=== PATIENT | male | born 1950 | race Caucasian/White ===

== ENCOUNTER → 2018-05-24 09:25 | Outpatient (CLI) | payer MEDICARE, OTHER, SELFPAY ==
--- NOTE | 2018-05-24 | DI.MG.S_ITS ---
MALE BILATERAL DIGITAL DIAGNOSTIC MAMMOGRAM 3D/2D: 05/24/2018 CLINICAL: Left breast pain. Comparison is made to exam dated: 04/27/2017 mammogram - [facility]. There is gynecomastia in the left breast. This is increased in extent when compared with the study dated 04/27/17. No significant masses, calcifications, or other findings are seen in either breast. IMPRESSION: Gynecomastia of the left breast, increased in extent when compared with the prior study. A review of the patient's medications is recommended as some medications can cause gynecomastia. Clinical follow up for resolution is also recommended. There is no mammographic evidence of malignancy. This exam was interpreted at Station ID: [id number]. NOTE: For mammograms, a report in lay terms will be sent to the patient. Approximately 15% of breast malignancies will not be visualized mammographically. In the management of a palpable breast mass, a negative mammogram must not discourage biopsy of a clinically suspicious lesion. Electronically Signed By: Hilda Mittal M.D. lk/:05/24/2018 10:20:52 letter sent: Clinical Evaluation ACR BI-RADS Category 2: Benign Finding(s) 3342F
== END ==
PROVIDERS: PCP Student in an Organized Health Care Education/Training Program; Visit Provider Student in an Organized Health Care Education/Training Program
DX: N64.4 Mastodynia (principal); N62 Hypertrophy of breast
CPT/HCPCS: 77066; G0279

== ENCOUNTER → 2018-06-03 09:09 | Outpatient (CLI) | payer MEDICARE, OTHER, SELFPAY | PROVIDERS: PCP Student in an Organized Health Care Education/Training Program; Visit Provider Student in an Organized Health Care Education/Training Program | DX: N62 Hypertrophy of breast (principal) | CPT/HCPCS: 36415; 84403 ==

== ENCOUNTER → 2018-06-14 15:17 | Outpatient (CLI) | payer MEDICARE, OTHER, SELFPAY ==
[2018-06-14 16:52] LABS: HCG Quantitative /Beta subunit 2.59 mIU/mL (-2.40)
== END ==
PROVIDERS: PCP Student in an Organized Health Care Education/Training Program; Visit Provider Student in an Organized Health Care Education/Training Program
DX: N62 Hypertrophy of breast (principal)
CPT/HCPCS: 36415; 83001; 83002; 84702

== ENCOUNTER → 2018-07-10 09:06 | Outpatient (CLI) | payer MEDICARE, OTHER, SELFPAY ==
[2018-07-10 09:58] LABS: Add Manual Diff / Slide Review NO; Basophils Absolute Auto 0 /uL (0-100); Basophils Percent Auto 0.3 % (0-2); Eosinophils Absolute Auto 300 /uL (0-450); Eosinophils Percent Auto 5.5 % (2-4); Hematocrit 42.1 % (41-53); Hemoglobin 14.6 g/dL (13.5-17.5); Lymphocytes Absolute Auto 900 /uL (1100-4500); Lymphocytes Percent Auto 17.8 % (25-40); Mean Corpuscular HGB Conc 34.6 % (30-36); Mean Corpuscular Hemoglobin 30.9 PG (26-34); Mean Corpuscular Volume 89.4 fL (80-100); Monocytes Absolute Auto 500 /uL (0-900); Monocytes Percent Auto 10.7 % (3-14); Neutrophils Absolute Auto 3200 /uL (1500-7000); Neutrophils Percent Auto 65.7 % (50-75); Platelet Count 132 X10^3/uL (150-400); Red Blood Cell Count 4.71 X10^6/uL (4.5-5.9); Red Cell Distribution Width 13.6 % (11.6-14.8); White Blood Cell Count 4.8 X10^3/uL (4.5-11.0)
[2018-07-10 10:11] LABS: Alanine Aminotransferase 17 IU/L (21-72); Albumin 4.2 g/dL (3.5-5.0); Albumin Globulin Ratio 1.3 (1.0-2.8); Alkaline Phosphatase 82 U/L (38-126); Aspartate Aminotransferase 26 IU/L (17-59); Bilirubin Total 0.9 mg/dL (0.2-1.3); Blood Urea Nitrogen 17 mg/dL (9-20); Calcium 9.4 mg/dL (8.4-10.2); Carbon Dioxide 26 mmol/L (22-32); Chloride 104 mmol/L (98-107); Cholesterol 230 mg/dL (140-199); Estimated Glomerular Filt Rate > 60.0 mL/min (>60); Globulin 3.2 g/dL (1.7-4.1); Glucose 104 mg/dL (80-110); HDL Cholesterol 63 mg/dL (40-60); HEMOLYSIS < 15 (0-50); LDL Cholesterol Calculated 154 mg/dL (<100); Sodium 139 mmol/L (137-145); Total Protein 7.4 g/dL (6.3-8.2); Triglycerides 67 mg/dL (35-150)
== END ==
PROVIDERS: PCP Student in an Organized Health Care Education/Training Program; Visit Provider Student in an Organized Health Care Education/Training Program
DX: F32.9 Major depressive disorder, single episode, unspecified (principal); E78.5 Hyperlipidemia, unspecified
CPT/HCPCS: 36415; 80053; 80061; 85025

== ENCOUNTER → 2018-09-08 12:39 | Outpatient (CLI) | payer MEDICARE, OTHER, SELFPAY | PROVIDERS: PCP Student in an Organized Health Care Education/Training Program; Visit Provider Nurse Practitioner | DX: M89.9 Disorder of bone, unspecified (principal); M40.204 Unspecified kyphosis, thoracic region; M85.80 Other specified disorders of bone density and structure, unspecified site | CPT/HCPCS: 77080 ==

== ENCOUNTER → 2018-11-24 08:11 | Outpatient (CLI) | payer MEDICARE, OTHER, SELFPAY ==
[2018-11-24 09:45] LABS: Alanine Aminotransferase 16 IU/L (21-72); Albumin 4.3 g/dL (3.5-5.0); Albumin Globulin Ratio 1.4 (1.0-2.8); Alkaline Phosphatase 87 U/L (38-126); Aspartate Aminotransferase 29 IU/L (17-59); BUN Creatinine Ratio 16.7 (6-22); Bilirubin Total 0.9 mg/dL (0.2-1.3); Blood Urea Nitrogen 15 mg/dL (9-20); Calcium 9.7 mg/dL (8.4-10.2); Carbon Dioxide 28 mmol/L (22-32); Chloride 105 mmol/L (98-107); Cholesterol 218 mg/dL (140-199); Estimated Glomerular Filt Rate > 60.0 mL/min (>60); Globulin 3.1 g/dL (1.7-4.1); Glucose 96 mg/dL (80-110); HDL Cholesterol 51 mg/dL (40-60); HEMOLYSIS 20 (0-50); LDL Cholesterol Calculated 143 mg/dL (<100); Potassium 4.9 mmol/L (3.4-5.1); Sodium 139 mmol/L (137-145); Total Protein 7.4 g/dL (6.3-8.2); Triglycerides 118 mg/dL (35-150)
== END ==
PROVIDERS: PCP Student in an Organized Health Care Education/Training Program; Visit Provider Student in an Organized Health Care Education/Training Program
DX: E78.5 Hyperlipidemia, unspecified (principal)
CPT/HCPCS: 36415; 80053; 80061

== ENCOUNTER → 2020-04-02 14:42 | Outpatient (ROUT) | payer MEDICARE, OTHER, SELFPAY ==
[2020-04-02 14:55] LABS: Add Manual Diff / Slide Review NO; Basophils Absolute Auto 0 /uL (0-100); Basophils Percent Auto 0.3 % (0-2); Eosinophils Absolute Auto 100 /uL (0-450); Eosinophils Percent Auto 2.1 % (2-4); Hemoglobin 14.9 g/dL (13.5-17.5); Lymphocytes Absolute Auto 800 /uL (1100-4500); Lymphocytes Percent Auto 14.1 % (25-40); Mean Corpuscular HGB Conc 33.8 % (30-36); Mean Corpuscular Hemoglobin 30.9 PG (26-34); Mean Corpuscular Volume 91.4 fL (80-100); Monocytes Absolute Auto 500 /uL (0-900); Monocytes Percent Auto 8.4 % (3-14); Neutrophils Absolute Auto 4100 /uL (1500-7000); Neutrophils Percent Auto 75.1 % (50-75); Platelet Count 135 X10^3/uL (150-400); Red Blood Cell Count 4.81 X10^6/uL (4.5-5.9); Red Cell Distribution Width 13.1 % (11.6-14.8); White Blood Cell Count 5.4 X10^3/uL (4.5-11.0)
[2020-04-02 14:57] LABS: Alanine Aminotransferase 19 IU/L (<50); Albumin 4.4 g/dL (3.5-5.0); Albumin Globulin Ratio 1.4 (1.0-2.8); Alkaline Phosphatase 96 U/L (38-126); Aspartate Aminotransferase 28 IU/L (17-59); BUN Creatinine Ratio 17.8 (6-22); Bilirubin Total 0.9 mg/dL (0.2-1.3); Blood Urea Nitrogen 19 mg/dL (9-20); Calcium 10.3 mg/dL (8.4-10.2); Carbon Dioxide 29 mmol/L (22-32); Chloride 102 mmol/L (98-107); Cholesterol 168 mg/dL (140-199); Estimated Glomerular Filt Rate > 60.0 mL/min (>60); Globulin 3.1 g/dL (1.7-4.1); Glucose 102 mg/dL (80-110); HDL Cholesterol 66 mg/dL (40-60); HEMOLYSIS < 15 (0-50); LDL Cholesterol Calculated 84 mg/dL (<100); Potassium 4.1 mmol/L (3.4-5.1); Sodium 137 mmol/L (137-145); Total Protein 7.5 g/dL (6.3-8.2); Triglycerides 89 mg/dL (35-150)
== END ==
PROVIDERS: PCP Student in an Organized Health Care Education/Training Program; Visit Provider Student in an Organized Health Care Education/Training Program
DX: Z00.00 Encounter for general adult medical examination without abnormal findings (principal); E78.5 Hyperlipidemia, unspecified
CPT/HCPCS: 80053; 80061; 85025

== ENCOUNTER → 2021-05-28 19:06 | Outpatient (CLI) | payer MEDICARE, OTHER, SELFPAY ==
[2021-05-28 20:03] LABS: COVID19 -Nasal RAPID POSITIVE (Negative)
== END ==
PROVIDERS: PCP Student in an Organized Health Care Education/Training Program; Visit Provider Physician Assistant
DX: Z20.822 Contact with and (suspected) exposure to COVID-19 (principal)
CPT/HCPCS: 87635

== ENCOUNTER → 2021-12-17 08:31 | Outpatient (CLI) | payer MEDICARE, OTHER, SELFPAY ==
[2021-12-17 10:15] LABS: Add Manual Diff / Slide Review NO; Basophils Absolute Auto 0 /uL (0-100); Basophils Percent Auto 0.2 % (0-2); Eosinophils Absolute Auto 300 /uL (0-450); Eosinophils Percent Auto 5.4 % (2-4); Hematocrit 41.9 % (41-53); Hemoglobin 14.2 g/dL (13.5-17.5); Lymphocytes Absolute Auto 1000 /uL (1100-4500); Lymphocytes Percent Auto 20.2 % (25-40); Mean Corpuscular Hemoglobin 30.1 PG (26-34); Mean Corpuscular Volume 88.5 fL (80-100); Monocytes Absolute Auto 600 /uL (0-900); Neutrophils Absolute Auto 3200 /uL (1500-7000); Neutrophils Percent Auto 63.2 % (50-75); Platelet Count 121 X10^3/uL (150-400); Red Blood Cell Count 4.73 X10^6/uL (4.5-5.9); Red Cell Distribution Width 13.8 % (11.6-14.8)
[2021-12-17 10:44] LABS: Alanine Aminotransferase 18 IU/L (<50); Albumin 4.1 g/dL (3.5-5.0); Albumin Globulin Ratio 1.2 (1.0-2.8); Alkaline Phosphatase 87 U/L (38-126); Aspartate Aminotransferase 24 IU/L (17-59); Bilirubin Total 0.9 mg/dL (0.2-1.3); Blood Urea Nitrogen 12 mg/dL (9-20); Calcium 9.2 mg/dL (8.4-10.2); Carbon Dioxide 28 mmol/L (22-32); Chloride 103 mmol/L (98-107); Cholesterol 233 mg/dL (140-199); Estimated Glomerular Filt Rate > 60 mL/min (>60); Globulin 3.3 g/dL (1.7-4.1); Glucose 89 mg/dL (80-110); HDL Cholesterol 46 mg/dL (40-60); HEMOLYSIS < 15 (0-50); LDL Cholesterol Calculated 156 mg/dL (<100); Potassium 4.8 mmol/L (3.4-5.1); Sodium 139 mmol/L (137-145); Total Protein 7.4 g/dL (6.3-8.2); Triglycerides 155 mg/dL (35-150)
[2021-12-17 11:13] LABS: Prostate Specific Antigen 1.86 ng/mL (0.10-4.00)
[2021-12-17 11:32] LABS: Hep C Virus Ab w/Reflex Quant NEGATIVE s/c (NEGATIVE)
== END ==
PROVIDERS: PCP Nurse Practitioner; Referring Provider Nurse Practitioner; Visit Provider Nurse Practitioner
DX: D69.3 Immune thrombocytopenic purpura (principal); E78.5 Hyperlipidemia, unspecified; G43.009 Migraine without aura, not intractable, without status migrainosus; Z79.899 Other long term (current) drug therapy; Z12.5 Encounter for screening for malignant neoplasm of prostate
CPT/HCPCS: 36415; 80053; 80061; 84153; 85025; 86803; G0103

== ENCOUNTER → 2022-04-03 08:08 | Outpatient (CLI) | payer MEDICARE, OTHER, SELFPAY ==
[2022-04-03 10:28] LABS: Alanine Aminotransferase 19 IU/L (<50); Albumin 4.2 g/dL (3.5-5.0); Albumin Globulin Ratio 1.4 (1.0-2.8); Alkaline Phosphatase 70 U/L (38-126); Aspartate Aminotransferase 26 IU/L (17-59); BUN Creatinine Ratio 15.6 (6-22); Bilirubin Total 0.9 mg/dL (0.2-1.3); Blood Urea Nitrogen 15 mg/dL (9-20); Carbon Dioxide 27 mmol/L (22-32); Chloride 100 mmol/L (98-107); Cholesterol 184 mg/dL (140-199); Estimated Glomerular Filt Rate > 60 mL/min (>60); Globulin 2.9 g/dL (1.7-4.1); Glucose 83 mg/dL (80-110); HDL Cholesterol 61 mg/dL (40-60); HEMOLYSIS < 15 (0-50); LDL Cholesterol Calculated 105 mg/dL (<100); Potassium 4.1 mmol/L (3.4-5.1); Sodium 137 mmol/L (137-145); Total Protein 7.1 g/dL (6.3-8.2); Triglycerides 92 mg/dL (35-150)
[2022-04-03 10:42] LABS: Free T3, Triiodothyronine Free 3.32 pg/mL (2.77-5.27); Free T4, Direct Thyroxine 1.13 ng/dL (0.78-2.19)
[2022-04-03 10:55] LABS: Thyroid Stimulating Hormone 3.55 uIU/mL (0.47-4.68)
== END ==
PROVIDERS: PCP Nurse Practitioner; Referring Provider Nurse Practitioner; Visit Provider Nurse Practitioner
DX: E78.5 Hyperlipidemia, unspecified (principal); Z79.899 Other long term (current) drug therapy
CPT/HCPCS: 36415; 80053; 80061; 84439; 84443; 84481

== ENCOUNTER 2022-05-05 12:15 | Day surgery (SDC) | payer MEDICARE, OTHER, SELFPAY ==
[2022-04-28 14:34] VITALS: BMI 25.8
[2022-05-05 12:29] VITALS: BMI 25.8
[2022-05-05 12:39] VITALS: BP 132/82; PULSE 99; RESP 16; TEMP 36.3; O2SAT 100
[2022-05-05 13:06] LABS: Add Manual Diff / Slide Review NO; Basophils Absolute Auto 0 /uL (0-100); Basophils Percent Auto 0.3 % (0-2); Eosinophils Absolute Auto 100 /uL (0-450); Eosinophils Percent Auto 1.8 % (2-4); Hematocrit 40.2 % (41-53); Hemoglobin 13.6 g/dL (13.5-17.5); Lymphocytes Absolute Auto 700 /uL (1100-4500); Lymphocytes Percent Auto 13.4 % (25-40); Mean Corpuscular HGB Conc 33.8 % (30-36); Mean Corpuscular Hemoglobin 30.7 PG (26-34); Mean Corpuscular Volume 90.9 fL (80-100); Monocytes Absolute Auto 700 /uL (0-900); Monocytes Percent Auto 12.7 % (3-14); Neutrophils Absolute Auto 3700 /uL (1500-7000); Neutrophils Percent Auto 71.8 % (50-75); Platelet Count 103 X10^3/uL (150-400); Red Blood Cell Count 4.43 X10^6/uL (4.5-5.9); Red Cell Distribution Width 14.4 % (11.6-14.8); White Blood Cell Count 5.2 X10^3/uL (4.5-11.0)
--- NOTE | 2022-05-05 13:23 | PM.PREOP ---
Pre-operative Note COVID-19 COVID-19 status: Not tested Interval Note History & Physical reviewed/Exam performed by Physician: Yes Changes to H&P: No ASA Class (for procedural sedation): II
[2022-05-05] MEDS: CLINDAMYCIN 900 MG/50 ML PIGGYBACK 50 MG IV (13:51)
--- NOTE | 2022-05-05 14:01 | SUR.OPER ---
Supine on padded OR bed, head on pillow, arms secured on padded arm boards at <90 degrees abduction, legs uncrossed, safety belt at thigh, tape over blanket over lower legs.
[2022-05-05 14:59] VITALS: BP 93/58; PULSE 65; RESP 12; TEMP 35.7; O2SAT 95
--- NOTE | 2022-05-05 15:01 | P.OP_ITS ---
Operative Date/Time/Diagnoses Date of procedure: 05/05/22 Time of procedure: 15:01 Pre-op diagnosis: Right inguinal hernia Procedure & Clinicians Procedure: Open right inguinal hernia repair with mesh Same procedure as scheduled: Yes Surgeon: Jack Culp Anesthesia Type: General Operative Notes Procedure in detail: Preoperative antibiotic was administered. The patient was brought to the operating room and placed on the table in supine position general anesthesia was induced. The right groin was prepped and draped in the normal fashion and a time-out was performed. Roughly 10 mL of local anesthetic were injected into the skin and subcutaneous adipose tissue over the right groin. A 6 cm incision was made over the right inguinal canal. Dissection was carried down through the subcutaneous adipose tissue. We exposed the external oblique aponeurosis in the direction of the fibers. Additional local was injected deep to the aponeurosis. A 15 blade scalpel was used to jorge the external oblique aponeurosis. Metzenbaum scissors were used to carefully open the aponeurosis in the direction of the fibers taking care not to injure the underlying ilioinguinal nerve which was well seen and protected. We completely exposed the inguinal canal. The cord was dissected free from the inguinal ligament and floor of the inguinal canal and the external oblique aponeurosis was dissected off of the internal oblique taking care not to injure the hypogastric nerve. We encircled the cord with a Christina drain for retraction. There was a rather large direct defect. We dissected the hernia free from the cord and with the aid of some Trendelenburg positioning we allowed to fall back into the abdominal cavity. We closed the floor with 4 interrupted 3-0 Vicryl sutures to keep the hernia contents down. We then placed a polypropylene mesh against the floor of the inguinal canal. The mesh was secured with multiple interrupted 3-0 Prolene sutures to the pubic tubercle and shelving edge of the inguinal ligament as well as to the conjoint tendon medially. We overlapped the tails to recreate an internal ring and secured the medial tail to the inguinal ligament with additional sutures. We injected some more local into the fatty tissue in the inguinal canal and cord. Finally, we removed the Swengel drain and closed the external oblique fascia with a running 3-0 Vicryl suture. Skin was closed with interrupted 3-0 Vicryl dermal sutures and a running 4 Monocryl subcuticular stitch. EBL 5 mL The patient was awakened and brought to recovery room. Post-operative Condition: stable Disposition: PACU
[2022-05-05 15:03] VITALS: BP 105/70; PULSE 69; RESP 12; O2SAT 98
[2022-05-05 15:08] VITALS: BP 107/70; PULSE 64; RESP 14; O2SAT 96
[2022-05-05 15:18] VITALS: BP 107/70; PULSE 63; RESP 14; O2SAT 98
== END 2022-05-05 16:02 | disposition home or self-care (01) ==
PROVIDERS: PCP Nurse Practitioner; Referring Provider Surgery; Visit Provider Surgery
PROC: (CPT 49505; principal; 2022-05-05 13:15)
DX: K40.90 Unilateral inguinal hernia, without obstruction or gangrene, not specified as recurrent (principal)
CPT/HCPCS: 49505; 85025; J1100; J2250; J2405; J2704; J3010

== ENCOUNTER → 2022-09-18 12:19 | Outpatient (CLI) | payer MEDICARE, OTHER, SELFPAY | PROVIDERS: Family Provider Nurse Practitioner; PCP Nurse Practitioner; Referring Provider Family Medicine; Visit Provider Family Medicine | DX: R20.2 Paresthesia of skin (principal) | CPT/HCPCS: 95886; 95910 ==

== ENCOUNTER → 2022-10-16 08:17 | Outpatient (CLI) | payer MEDICARE, OTHER, SELFPAY ==
[2022-10-16 09:58] LABS: Add Manual Diff / Slide Review NO; Basophils Absolute Auto 0 /uL (0-100); Basophils Percent Auto 0.3 % (0-2); Eosinophils Absolute Auto 100 /uL (0-450); Hematocrit 40.4 % (41-53); Hemoglobin 13.6 g/dL (13.5-17.5); Lymphocytes Absolute Auto 900 /uL (1100-4500); Mean Corpuscular HGB Conc 33.7 % (30-36); Mean Corpuscular Hemoglobin 31.4 PG (26-34); Mean Corpuscular Volume 93.1 fL (80-100); Monocytes Absolute Auto 500 /uL (0-900); Neutrophils Absolute Auto 2900 /uL (1500-7000); Neutrophils Percent Auto 63.7 % (50-75); Platelet Count 156 X10^3/uL (150-400); Red Blood Cell Count 4.33 X10^6/uL (4.5-5.9); Red Cell Distribution Width 13.8 % (11.6-14.8); White Blood Cell Count 4.5 X10^3/uL (4.5-11.0)
[2022-10-16 10:46] LABS: Alanine Aminotransferase 18 IU/L (<50); Albumin 3.9 g/dL (3.5-5.0); Albumin Globulin Ratio 1.3 (1.0-2.8); Alkaline Phosphatase 60 U/L (38-126); Aspartate Aminotransferase 28 IU/L (17-59); Bilirubin Total 0.7 mg/dL (0.2-1.3); Blood Urea Nitrogen 26 mg/dL (9-20); Calcium 8.8 mg/dL (8.4-10.2); Carbon Dioxide 28 mmol/L (22-32); Chloride 101 mmol/L (98-107); Cholesterol 302 mg/dL (140-199); Estimated Glomerular Filt Rate > 60 mL/min (>60); Globulin 3.1 g/dL (1.7-4.1); Glucose 90 mg/dL (80-110); HDL Cholesterol 63 mg/dL (40-60); HEMOLYSIS < 15 (0-50); LDL Cholesterol Calculated 220 mg/dL (<100); Potassium 4.2 mmol/L (3.4-5.1); Sodium 137 mmol/L (137-145); Triglycerides 93 mg/dL (35-150)
== END ==
PROVIDERS: Family Provider Nurse Practitioner; PCP Nurse Practitioner; Referring Provider Nurse Practitioner; Visit Provider Nurse Practitioner
DX: D69.3 Immune thrombocytopenic purpura (principal); E78.5 Hyperlipidemia, unspecified; G43.009 Migraine without aura, not intractable, without status migrainosus; Z79.899 Other long term (current) drug therapy
CPT/HCPCS: 36415; 80053; 80061; 85025

== ENCOUNTER 2022-12-01 09:00 | Outpatient (RCR) | payer MEDICARE, OTHER, SELFPAY ==
--- NOTE | 2022-10-03 13:33 | PT.OPPOC ---
Physical, Occupational & Speech Therapy At [facility] Current Diagnoses Other abnormalities of gait and mobility (10/03/22) History of falling (10/03/22) Visit Care Team Role Provider Type DMITRY Matos Attending Provider Advanced Nursing Home Social Worker Family Provider Primary Care Provider Referring Provider Specialty: [facility] Practice Address: [address] [place] [address], [facility] Email: [email or web address] Plan Of Care PT-OP-T Assessment and Plan Start: 10/02/22 16:01 Freq: Status: Active Protocol: Document 10/03/22 13:33 AM (Rec: 10/03/22 16:00 AM [id number]) Physical Therapy Assessment Rehab Potential Rehabilitation Potential Good Evaluation Complexity Number of Personal Factors/Comorbidities 1-2 Number of Body Systems Impaired 1-2 Clinical Presentation at Evaluation Stable Impairments Impairments Balance,Coordination, Functional Activities,Posture, ROM,Soft Tissue Mobility, Strength Goals Five Impairment Hip strength Impairment Pt with 4-/5 to 4/5 hip strength. Shelter Goal (LTG) Pt able to demonstrate 4/5-4+/ 5 hip strength grossly. LTG Duration 4 weeks Four Impairment HEP Impairment Pt not currently participating in HEP. Shelter Goal (LTG) Pt independent with HEP. LTG Duration 4 weeks Three Impairment Trunk mobility Impairment Pt demonstrates limited trunk mobility in all directions by 50% Shelter Goal (LTG) Pt able to demonstrate 25% improvement in trunk mobility in all directions. LTG Duration 4 weeks Two Impairment Balance Impairment Pt able to maintain balance on R LE for 12 seconds and L for 4 seconds. Short Term Goal (STG) Pt able to maintain balance for 15 seconds on ea LE. STG Duration 2 weeks Shelter Goal (LTG) Pt able to maintain balance for 20 seconds ea LE. LTG Duration 4 weeks One Impairment Bilateral foot symptoms Impairment Pt rates foot numbness at 7/10 . Short Term Goal (STG) Pt will report foot numbness rating at 4/10. STG Duration 2 weeks Shelter Goal (LTG) Pt will report foot numbness rating at 2/10. LTG Duration 4 weeks Progress Towards Goals Progress Towards Goals Progressing Toward Goals Assessment Summary Assessment Santos Schwartz presents to PT to address bilateral foot numbness, which began in the last year. Pt reported decrease in symptoms during tx session with general activity , though no reported change with specific positions. Pt demonstrated good balance per Bradley Balance Assessment. Pt does demonstrate increased difficulty with maintaining balance on uneven surfaces and with SLS. Pt demonstrated R hip anterior impingement with SKTC and DKTC. Pt presents with sway posture and demonstrates trunk stiffness in all directions. Pt also demonstrates bilateral hamstring and hip flexor stiffness. Pt given LE and trunk stretches in HEP, though encouraged to avoid painful ranges. Pt with trunk and hip strength deficits and would benefit from trunk stabilization as tolerated in future visits. Pt would benefit from continued PT to improve trunk mobility, strength and balance to decrease fall risk with continued monitoring of foot symptoms. Physical Therapy Plan Frequency and Duration Frequency of Treatment 2x/Week Duration of treatment (weeks) 4 Plan of Care Start Date 10/03/22 Plan of Care End Date 10/31/22 Therapeutic Interventions Therapeutic Interventions Balance Training,Coordination Training,Gait Training,Home Exercise Program,Joint Mobilizations,Neuromuscular Re -education,Patient/Caregiver Education,Self-Care/Home Management,Soft Tissue Mobilization,Taping, Therapeutic Activities, Therapeutic Exercises Modalities Cold Pack/Ice Massage,Electric Stimulation,Hot Packs, Ultrasound Next Visit Focus/Plan Next Note Type Treatment Note Next Visit Plan Balance exercises, progress spinal mobility and LE flexibility, manual techniques to decompress lumbosacral spine Plan of Care Dates Plan of Care Start Date 10/03/22 Plan of Care End Date 10/31/22 Electronically Signed by: Mita Dailey, PT 10/03/22 [id number] If you are in agreement with this Plan of Care, please return a signed and dated copy. I have reviewed this Plan of Care and certify that the skilled therapy services above are required to meet the patient?s needs. Physician Signature Date Printed Name and Credentials Clinical Instructor Signature Printed Name and Credentials
--- NOTE | 2022-10-03 13:33 | PT.OIE ---
Current Diagnoses Other abnormalities of gait and mobility (10/03/22) History of falling (10/03/22) Past Medical History (Last Updated 09/11/22 @ 11:50 by DMITRY Matos) Asthma Atopic dermatitis Chronic ITP (idiopathic thrombocytopenia) History of ITP Hyperlipidemia Inguinal hernia Migraine headache without aura Numbness of toes Past Surgical History (Last Reviewed 09/11/22 @ 11:48 by DMITRY Matos) Seco teeth removed Visit Care Team Role Provider Type DMITRY Matos Attending Provider Advanced Desulfurizer Hand Family Provider Primary Care Provider Referring Provider Specialty: Family Practice Address: [address] [place] [address] Email: [email or web address] Physical Therapy Initial Evaluation PT-OP-A Visit Information Start: 10/02/22 16:01 Freq: Status: Active Protocol: Document 10/03/22 13:33 AM (Rec: 10/03/22 16:00 AM [id number]) Out-Patient Physical Therapy Visit Information Visit Information Visit Type Initial Evaluation Visit Start Time 13:33 Visit Stop Time 14:25 Total Visit Minutes 52 Visit Number 1 Number of TRANSMITTER OPERATOR Visits 0 Evaluation Information Evaluation Date 10/03/22 PT-OP-B Current Condition Start: 10/02/22 16:01 Freq: Status: Active Protocol: Document 10/03/22 13:33 AM (Rec: 10/03/22 16:00 AM [id number]) Current Condition History of Current Condition Onset Date End of 2021/early 2022 Current Complaints c/o numbness bilateral toes. History of Current Condition c/o numbness bilateral toes. Denies pain in toes. First noticed this feeling on the left side, but now notices it in R as well. Pt has Raynauds. c/o generally cold feet unless he goes for a walk, then they are warm. Pt had a fall a few months ago. Pt stubbed his toe and fell. Pt reports that he has not noticed instability with numbness in feet. Pt interested in PT for core strength, balance. 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, ongoing denervation in bilatearl MG/ glut max/lower lumbosacral paraspinal muscles; Right L5 spinal nerve lesion affecting R TA/FHL/lower lumbosavral paraspinal muscles; Left chronic L5 spinal nerve lesion Treatment Goals Patient/Caregiver Goals Improve balance, decrease numbness symptoms at feet PT-OP-C Subjective Start: 10/02/22 16:01 Freq: Status: Active Protocol: Document 10/03/22 13:33 AM (Rec: 10/03/22 16:00 AM [id number]) OP-PT Subjective Patient Comments Patient Reported Progress Same Patient Questionnaires ABC- Activity Specific Balance Confidence Scale ABC Score 1520 ABC Functional Impairment 1 to <20% Impaired (Score 81- 99) OP-PT Pain Assessment Pain Assessment Grid Paper Pain Assessment Grid Completed No: Pt reports that he has not pain currently. Pt reports LBP rarely Location Bilateral Foot Pain Location Details No pain, though pt asked to rate numbness Intensity 7 Scale Used Numeric (0 - 10) Description- Other Numbness only Frequency Constant Variations/Patterns Pt feels symptoms are slightly better after walking Pain Aggravating Factors None Other Pain Alleviating Factors Walking helps PT-OP-D Balance Start: 10/02/22 16:01 Freq: Status: Active Protocol: Document 10/03/22 13:33 AM (Rec: 10/03/22 16:00 AM [id number]) OP-PT Balance Assessment Sitting Balance Static Sitting Balance Ability Normal Dynamic Sitting Balance Ability Normal Standing Balance Static Standing Balance Ability Good Dynamic Standing Balance Ability Good Balance Tests Single Limb Standing Single Limb- Right 12 sec Single Limb- Left 4 sec Tandem Tandem Standing 30 sec Bradley Balance Assessment Evaluation Sitting to Standing Ability Independent w/out Hands Unsupported Stance Safely- 2 minutes Sitting Unsupported, Feet on Floor Safely- 2 minutes Standing to Sitting Ability Safely, Minimal Hand Use Transfer Ability Safely, Minimal Hand Use Unsupported Stance- Eyes Closed Safely, 10 seconds Unsupported Stance- Eyes Open Independent, 1 minute Reaching Forward Standing Confidently, 10 inches Pick- Up Object From Floor Independent/Safe Look Behind Shoulder - Standing Shifts Weight Well Turning 360 Degrees Turns Bilateral, < 4 secs Unsupported Stance, Alternating Feet on (I)- 8 Steps in 20 secs Stair Unsupported Tandem Stance Achieves Tandem Unilateral Leg Stance Lifts Leg/Holds 10 secs Total Score Bradley Total Score (out of 56 points) 56 Bradley Impairment Rating 0% Impaired (Score 56) Mkcay Fall Scale Copyright Permission PT-OP-E Functional Tests Start: 10/02/22 16:01 Freq: Status: Active Protocol: Document 10/03/22 13:33 AM (Rec: 10/03/22 16:00 AM [id number]) Functional Tests Five Times Sit to Stand Test Score :9.23 Comments cued to not use back of legs against chair PT-OP-G Mobility & Gait Start: 10/02/22 16:01 Freq: Status: Active Protocol: Document 10/03/22 13:33 AM (Rec: 10/03/22 16:00 AM [id number]) OP Gait Assessment Gait Gait Assistance Required: Independent Assistive Devices Assistive Device None Gait Deviations General Gait Pattern Flexed Trunk Factors Limiting Gait Function Factors Limiting Gait Function Decreased Sensation PT-OP-H Neuro Start: 10/02/22 16:01 Freq: Status: Active Protocol: Document 10/03/22 13:33 AM (Rec: 10/03/22 16:00 AM [id number]) Sensation Evaluation Gross Sensation Gross Sensation Left LE Impaired,Right LE Impaired Sensation Description Numbness PT-OP-J Posture/Palpation/Skin Start: 10/02/22 16:01 Freq: Status: Active Protocol: Document 10/03/22 13:33 AM (Rec: 10/03/22 16:00 AM [id number]) Posture Evaluation Position Standing Evaluation View Lateral Head/C-Spine Posture Forward Head T-Spine Posture Increased Kyphosis L-Spine Posture Flattened Shoulder Posture (L) Rounded,(R) Rounded PT-OP-K Range of Motion Start: 10/02/22 16:01 Freq: Status: Active Protocol: Document 10/03/22 13:33 AM (Rec: 10/03/22 16:00 AM [id number]) Lumbar Spine Range of Motion Lumbar Spine Active Percentage Testing Position Standing Flexion 50 Extension 25 Rotation Left 50 Rotation Right 50 Lateral Flexion Left 50 Lateral Flexion Right 50 ROM Limitations Soft Tissue Tightness Comments Flexion Finger-toes: 8 inches from ground R LF:18.5 in L LF: 19.5 in Ext: neutral Knee Goniometric Range of Motion Knee ROM Limitations Knee ROM Limitations Soft Tissue Tightness Comments Hamstring 90/90 R: 32 deg L: 40 deg PT-OP-M Strength Start: 10/02/22 16:01 Freq: Status: Active Protocol: Document 10/03/22 13:33 AM (Rec: 08/25/23 16:00 AM [id number]) Hip Strength Hip Manual Muscle Testing Right Flexion (L2) 4 Good Extension (S1) 4 Good Abduction 4- Good- Adduction 4+ Good+ Left Flexion (L2) 4 Good Extension (S1) 4 Good Abduction 4- Good- Adduction 4+ Good+ Knee Strength Knee Manual Muscle Testing Right Flexion (S2) 4+ Good+ Extension (L3) 4+ Good+ Left Flexion (S2) 4+ Good+ Extension (L3) 4+ Good+ Ankle/Foot Strength Ankle and Foot Manual Muscle Testing Right Dorsiflexion (L4) 5 Normal Plantarflexion (S1) 5 Normal Left Dorsiflexion (L4) 5 Normal Plantarflexion (S1) 5 Normal PT-OP-Q Treatments Start: 10/02/22 16:01 Freq: Status: Active Protocol: Document 10/03/22 13:33 AM (Rec: 10/03/22 16:00 AM [id number]) Therapeutic Exercises Supine Exercises 1 Supine Exercise Name Lower trunk rotation Side bilateral Reps/Minutes x5 ea side Comments Hooklying Standing Exercises 2 Standing Exercise Name Hamstring stretch Side bilateral Equipment Used At stairs, foot propped Reps/Minutes 30 sec ea LE 1 Standing Exercise Name Gastroc stretch runner's stretch Side bilateral Reps/Minutes x30 sec ea PT-OP-T Assessment and Plan Start: 10/02/22 16:01 Freq: Status: Active Protocol: Document 10/03/22 13:33 AM (Rec: 10/03/22 16:00 AM [id number]) Physical Therapy Assessment Rehab Potential Rehabilitation Potential Good Evaluation Complexity Number of Personal Factors/Comorbidities 1-2 Number of Body Systems Impaired 1-2 Clinical Presentation at Evaluation Stable Impairments Impairments Balance,Coordination, Functional Activities,Posture, ROM,Soft Tissue Mobility, Strength Goals Five Impairment Hip strength Impairment Pt with 4-/5 to 4/5 hip strength. Nursing Home Goal (LTG) Pt able to demonstrate 4/5-4+/ 5 hip strength grossly. LTG Duration 4 weeks Four Impairment HEP Impairment Pt not currently participating in HEP. Wafer Line Worker Goal (LTG) Pt independent with HEP. LTG Duration 4 weeks Three Impairment Trunk mobility Impairment Pt demonstrates limited trunk mobility in all directions by 50% Nursing Home Goal (LTG) Pt able to demonstrate 25% improvement in trunk mobility in all directions. LTG Duration 4 weeks Two Impairment Balance Impairment Pt able to maintain balance on R LE for 12 seconds and L for 4 seconds. Short Term Goal (STG) Pt able to maintain balance for 15 seconds on ea LE. STG Duration 2 weeks Wafer Line Worker Goal (LTG) Pt able to maintain balance for 20 seconds ea LE. LTG Duration 4 weeks One Impairment Bilateral foot symptoms Impairment Pt rates foot numbness at 7/10 . Short Term Goal (STG) Pt will report foot numbness rating at 4/10. STG Duration 2 weeks Wafer Line Worker Goal (LTG) Pt will report foot numbness rating at 2/10. LTG Duration 4 weeks Progress Towards Goals Progress Towards Goals Progressing Toward Goals Assessment Summary Assessment Santos Schwartz presents to PT to address bilateral foot numbness, which began in the last year. Pt reported decrease in symptoms during tx session with general activity , though no reported change with specific positions. Pt demonstrated good balance per Bradley Balance Assessment. Pt does demonstrate increased difficulty with maintaining balance on uneven surfaces and with SLS. Pt demonstrated R hip anterior impingement with SKTC and DKTC. Pt presents with sway posture and demonstrates trunk stiffness in all directions. Pt also demonstrates bilateral hamstring and hip flexor stiffness. Pt given LE and trunk stretches in HEP, though encouraged to avoid painful ranges. Pt with trunk and hip strength deficits and would benefit from trunk stabilization as tolerated in future visits. Pt would benefit from continued PT to improve trunk mobility, strength and balance to decrease fall risk with continued monitoring of foot symptoms. Physical Therapy Plan Frequency and Duration Frequency of Treatment 2x/Week Duration of treatment (weeks) 4 Plan of Care Start Date 10/03/22 Plan of Care End Date 10/31/22 Therapeutic Interventions Therapeutic Interventions Balance Training,Coordination Training,Gait Training,Home Exercise Program,Joint Mobilizations,Neuromuscular Re -education,Patient/Caregiver Education,Self-Care/Home Management,Soft Tissue Mobilization,Taping, Therapeutic Activities, Therapeutic Exercises Modalities Cold Pack/Ice Massage,Electric Stimulation,Hot Packs, Ultrasound Next Visit Focus/Plan Next Note Type Treatment Note Next Visit Plan Balance exercises, progress spinal mobility and LE flexibility, manual techniques to decompress lumbosacral spine
--- NOTE | 2022-10-07 10:34 | PT.OTN ---
Current Diagnoses Other abnormalities of gait and mobility (10/07/22) History of falling (10/07/22) Physical Therapy Treatment Note PT-OP-A Visit Information Start: 10/02/22 16:01 Freq: Status: Active Protocol: Document 10/07/22 10:34 AM (Rec: 10/07/22 11:21 AM [id number]) Out-Patient Physical Therapy Visit Information Visit Information Visit Type Treatment Note Visit Start Time 10:34 Visit Stop Time 11:19 Total Visit Minutes 45 Visit Number 2 Number of DIRECTOR FAMILY Visits 0 PT-OP-B Current Condition Start: 10/02/22 16:01 Freq: Status: Active Protocol: Document 10/07/22 10:34 AM (Rec: 10/07/22 11:21 AM [id number]) Current Condition History of Current Condition Onset Date End of 2021/early 2022 Current Complaints c/o numbness bilateral toes. History of Current Condition c/o numbness bilateral toes. Denies pain in toes. First noticed this feeling on the left side, but now notices it in R as well. Pt has Raynauds. c/o generally cold feet unless he goes for a walk, then they are warm. Pt had a fall a few months ago. Pt stubbed his toe and fell. Pt reports that he has not noticed instability with numbness in feet. Pt interested in PT for core strength, balance. 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 Patient Reported Progress Improving PT-OP-D Balance Start: 10/02/22 16:01 Freq: Status: Active Protocol: Document 10/03/22 13:33 AM (Rec: 10/03/22 16:00 AM [id number]) OP-PT Balance Assessment Sitting Balance Static Sitting Balance Ability Normal Dynamic Sitting Balance Ability Normal Standing Balance Static Standing Balance Ability Good Dynamic Standing Balance Ability Good Balance Tests Single Limb Standing Single Limb- Right 12 sec Single Limb- Left 4 sec Tandem Tandem Standing 30 sec Bradley Balance Assessment Evaluation Sitting to Standing Ability Independent w/out Hands Unsupported Stance Safely- 2 minutes Sitting Unsupported, Feet on Floor Safely- 2 minutes Standing to Sitting Ability Safely, Minimal Hand Use Transfer Ability Safely, Minimal Hand Use Unsupported Stance- Eyes Closed Safely, 10 seconds Unsupported Stance- Eyes Open Independent, 1 minute Reaching Forward Standing Confidently, 10 inches Pick- Up Object From Floor Independent/Safe Look Behind Shoulder - Standing Shifts Weight Well Turning 360 Degrees Turns Bilateral, < 4 secs Unsupported Stance, Alternating Feet on (I)- 8 Steps in 20 secs Stair Unsupported Tandem Stance Achieves Tandem Unilateral Leg Stance Lifts Leg/Holds 10 secs Total Score Bradley Total Score (out of 56 points) 56 Bradley Impairment Rating 0% Impaired (Score 56) Mckay Fall Scale Copyright Permission PT-OP-E Functional Tests Start: 10/02/22 16:01 Freq: Status: Active Protocol: Document 10/03/22 13:33 AM (Rec: 10/03/22 16:00 AM [id number]) Functional Tests Five Times Sit to Stand Test Score :9.23 Comments cued to not use back of legs against chair PT-OP-G Mobility & Gait Start: 10/02/22 16:01 Freq: Status: Active Protocol: Document 10/03/22 13:33 AM (Rec: 10/03/22 16:00 AM [id number]) OP Gait Assessment Gait Gait Assistance Required: Independent Assistive Devices Assistive Device None Gait Deviations General Gait Pattern Flexed Trunk Factors Limiting Gait Function Factors Limiting Gait Function Decreased Sensation PT-OP-H Neuro Start: 10/02/22 16:01 Freq: Status: Active Protocol: Document 10/03/22 13:33 AM (Rec: 10/03/22 16:00 AM [id number]) Sensation Evaluation Gross Sensation Gross Sensation Left LE Impaired,Right LE Impaired Sensation Description Numbness PT-OP-J Posture/Palpation/Skin Start: 10/02/22 16:01 Freq: Status: Active Protocol: Document 10/03/22 13:33 AM (Rec: 10/03/22 16:00 AM [id number]) Posture Evaluation Position Standing Evaluation View Lateral Head/C-Spine Posture Forward Head T-Spine Posture Increased Kyphosis L-Spine Posture Flattened Shoulder Posture (L) Rounded,(R) Rounded PT-OP-K Range of Motion Start: 10/02/22 16:01 Freq: Status: Active Protocol: Document 10/03/22 13:33 AM (Rec: 10/03/22 16:00 AM [id number]) Lumbar Spine Range of Motion Lumbar Spine Active Percentage Testing Position Standing Flexion 50 Extension 25 Rotation Left 50 Rotation Right 50 Lateral Flexion Left 50 Lateral Flexion Right 50 ROM Limitations Soft Tissue Tightness Comments Flexion Finger-toes: 8 inches from ground R LF:18.5 in L LF: 19.5 in Ext: neutral Knee Goniometric Range of Motion Knee ROM Limitations Knee ROM Limitations Soft Tissue Tightness Comments Hamstring 90/90 R: 32 deg L: 40 deg PT-OP-M Strength Start: 10/02/22 16:01 Freq: Status: Active Protocol: Document 10/03/22 13:33 AM (Rec: 10/03/22 16:00 AM [id number]) Hip Strength Hip Manual Muscle Testing Right Flexion (L2) 4 Good Extension (S1) 4 Good Abduction 4- Good- Adduction 4+ Good+ Left Flexion (L2) 4 Good Extension (S1) 4 Good Abduction 4- Good- Adduction 4+ Good+ Knee Strength Knee Manual Muscle Testing Right Flexion (S2) 4+ Good+ Extension (L3) 4+ Good+ Left Flexion (S2) 4+ Good+ Extension (L3) 4+ Good+ Ankle/Foot Strength Ankle and Foot Manual Muscle Testing Right Dorsiflexion (L4) 5 Normal Plantarflexion (S1) 5 Normal Left Dorsiflexion (L4) 5 Normal Plantarflexion (S1) 5 Normal PT-OP-Q Treatments Start: 10/02/22 16:01 Freq: Status: Active Protocol: Document 10/07/22 10:34 AM (Rec: 10/07/22 11:21 AM [id number]) Cardio Equipment Recumbent Bicycle Duration (Minutes) 5 Resistance 9 Seat Position 7 Therapeutic Exercises Supine Exercises 1 Supine Exercise Name Lower trunk rotation Side bilateral Reps/Minutes x5 ea side Comments Hooklying Standing Exercises 2 Standing Exercise Name Hamstring stretch Side bilateral Equipment Used At stairs, foot propped Reps/Minutes 30 sec ea LE 1 Standing Exercise Name Gastroc stretch runner's stretch Side bilateral Reps/Minutes x30 sec ea Manual Therapy Treatment Soft Tissue Mobilization Low back STM Body Location Lumbar paraspinals, QL Mobilization Type Myofascial Release Intensity/Depth Moderate Body Position Prone Joint Mobilizations Lumbar P-A Joint L4-5, L5-S1 Direction P-A mob Grade II Body Position Prone Reps/Duration 3x1 min Manual Traction Lumbar Details Lumbar manual traction Body Position Hooklying Reps/Duration 3x1 min Comments LE on green swissball, traction from manually pulling on feet Neuro Re-Education Treatment Balance Activities Stepping pads Details Tandem stance Surface uneven Equipment green stepping pods Reps/Duration x1 min ea side Comments With head turns BOSU balance Details Standing balance on BOSU Equipment BOSU Reps/Duration x2 min Comments With head turns as able PT-OP-T Assessment and Plan Start: 10/02/22 16:01 Freq: Status: Active Protocol: Document 10/07/22 10:34 AM (Rec: 10/07/22 11:21 AM [id number]) Physical Therapy Assessment Impairments Impairments Balance,Coordination, Functional Activities,Posture, ROM,Soft Tissue Mobility, Strength Goals Five Impairment Hip strength Impairment Pt with 4-/5 to 4/5 hip strength. Director Of Public Relations Goal (LTG) Pt able to demonstrate 4/5-4+/ 5 hip strength grossly. LTG Duration 4 weeks Four Impairment HEP Impairment Pt not currently participating in HEP. Jail Goal (LTG) Pt independent with HEP. LTG Duration 4 weeks Three Impairment Trunk mobility Impairment Pt demonstrates limited trunk mobility in all directions by 50% Director Of Public Relations Goal (LTG) Pt able to demonstrate 25% improvement in trunk mobility in all directions. LTG Duration 4 weeks Two Impairment Balance Impairment Pt able to maintain balance on R LE for 12 seconds and L for 4 seconds. Short Term Goal (STG) Pt able to maintain balance for 15 seconds on ea LE. STG Duration 2 weeks Director Of Public Relations Goal (LTG) Pt able to maintain balance for 20 seconds ea LE. LTG Duration 4 weeks One Impairment Bilateral foot symptoms Impairment Pt rates foot numbness at 7/10 . Short Term Goal (STG) Pt will report foot numbness rating at 4/10. STG Duration 2 weeks Jail Goal (LTG) Pt will report foot numbness rating at 2/10. LTG Duration 4 weeks Progress Towards Goals Progress Towards Goals Progressing Toward Goals Assessment Summary Assessment Pt with reported decrease in foot symptoms following tx session, reporting that feet felt warmer. Pt challenged with balance on BOSU today, reporting that he had not had issues with this task prior to recent hernia repair. Pt with minimal tenderness with palpation/STM of lumbar paraspinals today. Pt with reported decrease in symptoms with lumbar P-A mobilizations. Pt will return to PT later this week to continue to progress spinal mobility and balance as tolerated. Physical Therapy Plan Frequency and Duration Frequency of Treatment 2x/Week Duration of treatment (weeks) 4 Plan of Care Start Date 10/03/22 Plan of Care End Date 10/31/22 Therapeutic Interventions Therapeutic Interventions Balance Training,Coordination Training,Gait Training,Home Exercise Program,Joint Mobilizations,Neuromuscular Re -education,Patient/Caregiver Education,Self-Care/Home Management,Soft Tissue Mobilization,Taping, Therapeutic Activities, Therapeutic Exercises Modalities Cold Pack/Ice Massage,Electric Stimulation,Hot Packs, Ultrasound Next Visit Focus/Plan Next Note Type Treatment Note Next Visit Plan Progress balance exercises, add dynamic balance, progress trunk exercises as tolerated
--- NOTE | 2022-10-09 10:35 | PT.OTN ---
Current Diagnoses Other abnormalities of gait and mobility (10/09/22) History of falling (10/09/22) Physical Therapy Treatment Note PT-OP-A Visit Information Start: 10/02/22 16:01 Freq: Status: Active Protocol: Document 10/09/22 10:35 AM (Rec: 10/09/22 11:37 AM [id number]) Out-Patient Physical Therapy Visit Information Visit Information Visit Type Treatment Note Visit Start Time 10:36 Visit Stop Time 11:21 Total Visit Minutes 45 Visit Number 3 PT-OP-B Current Condition Start: 10/02/22 16:01 Freq: Status: Active Protocol: Document 10/09/22 10:35 AM (Rec: 10/09/22 11:37 AM [id number]) Current Condition History of Current Condition Onset Date End of 2021/early 2022 Current Complaints c/o numbness bilateral toes. History of Current Condition c/o numbness bilateral toes. Denies pain in toes. First noticed this feeling on the left side, but now notices it in R as well. Pt has Raynauds. c/o generally cold feet unless he goes for a walk, then they are warm. Pt had a fall a few months ago. Pt stubbed his toe and fell. Pt reports that he has not noticed instability with numbness in feet. Pt interested in PT for core strength, balance. 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 Pt reports that he is unsure if perceived temperature of feet and numbness at related. Patient Reported Progress Same PT-OP-D Balance Start: 10/02/22 16:01 Freq: Status: Active Protocol: Document 10/03/22 13:33 AM (Rec: 10/03/22 16:00 AM [id number]) OP-PT Balance Assessment Sitting Balance Static Sitting Balance Ability Normal Dynamic Sitting Balance Ability Normal Standing Balance Static Standing Balance Ability Good Dynamic Standing Balance Ability Good Balance Tests Single Limb Standing Single Limb- Right 12 sec Single Limb- Left 4 sec Tandem Tandem Standing 30 sec Bradley Balance Assessment Evaluation Sitting to Standing Ability Independent w/out Hands Unsupported Stance Safely- 2 minutes Sitting Unsupported, Feet on Floor Safely- 2 minutes Standing to Sitting Ability Safely, Minimal Hand Use Transfer Ability Safely, Minimal Hand Use Unsupported Stance- Eyes Closed Safely, 10 seconds Unsupported Stance- Eyes Open Independent, 1 minute Reaching Forward Standing Confidently, 10 inches Pick- Up Object From Floor Independent/Safe Look Behind Shoulder - Standing Shifts Weight Well Turning 360 Degrees Turns Bilateral, < 4 secs Unsupported Stance, Alternating Feet on (I)- 8 Steps in 20 secs Stair Unsupported Tandem Stance Achieves Tandem Unilateral Leg Stance Lifts Leg/Holds 10 secs Total Score Bradley Total Score (out of 56 points) 56 Bradley Impairment Rating 0% Impaired (Score 56) Mckay Fall Scale Copyright Permission PT-OP-E Functional Tests Start: 10/02/22 16:01 Freq: Status: Active Protocol: Document 10/03/22 13:33 AM (Rec: 10/03/22 16:00 AM [id number]) Functional Tests Five Times Sit to Stand Test Score :9.23 Comments cued to not use back of legs against chair PT-OP-G Mobility & Gait Start: 10/02/22 16:01 Freq: Status: Active Protocol: Document 10/03/22 13:33 AM (Rec: 10/03/22 16:00 AM [id number]) OP Gait Assessment Gait Gait Assistance Required: Independent Assistive Devices Assistive Device None Gait Deviations General Gait Pattern Flexed Trunk Factors Limiting Gait Function Factors Limiting Gait Function Decreased Sensation PT-OP-H Neuro Start: 10/02/22 16:01 Freq: Status: Active Protocol: Document 10/03/22 13:33 AM (Rec: 10/03/22 16:00 AM [id number]) Sensation Evaluation Gross Sensation Gross Sensation Left LE Impaired,Right LE Impaired Sensation Description Numbness PT-OP-J Posture/Palpation/Skin Start: 10/02/22 16:01 Freq: Status: Active Protocol: Document 10/03/22 13:33 AM (Rec: 10/03/22 16:00 AM [id number]) Posture Evaluation Position Standing Evaluation View Lateral Head/C-Spine Posture Forward Head T-Spine Posture Increased Kyphosis L-Spine Posture Flattened Shoulder Posture (L) Rounded,(R) Rounded PT-OP-K Range of Motion Start: 10/02/22 16:01 Freq: Status: Active Protocol: Document 10/03/22 13:33 AM (Rec: 10/03/22 16:00 AM [id number]) Lumbar Spine Range of Motion Lumbar Spine Active Percentage Testing Position Standing Flexion 50 Extension 25 Rotation Left 50 Rotation Right 50 Lateral Flexion Left 50 Lateral Flexion Right 50 ROM Limitations Soft Tissue Tightness Comments Flexion Finger-toes: 8 inches from ground R LF:18.5 in L LF: 19.5 in Ext: neutral Knee Goniometric Range of Motion Knee ROM Limitations Knee ROM Limitations Soft Tissue Tightness Comments Hamstring 90/90 R: 32 deg L: 40 deg PT-OP-M Strength Start: 10/02/22 16:01 Freq: Status: Active Protocol: Document 10/03/22 13:33 AM (Rec: 10/03/22 16:00 AM [id number]) Hip Strength Hip Manual Muscle Testing Right Flexion (L2) 4 Good Extension (S1) 4 Good Abduction 4- Good- Adduction 4+ Good+ Left Flexion (L2) 4 Good Extension (S1) 4 Good Abduction 4- Good- Adduction 4+ Good+ Knee Strength Knee Manual Muscle Testing Right Flexion (S2) 4+ Good+ Extension (L3) 4+ Good+ Left Flexion (S2) 4+ Good+ Extension (L3) 4+ Good+ Ankle/Foot Strength Ankle and Foot Manual Muscle Testing Right Dorsiflexion (L4) 5 Normal Plantarflexion (S1) 5 Normal Left Dorsiflexion (L4) 5 Normal Plantarflexion (S1) 5 Normal PT-OP-Q Treatments Start: 10/02/22 16:01 Freq: Status: Active Protocol: Document 10/09/22 10:35 AM (Rec: 10/09/22 11:37 AM [id number]) Cardio Equipment Recumbent Bicycle Duration (Minutes) 5 Resistance 10 Seat Position 7 Therapeutic Exercises Sidelying Exercises clamshells Sidelying Exercise Name Clamshell Side bilateral Reps/Minutes 15 Comments Manual cueing at pelvis to decrease rolling Standing Exercises Resisted side steps Standing Exercise Name Resisted side step Side bilateral Resistance Sanders TB Reps/Minutes 2x20 ft Other Exercises Kneeling hip flexor stretch Other Exercise Name Kneeling hip flexor stretch Side bilateral Reps/Minutes x1 min Manual Therapy Treatment Soft Tissue Mobilization Low back STM Body Location Lumbar paraspinals, QL Mobilization Type Myofascial Release Intensity/Depth Moderate Body Position Prone Neuro Re-Education Treatment Balance Activities SLS Details SLS Surface on even and uneven surface Reps/Duration 2x30 sec ea BOSU balance Details Standing balance on BOSU Equipment BOSU Reps/Duration 5 min Comments Also, step ups on BOSU PT-OP-T Assessment and Plan Start: 10/02/22 16:01 Freq: Status: Active Protocol: Document 10/09/22 10:35 AM (Rec: 10/09/22 11:37 AM [id number]) Physical Therapy Assessment Impairments Impairments Balance,Coordination, Functional Activities,Posture, ROM,Soft Tissue Mobility, Strength Goals Five Impairment Hip strength Impairment Pt with 4-/5 to 4/5 hip strength. Nursing Home Goal (LTG) Pt able to demonstrate 4/5-4+/ 5 hip strength grossly. LTG Duration 4 weeks Four Impairment HEP Impairment Pt not currently participating in HEP. Senior Managing Director Goal (LTG) Pt independent with HEP. LTG Duration 4 weeks Three Impairment Trunk mobility Impairment Pt demonstrates limited trunk mobility in all directions by 50% Nursing Home Goal (LTG) Pt able to demonstrate 25% improvement in trunk mobility in all directions. LTG Duration 4 weeks Two Impairment Balance Impairment Pt able to maintain balance on R LE for 12 seconds and L for 4 seconds. Short Term Goal (STG) Pt able to maintain balance for 15 seconds on ea LE. STG Duration 10/17/22 Nursing Home Goal (LTG) Pt able to maintain balance for 20 seconds ea LE. LTG Duration 4 weeks One Impairment Bilateral foot symptoms Impairment Pt rates foot numbness at 7/10 . Short Term Goal (STG) Pt will report foot numbness rating at 4/10. STG Duration 10/17/22 Nursing Home Goal (LTG) Pt will report foot numbness rating at 2/10. LTG Duration 4 weeks Progress Towards Goals Progress Towards Goals Progressing Toward Goals Assessment Summary Assessment Pt tolerated tx session well overall today. Pt with reported warmness at feet following kneeling hip flexor stretch. Pt with reported strong stretch at hip flexors with kneeling stretch. Pt continues to be challenged with single leg stance and balance on BOSU. Pt demonstrates hip drop with SLS . Pt demonstrates myofascial restrictions at bilateral QL. Physical Therapy Plan Frequency and Duration Frequency of Treatment 2x/Week Duration of treatment (weeks) 4 Plan of Care Start Date 10/03/22 Plan of Care End Date 10/31/22 Therapeutic Interventions Therapeutic Interventions Balance Training,Coordination Training,Gait Training,Home Exercise Program,Joint Mobilizations,Neuromuscular Re -education,Patient/Caregiver Education,Self-Care/Home Management,Soft Tissue Mobilization,Taping, Therapeutic Activities, Therapeutic Exercises Modalities Cold Pack/Ice Massage,Electric Stimulation,Hot Packs, Ultrasound Next Visit Focus/Plan Next Note Type Treatment Note Next Visit Plan Continue to progress balance, progress trunk exercises as tolerated
--- NOTE | 2022-10-16 16:33 | PT.OTN ---
Current Diagnoses Other abnormalities of gait and mobility (10/16/22) History of falling (10/16/22) Physical Therapy Treatment Note PT-OP-A Visit Information Start: 10/02/22 16:01 Freq: Status: Active Protocol: Document 10/16/22 09:19 SW (Rec: 10/16/22 10:02 [id number]) Out-Patient Physical Therapy Visit Information Visit Information Visit Type Treatment Note Visit Start Time 09:16 Visit Stop Time 10:00 Total Visit Minutes 44 Visit Number 4 Number of POLICE MANAGER Visits 1 PT-OP-B Current Condition Start: 10/02/22 16:01 Freq: Status: Active Protocol: Document 10/09/22 10:35 AM (Rec: 10/09/22 11:37 AM [id number]) Current Condition History of Current Condition Onset Date End of 2021/early 2022 Current Complaints c/o numbness bilateral toes. History of Current Condition c/o numbness bilateral toes. Denies pain in toes. First noticed this feeling on the left side, but now notices it in R as well. Pt has Raynauds. c/o generally cold feet unless he goes for a walk, then they are warm. Pt had a fall a few months ago. Pt stubbed his toe and fell. Pt reports that he has not noticed instability with numbness in feet. Pt interested in PT for core strength, balance. 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 No new call outs. PT-OP-D Balance Start: 10/02/22 16:01 Freq: Status: Active Protocol: Document 10/03/22 13:33 AM (Rec: 10/03/22 16:00 AM [id number]) OP-PT Balance Assessment Sitting Balance Static Sitting Balance Ability Normal Dynamic Sitting Balance Ability Normal Standing Balance Static Standing Balance Ability Good Dynamic Standing Balance Ability Good Balance Tests Single Limb Standing Single Limb- Right 12 sec Single Limb- Left 4 sec Tandem Tandem Standing 30 sec Bradley Balance Assessment Evaluation Sitting to Standing Ability Independent w/out Hands Unsupported Stance Safely- 2 minutes Sitting Unsupported, Feet on Floor Safely- 2 minutes Standing to Sitting Ability Safely, Minimal Hand Use Transfer Ability Safely, Minimal Hand Use Unsupported Stance- Eyes Closed Safely, 10 seconds Unsupported Stance- Eyes Open Independent, 1 minute Reaching Forward Standing Confidently, 10 inches Pick- Up Object From Floor Independent/Safe Look Behind Shoulder - Standing Shifts Weight Well Turning 360 Degrees Turns Bilateral, < 4 secs Unsupported Stance, Alternating Feet on (I)- 8 Steps in 20 secs Stair Unsupported Tandem Stance Achieves Tandem Unilateral Leg Stance Lifts Leg/Holds 10 secs Total Score Bradley Total Score (out of 56 points) 56 Bradley Impairment Rating 0% Impaired (Score 56) Mckay Fall Scale Copyright Permission PT-OP-E Functional Tests Start: 10/02/22 16:01 Freq: Status: Active Protocol: Document 10/03/22 13:33 AM (Rec: 10/03/22 16:00 AM [id number]) Functional Tests Five Times Sit to Stand Test Score :9.23 Comments cued to not use back of legs against chair PT-OP-G Mobility & Gait Start: 10/02/22 16:01 Freq: Status: Active Protocol: Document 10/03/22 13:33 AM (Rec: 10/03/22 16:00 AM [id number]) OP Gait Assessment Gait Gait Assistance Required: Independent Assistive Devices Assistive Device None Gait Deviations General Gait Pattern Flexed Trunk Factors Limiting Gait Function Factors Limiting Gait Function Decreased Sensation PT-OP-H Neuro Start: 10/02/22 16:01 Freq: Status: Active Protocol: Document 10/03/22 13:33 AM (Rec: 10/03/22 16:00 AM [id number]) Sensation Evaluation Gross Sensation Gross Sensation Left LE Impaired,Right LE Impaired Sensation Description Numbness PT-OP-J Posture/Palpation/Skin Start: 10/02/22 16:01 Freq: Status: Active Protocol: Document 10/03/22 13:33 AM (Rec: 10/03/22 16:00 AM [id number]) Posture Evaluation Position Standing Evaluation View Lateral Head/C-Spine Posture Forward Head T-Spine Posture Increased Kyphosis L-Spine Posture Flattened Shoulder Posture (L) Rounded,(R) Rounded PT-OP-K Range of Motion Start: 10/02/22 16:01 Freq: Status: Active Protocol: Document 10/03/22 13:33 AM (Rec: 10/03/22 16:00 AM [id number]) Lumbar Spine Range of Motion Lumbar Spine Active Percentage Testing Position Standing Flexion 50 Extension 25 Rotation Left 50 Rotation Right 50 Lateral Flexion Left 50 Lateral Flexion Right 50 ROM Limitations Soft Tissue Tightness Comments Flexion Finger-toes: 8 inches from ground R LF:18.5 in L LF: 19.5 in Ext: neutral Knee Goniometric Range of Motion Knee ROM Limitations Knee ROM Limitations Soft Tissue Tightness Comments Hamstring 90/90 R: 32 deg L: 40 deg PT-OP-M Strength Start: 10/02/22 16:01 Freq: Status: Active Protocol: Document 10/03/22 13:33 AM (Rec: 10/03/22 16:00 AM [id number]) Hip Strength Hip Manual Muscle Testing Right Flexion (L2) 4 Good Extension (S1) 4 Good Abduction 4- Good- Adduction 4+ Good+ Left Flexion (L2) 4 Good Extension (S1) 4 Good Abduction 4- Good- Adduction 4+ Good+ Knee Strength Knee Manual Muscle Testing Right Flexion (S2) 4+ Good+ Extension (L3) 4+ Good+ Left Flexion (S2) 4+ Good+ Extension (L3) 4+ Good+ Ankle/Foot Strength Ankle and Foot Manual Muscle Testing Right Dorsiflexion (L4) 5 Normal Plantarflexion (S1) 5 Normal Left Dorsiflexion (L4) 5 Normal Plantarflexion (S1) 5 Normal PT-OP-Q Treatments Start: 10/02/22 16:01 Freq: Status: Active Protocol: Document 10/16/22 09:19 SW (Rec: 10/16/22 10:02 SW [id number]) Cardio Equipment Recumbent Elliptical (Biodex) Duration (Minutes) 5 Resistance 5 Gym Equipment Shuttle Balance Red Details WBOS Blue Details WBOS,NBOS, Staggered Therapeutic Exercises Sidelying Exercises Hip Abd Side bilateral Reps/Minutes x10 Comments cues for form clamshells Sidelying Exercise Name Clamshell Side bilateral Reps/Minutes 2 x 10 Comments Manual cueing at pelvis to decrease rolling Standing Exercises Resisted side steps Standing Exercise Name Resisted side step Side bilateral Resistance [place] TB Reps/Minutes 2x20 ft Manual Therapy Treatment Soft Tissue Mobilization Low back STM Body Location Lumbar paraspinals, QL Mobilization Type Myofascial Release Intensity/Depth Moderate Body Position Prone Neuro Re-Education Treatment Other Activities Resisted ambulation Details Green, Fwd/back/lateral Reps/Duration 5 ea Comments verbal cues for stabilization PT-OP-T Assessment and Plan Start: 10/02/22 16:01 Freq: Status: Active Protocol: Document 10/16/22 09:19 (Rec: 10/16/22 10:02 [id number]) Physical Therapy Assessment Rehab Potential Rehabilitation Potential Good Evaluation Complexity Number of Personal Factors/Comorbidities 1-2 Number of Body Systems Impaired 1-2 Clinical Presentation at Evaluation Stable Impairments Impairments Balance,Coordination, Functional Activities,Posture, ROM,Soft Tissue Mobility, Strength Goals Five Impairment Hip strength Impairment Pt with 4-/5 to 4/5 hip strength. Child Development Consultant Goal (LTG) Pt able to demonstrate 4/5-4+/ 5 hip strength grossly. LTG Duration 4 weeks Four Impairment HEP Impairment Pt not currently participating in HEP. Child Development Consultant Goal (LTG) Pt independent with HEP. LTG Duration 4 weeks Three Impairment Trunk mobility Impairment Pt demonstrates limited trunk mobility in all directions by 50% Fdc Goal (LTG) Pt able to demonstrate 25% improvement in trunk mobility in all directions. LTG Duration 4 weeks Two Impairment Balance Impairment Pt able to maintain balance on R LE for 12 seconds and L for 4 seconds. Short Term Goal (STG) Pt able to maintain balance for 15 seconds on ea LE. STG Duration 10/17/22 Child Development Consultant Goal (LTG) Pt able to maintain balance for 20 seconds ea LE. LTG Duration 4 weeks One Impairment Bilateral foot symptoms Impairment Pt rates foot numbness at 7/10 . Short Term Goal (STG) Pt will report foot numbness rating at 4/10. STG Duration 10/17/22 Fdc Goal (LTG) Pt will report foot numbness rating at 2/10. LTG Duration 4 weeks Progress Towards Goals Progress Towards Goals Progressing Toward Goals Assessment Summary Assessment Pt challenged with addition of shuttle recovery for stabilization, balance, and strengthening. Reproduction of pain with sidestepping today, relieved post ex, no c/o throughout session of change to numbess in feet. Patient highly motivated throughout session, admits to doing exercises but not the specific ones for PT. Physical Therapy Plan Frequency and Duration Frequency of Treatment 2x/Week Duration of treatment (weeks) 4 Plan of Care Start Date 10/03/22 Plan of Care End Date 10/31/22 Therapeutic Interventions Therapeutic Interventions Balance Training,Coordination Training,Gait Training,Home Exercise Program,Joint Mobilizations,Neuromuscular Re -education,Patient/Caregiver Education,Self-Care/Home Management,Soft Tissue Mobilization,Taping, Therapeutic Activities, Therapeutic Exercises Modalities Cold Pack/Ice Massage,Electric Stimulation,Hot Packs, Ultrasound Next Visit Focus/Plan Next Note Type Treatment Note Next Visit Plan Continue to progress balance, progress trunk exercises as tolerated
--- NOTE | 2022-10-21 16:03 | PT.OTN ---
Current Diagnoses Other abnormalities of gait and mobility (10/21/22) History of falling (10/21/22) Physical Therapy Treatment Note PT-OP-A Visit Information Start: 10/02/22 16:01 Freq: Status: Active Protocol: Document 10/21/22 16:03 AM (Rec: 10/21/22 17:08 AM [id number]) Out-Patient Physical Therapy Visit Information Visit Information Visit Type Progress Note Visit Start Time 16:05 Visit Stop Time 16:50 Total Visit Minutes 45 Visit Number 5 Number of MAIL MANAGER Visits 1 PT-OP-B Current Condition Start: 10/02/22 16:01 Freq: Status: Active Protocol: Document 10/21/22 16:03 AM (Rec: 10/21/22 17:08 AM [id number]) Current Condition History of Current Condition Onset Date End of 2021/early 2022 Current Complaints c/o numbness bilateral toes. History of Current Condition c/o numbness bilateral toes. Denies pain in toes. First noticed this feeling on the left side, but now notices it in R as well. Pt has Raynauds. c/o generally cold feet unless he goes for a walk, then they are warm. Pt had a fall a few months ago. Pt stubbed his toe and fell. Pt reports that he has not noticed instability with numbness in feet. Pt interested in PT for core strength, balance. 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 Pt reports that he rarely notices his R foot symptoms. Pt reports that he had recent blood work. Pt reports that he had low hematocrit and RBC. He has not talked to his PCP yet regarding this. PT-OP-D Balance Start: 10/02/22 16:01 Freq: Status: Active Protocol: Document 10/03/22 13:33 AM (Rec: 10/03/22 16:00 AM [id number]) OP-PT Balance Assessment Sitting Balance Static Sitting Balance Ability Normal Dynamic Sitting Balance Ability Normal Standing Balance Static Standing Balance Ability Good Dynamic Standing Balance Ability Good Balance Tests Single Limb Standing Single Limb- Right 12 sec Single Limb- Left 4 sec Tandem Tandem Standing 30 sec Bradley Balance Assessment Evaluation Sitting to Standing Ability Independent w/out Hands Unsupported Stance Safely- 2 minutes Sitting Unsupported, Feet on Floor Safely- 2 minutes Standing to Sitting Ability Safely, Minimal Hand Use Transfer Ability Safely, Minimal Hand Use Unsupported Stance- Eyes Closed Safely, 10 seconds Unsupported Stance- Eyes Open Independent, 1 minute Reaching Forward Standing Confidently, 10 inches Pick- Up Object From Floor Independent/Safe Look Behind Shoulder - Standing Shifts Weight Well Turning 360 Degrees Turns Bilateral, < 4 secs Unsupported Stance, Alternating Feet on (I)- 8 Steps in 20 secs Stair Unsupported Tandem Stance Achieves Tandem Unilateral Leg Stance Lifts Leg/Holds 10 secs Total Score Bradley Total Score (out of 56 points) 56 Bradley Impairment Rating 0% Impaired (Score 56) Mckay Fall Scale Copyright Permission PT-OP-E Functional Tests Start: 10/02/22 16:01 Freq: Status: Active Protocol: Document 10/03/22 13:33 AM (Rec: 10/03/22 16:00 AM [id number]) Functional Tests Five Times Sit to Stand Test Score :9.23 Comments cued to not use back of legs against chair PT-OP-G Mobility & Gait Start: 10/02/22 16:01 Freq: Status: Active Protocol: Document 10/03/22 13:33 AM (Rec: 10/03/22 16:00 AM [id number]) OP Gait Assessment Gait Gait Assistance Required: Independent Assistive Devices Assistive Device None Gait Deviations General Gait Pattern Flexed Trunk Factors Limiting Gait Function Factors Limiting Gait Function Decreased Sensation PT-OP-H Neuro Start: 10/02/22 16:01 Freq: Status: Active Protocol: Document 10/03/22 13:33 AM (Rec: 10/03/22 16:00 AM [id number]) Sensation Evaluation Gross Sensation Gross Sensation Left LE Impaired,Right LE Impaired Sensation Description Numbness PT-OP-J Posture/Palpation/Skin Start: 10/02/22 16:01 Freq: Status: Active Protocol: Document 10/03/22 13:33 AM (Rec: 10/03/22 16:00 AM [id number]) Posture Evaluation Position Standing Evaluation View Lateral Head/C-Spine Posture Forward Head T-Spine Posture Increased Kyphosis L-Spine Posture Flattened Shoulder Posture (L) Rounded,(R) Rounded PT-OP-K Range of Motion Start: 10/02/22 16:01 Freq: Status: Active Protocol: Document 10/03/22 13:33 AM (Rec: 10/03/22 16:00 AM [id number]) Lumbar Spine Range of Motion Lumbar Spine Active Percentage Testing Position Standing Flexion 50 Extension 25 Rotation Left 50 Rotation Right 50 Lateral Flexion Left 50 Lateral Flexion Right 50 ROM Limitations Soft Tissue Tightness Comments Flexion Finger-toes: 8 inches from ground R LF:18.5 in L LF: 19.5 in Ext: neutral Knee Goniometric Range of Motion Knee ROM Limitations Knee ROM Limitations Soft Tissue Tightness Comments Hamstring 90/90 R: 32 deg L: 40 deg PT-OP-M Strength Start: 10/02/22 16:01 Freq: Status: Active Protocol: Document 10/03/22 13:33 AM (Rec: 10/03/22 16:00 AM [id number]) Hip Strength Hip Manual Muscle Testing Right Flexion (L2) 4 Good Extension (S1) 4 Good Abduction 4- Good- Adduction 4+ Good+ Left Flexion (L2) 4 Good Extension (S1) 4 Good Abduction 4- Good- Adduction 4+ Good+ Knee Strength Knee Manual Muscle Testing Right Flexion (S2) 4+ Good+ Extension (L3) 4+ Good+ Left Flexion (S2) 4+ Good+ Extension (L3) 4+ Good+ Ankle/Foot Strength Ankle and Foot Manual Muscle Testing Right Dorsiflexion (L4) 5 Normal Plantarflexion (S1) 5 Normal Left Dorsiflexion (L4) 5 Normal Plantarflexion (S1) 5 Normal PT-OP-Q Treatments Start: 10/02/22 16:01 Freq: Status: Active Protocol: Document 10/21/22 16:03 AM (Rec: 10/21/22 17:08 AM [id number]) Cardio Equipment Recumbent Bicycle Duration (Minutes) 5 Resistance 10 Seat Position 7 Gym Equipment Shuttle Balance Red Details WBOS Blue Details WBOS,NBOS, head turns, EC Therapeutic Exercises Standing Exercises Hip abduction Standing Exercise Name Hip abduction Side bilateral Resistance [place] TB Reps/Minutes 2x10 Resisted side steps Standing Exercise Name Resisted side step Side bilateral Resistance [place] TB Reps/Minutes 2x20 ft Other Exercises Kneeling hip flexor stretch Other Exercise Name Kneeling hip flexor stretch Side bilateral Reps/Minutes x1 min Manual Therapy Treatment Soft Tissue Mobilization Low back STM Body Location Lumbar paraspinals, QL Mobilization Type Myofascial Release Intensity/Depth Moderate Body Position Prone Joint Mobilizations Lumbar P-A Joint L4-S1 Direction P-A Grade III Body Position Prone Neuro Re-Education Treatment Balance Activities SLS Details SLS Surface on even and uneven surface Reps/Duration 2x30 sec ea PT-OP-T Assessment and Plan Start: 10/02/22 16:01 Freq: Status: Active Protocol: Document 10/21/22 16:03 AM (Rec: 10/21/22 17:08 AM [id number]) Physical Therapy Assessment Goals Five Impairment Hip strength Impairment Pt with 4-/5 to 4/5 hip strength. Penitentiary Goal (LTG) Pt able to demonstrate 4/5-4+/ 5 hip strength grossly. LTG Duration 4 weeks Four Impairment HEP Impairment Pt not currently participating in HEP. Manager R D Goal (LTG) Pt independent with HEP. LTG Duration 4 weeks Three Impairment Trunk mobility Impairment Pt demonstrates limited trunk mobility in all directions by 50% Penitentiary Goal (LTG) Pt able to demonstrate 25% improvement in trunk mobility in all directions. LTG Duration 4 weeks Two Impairment Balance Impairment Pt able to maintain balance on R LE for 12 seconds and L for 4 seconds. Short Term Goal (STG) Pt able to maintain balance for 15 seconds on ea LE. GOAL MET on 10/21/22: Pt able to balance for 25 seconds STG Duration 10/17/22 Manager R D Goal (LTG) Pt able to maintain balance for 20 seconds ea LE. GOAL MET on 10/21/22: Pt able to balance for 25 seconds LTG Duration 4 weeks One Impairment Bilateral foot symptoms Impairment Pt rates foot numbness at 7/10 . Short Term Goal (STG) Pt will report foot numbness rating at 4/10. GOAL MET: Pt reports R foot at 0-4/10, L foot at 4-5/10. STG Duration 10/17/22 Penitentiary Goal (LTG) Pt will report foot numbness rating at 2/10. LTG Duration 4 weeks Progress Towards Goals Progress Towards Goals Progressing Toward Goals Progress Comments Pt met 2/2 STG Assessment Summary Assessment Pt demonstrates progress towards goals, meeting 2/2 STG today. Pt demonstrates improved time with SLS, though continues to demonstrate hip drop bilaterally. Pt with reported glute fatigue with side steps and hip abduction standing, though did not report pain today. Pt reporting significant decrease in numbness per ratings dropping from 7/10 to 4-5/10. Pt will return to PT later this week to progress strengthening and balance as tolerated. Physical Therapy Plan Frequency and Duration Frequency of Treatment 2x/Week Duration of treatment (weeks) 4 Plan of Care Start Date 10/03/22 Plan of Care End Date 10/31/22 Therapeutic Interventions Therapeutic Interventions Balance Training,Coordination Training,Gait Training,Home Exercise Program,Joint Mobilizations,Neuromuscular Re -education,Patient/Caregiver Education,Self-Care/Home Management,Soft Tissue Mobilization,Taping, Therapeutic Activities, Therapeutic Exercises Modalities Cold Pack/Ice Massage,Electric Stimulation,Hot Packs, Ultrasound Next Visit Focus/Plan Next Note Type Treatment Note Next Visit Plan Continue to progress balance, progress trunk exercises as tolerated
--- NOTE | 2022-10-23 12:53 | PT.OTN ---
Current Diagnoses Other abnormalities of gait and mobility (10/23/22) History of falling (10/23/22) Physical Therapy Treatment Note PT-OP-A Visit Information Start: 10/02/22 16:01 Freq: Status: Active Protocol: Document 10/23/22 11:49 SW (Rec: 10/23/22 12:52 [id number]) Out-Patient Physical Therapy Visit Information Visit Information Visit Type Treatment Note Visit Start Time 11:45 Visit Stop Time 12:30 Total Visit Minutes 45 Visit Number 6 Number of HEAD BONE GRINDER Visits 1 PT-OP-B Current Condition Start: 10/02/22 16:01 Freq: Status: Active Protocol: Document 10/21/22 16:03 AM (Rec: 10/21/22 17:08 AM [id number]) Current Condition History of Current Condition Onset Date End of 2021/early 2022 Current Complaints c/o numbness bilateral toes. History of Current Condition c/o numbness bilateral toes. Denies pain in toes. First noticed this feeling on the left side, but now notices it in R as well. Pt has Raynauds. c/o generally cold feet unless he goes for a walk, then they are warm. Pt had a fall a few months ago. Pt stubbed his toe and fell. Pt reports that he has not noticed instability with numbness in feet. Pt interested in PT for core strength, balance. 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 PT-OP-D Balance Start: 10/02/22 16:01 Freq: Status: Active Protocol: Document 10/03/22 13:33 AM (Rec: 10/03/22 16:00 AM [id number]) OP-PT Balance Assessment Sitting Balance Static Sitting Balance Ability Normal Dynamic Sitting Balance Ability Normal Standing Balance Static Standing Balance Ability Good Dynamic Standing Balance Ability Good Balance Tests Single Limb Standing Single Limb- Right 12 sec Single Limb- Left 4 sec Tandem Tandem Standing 30 sec Bradley Balance Assessment Evaluation Sitting to Standing Ability Independent w/out Hands Unsupported Stance Safely- 2 minutes Sitting Unsupported, Feet on Floor Safely- 2 minutes Standing to Sitting Ability Safely, Minimal Hand Use Transfer Ability Safely, Minimal Hand Use Unsupported Stance- Eyes Closed Safely, 10 seconds Unsupported Stance- Eyes Open Independent, 1 minute Reaching Forward Standing Confidently, 10 inches Pick- Up Object From Floor Independent/Safe Look Behind Shoulder - Standing Shifts Weight Well Turning 360 Degrees Turns Bilateral, < 4 secs Unsupported Stance, Alternating Feet on (I)- 8 Steps in 20 secs Stair Unsupported Tandem Stance Achieves Tandem Unilateral Leg Stance Lifts Leg/Holds 10 secs Total Score Bradley Total Score (out of 56 points) 56 Bradley Impairment Rating 0% Impaired (Score 56) Mckay Fall Scale Copyright Permission PT-OP-E Functional Tests Start: 10/02/22 16:01 Freq: Status: Active Protocol: Document 10/03/22 13:33 AM (Rec: 10/03/22 16:00 AM [id number]) Functional Tests Five Times Sit to Stand Test Score :9.23 Comments cued to not use back of legs against chair PT-OP-G Mobility & Gait Start: 10/02/22 16:01 Freq: Status: Active Protocol: Document 10/03/22 13:33 AM (Rec: 10/03/22 16:00 AM [id number]) OP Gait Assessment Gait Gait Assistance Required: Independent Assistive Devices Assistive Device None Gait Deviations General Gait Pattern Flexed Trunk Factors Limiting Gait Function Factors Limiting Gait Function Decreased Sensation PT-OP-H Neuro Start: 10/02/22 16:01 Freq: Status: Active Protocol: Document 10/03/22 13:33 AM (Rec: 10/03/22 16:00 AM [id number]) Sensation Evaluation Gross Sensation Gross Sensation Left LE Impaired,Right LE Impaired Sensation Description Numbness PT-OP-J Posture/Palpation/Skin Start: 10/02/22 16:01 Freq: Status: Active Protocol: Document 10/03/22 13:33 AM (Rec: 10/03/22 16:00 AM [id number]) Posture Evaluation Position Standing Evaluation View Lateral Head/C-Spine Posture Forward Head T-Spine Posture Increased Kyphosis L-Spine Posture Flattened Shoulder Posture (L) Rounded,(R) Rounded PT-OP-K Range of Motion Start: 10/02/22 16:01 Freq: Status: Active Protocol: Document 10/03/22 13:33 AM (Rec: 10/03/22 16:00 AM [id number]) Lumbar Spine Range of Motion Lumbar Spine Active Percentage Testing Position Standing Flexion 50 Extension 25 Rotation Left 50 Rotation Right 50 Lateral Flexion Left 50 Lateral Flexion Right 50 ROM Limitations Soft Tissue Tightness Comments Flexion Finger-toes: 8 inches from ground R LF:18.5 in L LF: 19.5 in Ext: neutral Knee Goniometric Range of Motion Knee ROM Limitations Knee ROM Limitations Soft Tissue Tightness Comments Hamstring 90/90 R: 32 deg L: 40 deg PT-OP-M Strength Start: 10/02/22 16:01 Freq: Status: Active Protocol: Document 10/03/22 13:33 AM (Rec: 10/03/22 16:00 AM [id number]) Hip Strength Hip Manual Muscle Testing Right Flexion (L2) 4 Good Extension (S1) 4 Good Abduction 4- Good- Adduction 4+ Good+ Left Flexion (L2) 4 Good Extension (S1) 4 Good Abduction 4- Good- Adduction 4+ Good+ Knee Strength Knee Manual Muscle Testing Right Flexion (S2) 4+ Good+ Extension (L3) 4+ Good+ Left Flexion (S2) 4+ Good+ Extension (L3) 4+ Good+ Ankle/Foot Strength Ankle and Foot Manual Muscle Testing Right Dorsiflexion (L4) 5 Normal Plantarflexion (S1) 5 Normal Left Dorsiflexion (L4) 5 Normal Plantarflexion (S1) 5 Normal PT-OP-Q Treatments Start: 10/02/22 16:01 Freq: Status: Active Protocol: Document 10/23/22 11:49 SW (Rec: 10/23/22 12:52 SW [id number]) Cardio Equipment Recumbent Elliptical (Biodex) Duration (Minutes) 5 Resistance 7 Gym Equipment Shuttle Recovery Unilateral Details Unilateral squats Resistance 50# Shuttle Recovery Platform Stable Reps/Time x10 Bilateral Details Bilateral squats Resistance 75# (3 new) Shuttle Recovery Platform Stable Reps/Time x10 Shuttle Balance Red Details WBOS>NBOS Blue Details Lateral Therapeutic Exercises Standing Exercises Monster Walks Side bilateral Resistance [place] TB Reps/Minutes 2x20 ft Hip abduction Standing Exercise Name Hip abduction Side bilateral Resistance [place] TB Reps/Minutes 2x10 Resisted side steps Standing Exercise Name Resisted side step Side bilateral Resistance [place] TB Reps/Minutes 2x20 ft Manual Therapy Treatment Soft Tissue Mobilization Low back STM Body Location Lumbar paraspinals, QL Mobilization Type Myofascial Release Intensity/Depth Moderate Body Position Prone Neuro Re-Education Treatment Balance Activities SLS Details SLS Surface on even and uneven surface Reps/Duration 2x30 sec ea PT-OP-T Assessment and Plan Start: 10/02/22 16:01 Freq: Status: Active Protocol: Document 10/23/22 11:49 (Rec: 10/23/22 12:52 [id number]) Physical Therapy Assessment Goals Five Impairment Hip strength Impairment Pt with 4-/5 to 4/5 hip strength. [facility] Goal (LTG) Pt able to demonstrate 4/5-4+/ 5 hip strength grossly. LTG Duration 4 weeks Four Impairment HEP Impairment Pt not currently participating in HEP. [facility]iary Goal (LTG) Pt independent with HEP. LTG Duration 4 weeks Three Impairment Trunk mobility Impairment Pt demonstrates limited trunk mobility in all directions by 50% Monitor And Storage Bin Tender Goal (LTG) Pt able to demonstrate 25% improvement in trunk mobility in all directions. LTG Duration 4 weeks Two Impairment Balance Impairment Pt able to maintain balance on R LE for 12 seconds and L for 4 seconds. Short Term Goal (STG) Pt able to maintain balance for 15 seconds on ea LE. GOAL MET on 10/21/22: Pt able to balance for 25 seconds STG Duration 10/17/22 Monitor And Storage Bin Tender Goal (LTG) Pt able to maintain balance for 20 seconds ea LE. GOAL MET on 10/21/22: Pt able to balance for 25 seconds LTG Duration 4 weeks One Impairment Bilateral foot symptoms Impairment Pt rates foot numbness at 7/10 . Short Term Goal (STG) Pt will report foot numbness rating at 4/10. GOAL MET: Pt reports R foot at 0-4/10, L foot at 4-5/10. STG Duration 10/17/22 [facility] Goal (LTG) Pt will report foot numbness rating at 2/10. LTG Duration 4 weeks Assessment Summary Assessment Progressed resistance with strength today, tolerated well min pain reported, no increased symptoms post, but fatigued at end of session with balance. Ended session with STM to LB, pt reports he feels it has been beneficial to his LE numbness. Physical Therapy Plan Frequency and Duration Frequency of Treatment 2x/Week Duration of treatment (weeks) 4 Plan of Care Start Date 10/03/22 Plan of Care End Date 10/31/22 Therapeutic Interventions Therapeutic Interventions Balance Training,Coordination Training,Gait Training,Home Exercise Program,Joint Mobilizations,Neuromuscular Re -education,Patient/Caregiver Education,Self-Care/Home Management,Soft Tissue Mobilization,Taping, Therapeutic Activities, Therapeutic Exercises Modalities Cold Pack/Ice Massage,Electric Stimulation,Hot Packs, Ultrasound Next Visit Focus/Plan Next Note Type Treatment Note Next Visit Plan Continue to progress balance, progress trunk exercises as tolerated
--- NOTE | 2022-10-28 16:05 | PT.OTN ---
Current Diagnoses Other abnormalities of gait and mobility (10/28/22) History of falling (10/28/22) Physical Therapy Treatment Note PT-OP-A Visit Information Start: 10/02/22 16:01 Freq: Status: Active Protocol: Document 10/28/22 16:05 AM (Rec: 10/28/22 17:01 AM [id number]) Out-Patient Physical Therapy Visit Information Visit Information Visit Type Treatment Note Visit Start Time 16:05 Visit Stop Time 16:50 Total Visit Minutes 45 Visit Number 7 Number of WATER RESOURCES ENGINEER Visits 1 PT-OP-B Current Condition Start: 10/02/22 16:01 Freq: Status: Active Protocol: Document 10/21/22 16:03 AM (Rec: 10/21/22 17:08 AM [id number]) Current Condition History of Current Condition Onset Date End of 2021/early 2022 Current Complaints c/o numbness bilateral toes. History of Current Condition c/o numbness bilateral toes. Denies pain in toes. First noticed this feeling on the left side, but now notices it in R as well. Pt has Raynauds. c/o generally cold feet unless he goes for a walk, then they are warm. Pt had a fall a few months ago. Pt stubbed his toe and fell. Pt reports that he has not noticed instability with numbness in feet. Pt interested in PT for core strength, balance. 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 Pt reports that his legs felt fatigued post tx. PT-OP-D Balance Start: 10/02/22 16:01 Freq: Status: Active Protocol: Document 10/03/22 13:33 AM (Rec: 10/03/22 16:00 AM [id number]) OP-PT Balance Assessment Sitting Balance Static Sitting Balance Ability Normal Dynamic Sitting Balance Ability Normal Standing Balance Static Standing Balance Ability Good Dynamic Standing Balance Ability Good Balance Tests Single Limb Standing Single Limb- Right 12 sec Single Limb- Left 4 sec Tandem Tandem Standing 30 sec Bradley Balance Assessment Evaluation Sitting to Standing Ability Independent w/out Hands Unsupported Stance Safely- 2 minutes Sitting Unsupported, Feet on Floor Safely- 2 minutes Standing to Sitting Ability Safely, Minimal Hand Use Transfer Ability Safely, Minimal Hand Use Unsupported Stance- Eyes Closed Safely, 10 seconds Unsupported Stance- Eyes Open Independent, 1 minute Reaching Forward Standing Confidently, 10 inches Pick- Up Object From Floor Independent/Safe Look Behind Shoulder - Standing Shifts Weight Well Turning 360 Degrees Turns Bilateral, < 4 secs Unsupported Stance, Alternating Feet on (I)- 8 Steps in 20 secs Stair Unsupported Tandem Stance Achieves Tandem Unilateral Leg Stance Lifts Leg/Holds 10 secs Total Score Bradley Total Score (out of 56 points) 56 Bradley Impairment Rating 0% Impaired (Score 56) Mckay Fall Scale Copyright Permission PT-OP-E Functional Tests Start: 10/02/22 16:01 Freq: Status: Active Protocol: Document 10/03/22 13:33 AM (Rec: 10/03/22 16:00 AM [id number]) Functional Tests Five Times Sit to Stand Test Score :9.23 Comments cued to not use back of legs against chair PT-OP-G Mobility & Gait Start: 10/02/22 16:01 Freq: Status: Active Protocol: Document 10/03/22 13:33 AM (Rec: 10/03/22 16:00 AM [id number]) OP Gait Assessment Gait Gait Assistance Required: Independent Assistive Devices Assistive Device None Gait Deviations General Gait Pattern Flexed Trunk Factors Limiting Gait Function Factors Limiting Gait Function Decreased Sensation PT-OP-H Neuro Start: 10/02/22 16:01 Freq: Status: Active Protocol: Document 10/03/22 13:33 AM (Rec: 10/03/22 16:00 AM [id number]) Sensation Evaluation Gross Sensation Gross Sensation Left LE Impaired,Right LE Impaired Sensation Description Numbness PT-OP-J Posture/Palpation/Skin Start: 10/02/22 16:01 Freq: Status: Active Protocol: Document 10/03/22 13:33 AM (Rec: 10/03/22 16:00 AM [id number]) Posture Evaluation Position Standing Evaluation View Lateral Head/C-Spine Posture Forward Head T-Spine Posture Increased Kyphosis L-Spine Posture Flattened Shoulder Posture (L) Rounded,(R) Rounded PT-OP-K Range of Motion Start: 10/02/22 16:01 Freq: Status: Active Protocol: Document 10/03/22 13:33 AM (Rec: 10/03/22 16:00 AM [id number]) Lumbar Spine Range of Motion Lumbar Spine Active Percentage Testing Position Standing Flexion 50 Extension 25 Rotation Left 50 Rotation Right 50 Lateral Flexion Left 50 Lateral Flexion Right 50 ROM Limitations Soft Tissue Tightness Comments Flexion Finger-toes: 8 inches from ground R LF:18.5 in L LF: 19.5 in Ext: neutral Knee Goniometric Range of Motion Knee ROM Limitations Knee ROM Limitations Soft Tissue Tightness Comments Hamstring 90/90 R: 32 deg L: 40 deg PT-OP-M Strength Start: 10/02/22 16:01 Freq: Status: Active Protocol: Document 10/03/22 13:33 AM (Rec: 10/03/22 16:00 AM [id number]) Hip Strength Hip Manual Muscle Testing Right Flexion (L2) 4 Good Extension (S1) 4 Good Abduction 4- Good- Adduction 4+ Good+ Left Flexion (L2) 4 Good Extension (S1) 4 Good Abduction 4- Good- Adduction 4+ Good+ Knee Strength Knee Manual Muscle Testing Right Flexion (S2) 4+ Good+ Extension (L3) 4+ Good+ Left Flexion (S2) 4+ Good+ Extension (L3) 4+ Good+ Ankle/Foot Strength Ankle and Foot Manual Muscle Testing Right Dorsiflexion (L4) 5 Normal Plantarflexion (S1) 5 Normal Left Dorsiflexion (L4) 5 Normal Plantarflexion (S1) 5 Normal PT-OP-Q Treatments Start: 10/02/22 16:01 Freq: Status: Active Protocol: Document 10/28/22 16:05 AM (Rec: 10/28/22 17:01 AM [id number]) Cardio Equipment Recumbent Bicycle Duration (Minutes) 5 Resistance 10 Seat Position 7 Gym Equipment Shuttle Recovery Unilateral Details Unilateral squats Resistance 50# Shuttle Recovery Platform Stable Reps/Time x1 min Bilateral Details Bilateral squats Resistance 75# (3 new) Shuttle Recovery Platform Stable Reps/Time x 1 min Therapeutic Exercises Standing Exercises Hip abduction Standing Exercise Name Hip abduction Side bilateral Resistance OTB Reps/Minutes 2x10 Resisted side steps Resistance OTB 2 Standing Exercise Name Hamstring stretch Side bilateral Resistance OTB Reps/Minutes 2x30 sec Manual Therapy Treatment Soft Tissue Mobilization Low back STM Body Location Lumbar paraspinals, QL Mobilization Type Myofascial Release Intensity/Depth Moderate Body Position Prone Joint Mobilizations Lumbar P-A Joint L4-S1 Direction P-A Grade III Body Position Prone PT-OP-T Assessment and Plan Start: 10/02/22 16:01 Freq: Status: Active Protocol: Document 10/28/22 16:05 AM (Rec: 10/28/22 17:01 AM [id number]) Physical Therapy Assessment Goals Five Impairment Hip strength Impairment Pt with 4-/5 to 4/5 hip strength. Hay Buckler Goal (LTG) Pt able to demonstrate 4/5-4+/ 5 hip strength grossly. LTG Duration 10/31/22 Four Impairment HEP Impairment Pt not currently participating in HEP. Hay Buckler Goal (LTG) Pt independent with HEP. LTG Duration 4 weeks Three Impairment Trunk mobility Impairment Pt demonstrates limited trunk mobility in all directions by 50% Hay Buckler Goal (LTG) Pt able to demonstrate 25% improvement in trunk mobility in all directions. LTG Duration 10/31/22 Two Impairment Balance Impairment Pt able to maintain balance on R LE for 12 seconds and L for 4 seconds. Short Term Goal (STG) Pt able to maintain balance for 15 seconds on ea LE. GOAL MET on 10/21/22: Pt able to balance for 25 seconds STG Duration 10/17/22 Correction Goal (LTG) Pt able to maintain balance for 20 seconds ea LE. GOAL MET on 10/21/22: Pt able to balance for 25 seconds LTG Duration 4 weeks One Impairment Bilateral foot symptoms Impairment Pt rates foot numbness at 7/10 . Short Term Goal (STG) Pt will report foot numbness rating at 4/10. GOAL MET: Pt reports R foot at 0-4/10, L foot at 4-5/10. STG Duration 10/17/22 Hay Buckler Goal (LTG) Pt will report foot numbness rating at 2/10. LTG Duration 10/31/22 Assessment Summary Assessment Pt with reported fatigue with hip strengthening today and required cueing for trunk stabilization throughout. Pt with tenderness at R glutes with STM. Pt requires cueing for eccentric control with all LE therex. Pt will return to PT later this week to continue to progress lumbopelvic strength and mobility to decrease LE symtpoms. Physical Therapy Plan Frequency and Duration Frequency of Treatment 2x/Week Duration of treatment (weeks) 4 Plan of Care Start Date 10/03/22 Plan of Care End Date 10/31/22 Therapeutic Interventions Therapeutic Interventions Balance Training,Coordination Training,Gait Training,Home Exercise Program,Joint Mobilizations,Neuromuscular Re -education,Patient/Caregiver Education,Self-Care/Home Management,Soft Tissue Mobilization,Taping, Therapeutic Activities, Therapeutic Exercises Modalities Cold Pack/Ice Massage,Electric Stimulation,Hot Packs, Ultrasound Next Visit Focus/Plan Next Note Type Treatment Note Next Visit Plan Continue to progress balance, progress trunk exercises as tolerated
--- NOTE | 2022-10-30 10:33 | PT.OPPOC ---
Physical, Occupational & Speech Therapy At [facility] Current Diagnoses Other abnormalities of gait and mobility (10/30/22) History of falling (10/30/22) Visit Care Team Role Provider Type DMITRY Matos Attending Provider Advanced Meal Temperer Family Provider Primary Care Provider Referring Provider Specialty: [facility] Address: [address] [place] [address], [facility] Email: [email or web address] Plan Of Care PT-OP-T Assessment and Plan Start: 10/02/22 16:01 Freq: Status: Active Protocol: Document 10/30/22 10:33 AM (Rec: 10/30/22 11:23 AM [id number]) Physical Therapy Assessment Goals Five Impairment Hip strength Impairment Pt with 4-/5 to 4/5 hip strength. Screw Machine Set Up Operator Tool Goal (LTG) Pt able to demonstrate 4/5-4+/ 5 hip strength grossly. LTG Duration 10/31/22 Four Impairment HEP Impairment Pt not currently participating in HEP. [facility] Goal (LTG) Pt independent with HEP. LTG Duration 4 weeks update to 11/28/22 Three Impairment Trunk mobility Impairment Pt demonstrates limited trunk mobility in all directions by 50% [facility] Goal (LTG) Pt able to demonstrate 25% improvement in trunk mobility in all directions. Goal partially met 10/30/22 LTG Duration 10/31/22 update to 11/28/22 Two Impairment Balance Impairment Pt able to maintain balance on R LE for 12 seconds and L for 4 seconds. Short Term Goal (STG) Pt able to maintain balance for 15 seconds on ea LE. GOAL MET on 10/21/22: Pt able to balance for 25 seconds STG Duration 10/17/22 [facility] Goal (LTG) Pt able to maintain balance for 20 seconds ea LE. GOAL MET on 10/21/22: Pt able to balance for 25 seconds LTG Duration 10/31/22 One Impairment Bilateral foot symptoms Impairment Pt rates foot numbness at 7/10 . Short Term Goal (STG) Pt will report foot numbness rating at 4/10. GOAL MET: Pt reports R foot at 0-4/10, L foot at 4-5/10. STG Duration 10/17/22 [facility] Goal (LTG) Pt will report foot numbness rating at 2/10. PROGRESSING: R 0-3/10, L 4-5/ 10 LTG Duration 10/31/22 update to 11/28/22 Progress Towards Goals Progress Towards Goals Progressing Toward Goals Assessment Summary Assessment Pt demonstrates difficulty with trunk stabilization with LE exercises, requiring cueing . Pt with reported significant stiffness with kneeling hip flexor stretch. Pt will return to PT next week to continue to progress glute/trunk strength as tolerated. Physical Therapy Plan Frequency and Duration Frequency of Treatment 2x/Week Duration of treatment (weeks) 8 Plan of Care Start Date 10/03/22 Plan of Care End Date 11/28/22 Therapeutic Interventions Therapeutic Interventions Balance Training,Coordination Training,Gait Training,Home Exercise Program,Joint Mobilizations,Neuromuscular Re -education,Patient/Caregiver Education,Self-Care/Home Management,Soft Tissue Mobilization,Taping, Therapeutic Activities, Therapeutic Exercises Modalities Cold Pack/Ice Massage,Electric Stimulation,Hot Packs, Ultrasound Next Visit Focus/Plan Next Note Type Treatment Note Next Visit Plan Continue to progress balance, progress trunk exercises as tolerated, add to table core exercise. Plan of Care Dates Plan of Care Start Date 10/03/22 Plan of Care End Date 11/28/22 Electronically Signed by: Mita Dailey, PT 10/30/22 [id number] If you are in agreement with this Plan of Care, please return a signed and dated copy. I have reviewed this Plan of Care and certify that the skilled therapy services above are required to meet the patient?s needs. Physician Signature Date Printed Name and Credentials Clinical Instructor Signature Printed Name and Credentials
--- NOTE | 2022-10-30 10:33 | PT.OTN ---
Current Diagnoses Other abnormalities of gait and mobility (10/30/22) History of falling (10/30/22) Physical Therapy Treatment Note PT-OP-A Visit Information Start: 10/02/22 16:01 Freq: Status: Active Protocol: Document 10/30/22 10:33 AM (Rec: 10/30/22 11:23 AM [id number]) Out-Patient Physical Therapy Visit Information Visit Information Visit Type Treatment Note Visit Start Time 10:33 Visit Stop Time 11:16 Total Visit Minutes 43 Visit Number 8 Number of STUNT DRIVER Visits 1 PT-OP-B Current Condition Start: 10/02/22 16:01 Freq: Status: Active Protocol: Document 10/21/22 16:03 AM (Rec: 10/21/22 17:08 AM [id number]) Current Condition History of Current Condition Onset Date End of 2021/early 2022 Current Complaints c/o numbness bilateral toes. History of Current Condition c/o numbness bilateral toes. Denies pain in toes. First noticed this feeling on the left side, but now notices it in R as well. Pt has Raynauds. c/o generally cold feet unless he goes for a walk, then they are warm. Pt had a fall a few months ago. Pt stubbed his toe and fell. Pt reports that he has not noticed instability with numbness in feet. Pt interested in PT for core strength, balance. 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 Patient Reported Progress Improving PT-OP-D Balance Start: 10/02/22 16:01 Freq: Status: Active Protocol: Document 10/03/22 13:33 AM (Rec: 10/03/22 16:00 AM [id number]) OP-PT Balance Assessment Sitting Balance Static Sitting Balance Ability Normal Dynamic Sitting Balance Ability Normal Standing Balance Static Standing Balance Ability Good Dynamic Standing Balance Ability Good Balance Tests Single Limb Standing Single Limb- Right 12 sec Single Limb- Left 4 sec Tandem Tandem Standing 30 sec Bradley Balance Assessment Evaluation Sitting to Standing Ability Independent w/out Hands Unsupported Stance Safely- 2 minutes Sitting Unsupported, Feet on Floor Safely- 2 minutes Standing to Sitting Ability Safely, Minimal Hand Use Transfer Ability Safely, Minimal Hand Use Unsupported Stance- Eyes Closed Safely, 10 seconds Unsupported Stance- Eyes Open Independent, 1 minute Reaching Forward Standing Confidently, 10 inches Pick- Up Object From Floor Independent/Safe Look Behind Shoulder - Standing Shifts Weight Well Turning 360 Degrees Turns Bilateral, < 4 secs Unsupported Stance, Alternating Feet on (I)- 8 Steps in 20 secs Stair Unsupported Tandem Stance Achieves Tandem Unilateral Leg Stance Lifts Leg/Holds 10 secs Total Score Bradley Total Score (out of 56 points) 56 Bradley Impairment Rating 0% Impaired (Score 56) Mckay Fall Scale Copyright Permission PT-OP-E Functional Tests Start: 10/02/22 16:01 Freq: Status: Active Protocol: Document 10/03/22 13:33 AM (Rec: 10/03/22 16:00 AM [id number]) Functional Tests Five Times Sit to Stand Test Score :9.23 Comments cued to not use back of legs against chair PT-OP-G Mobility & Gait Start: 10/02/22 16:01 Freq: Status: Active Protocol: Document 10/03/22 13:33 AM (Rec: 10/03/22 16:00 AM [id number]) OP Gait Assessment Gait Gait Assistance Required: Independent Assistive Devices Assistive Device None Gait Deviations General Gait Pattern Flexed Trunk Factors Limiting Gait Function Factors Limiting Gait Function Decreased Sensation PT-OP-H Neuro Start: 10/02/22 16:01 Freq: Status: Active Protocol: Document 10/03/22 13:33 AM (Rec: 10/03/22 16:00 AM [id number]) Sensation Evaluation Gross Sensation Gross Sensation Left LE Impaired,Right LE Impaired Sensation Description Numbness PT-OP-J Posture/Palpation/Skin Start: 10/02/22 16:01 Freq: Status: Active Protocol: Document 10/03/22 13:33 AM (Rec: 10/03/22 16:00 AM [id number]) Posture Evaluation Position Standing Evaluation View Lateral Head/C-Spine Posture Forward Head T-Spine Posture Increased Kyphosis L-Spine Posture Flattened Shoulder Posture (L) Rounded,(R) Rounded PT-OP-K Range of Motion Start: 10/02/22 16:01 Freq: Status: Active Protocol: Document 10/30/22 10:33 AM (Rec: 10/30/22 11:23 AM [id number]) Lumbar Spine Range of Motion Lumbar Spine Active Percentage Flexion 25 Extension 25 Rotation Left 50 Rotation Right 50 Lateral Flexion Left 50 Lateral Flexion Right 50 Comments Flexion 6.5 in R lat flexion: 19 L lat flexion: 19.5 Ext 20 deg Flex/Ext limited by 25% PT-OP-M Strength Start: 10/02/22 16:01 Freq: Status: Active Protocol: Document 10/03/22 13:33 AM (Rec: 10/03/22 16:00 AM [id number]) Hip Strength Hip Manual Muscle Testing Right Flexion (L2) 4 Good Extension (S1) 4 Good Abduction 4- Good- Adduction 4+ Good+ Left Flexion (L2) 4 Good Extension (S1) 4 Good Abduction 4- Good- Adduction 4+ Good+ Knee Strength Knee Manual Muscle Testing Right Flexion (S2) 4+ Good+ Extension (L3) 4+ Good+ Left Flexion (S2) 4+ Good+ Extension (L3) 4+ Good+ Ankle/Foot Strength Ankle and Foot Manual Muscle Testing Right Dorsiflexion (L4) 5 Normal Plantarflexion (S1) 5 Normal Left Dorsiflexion (L4) 5 Normal Plantarflexion (S1) 5 Normal PT-OP-Q Treatments Start: 10/02/22 16:01 Freq: Status: Active Protocol: Document 10/30/22 10:33 AM (Rec: 10/30/22 11:23 AM [id number]) Cardio Equipment Recumbent Bicycle Duration (Minutes) 5 Resistance 11 Seat Position 7 Therapeutic Exercises Standing Exercises Hip extension Standing Exercise Name Standing hip extension Side bilateral Resistance [place] TB Reps/Minutes 2x10 Hip abduction Standing Exercise Name Hip abduction Side bilateral Resistance OTB Reps/Minutes 2x10 Other Exercises Kneeling hip flexor stretch Other Exercise Name Kneeling hip flexor stretch Side bilateral Reps/Minutes 2x 1 min ea LE Manual Therapy Treatment Soft Tissue Mobilization Low back STM Body Location Lumbar paraspinals, QL Mobilization Type Myofascial Release Intensity/Depth Moderate Body Position Prone Joint Mobilizations Lumbar P-A Joint L4-S1 Direction P-A Grade III Body Position Prone PT-OP-T Assessment and Plan Start: 10/02/22 16:01 Freq: Status: Active Protocol: Document 10/30/22 10:33 AM (Rec: 10/30/22 11:23 AM [id number]) Physical Therapy Assessment Goals Five Impairment Hip strength Impairment Pt with 4-/5 to 4/5 hip strength. Radio Station Manager Goal (LTG) Pt able to demonstrate 4/5-4+/ 5 hip strength grossly. LTG Duration 10/31/22 Four Impairment HEP Impairment Pt not currently participating in HEP. Nursing Home Goal (LTG) Pt independent with HEP. LTG Duration 4 weeks update to 11/28/22 Three Impairment Trunk mobility Impairment Pt demonstrates limited trunk mobility in all directions by 50% Nursing Home Goal (LTG) Pt able to demonstrate 25% improvement in trunk mobility in all directions. Goal partially met 10/30/22 LTG Duration 10/31/22 update to 11/28/22 Two Impairment Balance Impairment Pt able to maintain balance on R LE for 12 seconds and L for 4 seconds. Short Term Goal (STG) Pt able to maintain balance for 15 seconds on ea LE. GOAL MET on 10/21/22: Pt able to balance for 25 seconds STG Duration 10/17/22 Radio Station Manager Goal (LTG) Pt able to maintain balance for 20 seconds ea LE. GOAL MET on 10/21/22: Pt able to balance for 25 seconds LTG Duration 10/31/22 One Impairment Bilateral foot symptoms Impairment Pt rates foot numbness at 7/10 . Short Term Goal (STG) Pt will report foot numbness rating at 4/10. GOAL MET: Pt reports R foot at 0-4/10, L foot at 4-5/10. STG Duration 10/17/22 Radio Station Manager Goal (LTG) Pt will report foot numbness rating at 2/10. PROGRESSING: R 0-3/10, L 4-5/ 10 LTG Duration 10/31/22 update to 11/28/22 Progress Towards Goals Progress Towards Goals Progressing Toward Goals Assessment Summary Assessment Pt demonstrates difficulty with trunk stabilization with LE exercises, requiring cueing . Pt with reported significant stiffness with kneeling hip flexor stretch. Pt will return to PT next week to continue to progress glute/trunk strength as tolerated. Physical Therapy Plan Frequency and Duration Frequency of Treatment 2x/Week Duration of treatment (weeks) 8 Plan of Care Start Date 10/03/22 Plan of Care End Date 11/28/22 Therapeutic Interventions Therapeutic Interventions Balance Training,Coordination Training,Gait Training,Home Exercise Program,Joint Mobilizations,Neuromuscular Re -education,Patient/Caregiver Education,Self-Care/Home Management,Soft Tissue Mobilization,Taping, Therapeutic Activities, Therapeutic Exercises Modalities Cold Pack/Ice Massage,Electric Stimulation,Hot Packs, Ultrasound Next Visit Focus/Plan Next Note Type Treatment Note Next Visit Plan Continue to progress balance, progress trunk exercises as tolerated, add to table core exercise.
--- NOTE | 2022-11-04 11:30 | PT.OTN ---
Current Diagnoses Other abnormalities of gait and mobility (11/04/22) History of falling (11/04/22) Physical Therapy Treatment Note PT-OP-A Visit Information Start: 10/02/22 16:01 Freq: Status: Active Protocol: Document 11/04/22 11:30 AM (Rec: 11/04/22 12:16 AM [id number]) Out-Patient Physical Therapy Visit Information Visit Information Visit Type Treatment Note Visit Start Time 11:33 Visit Stop Time 12:15 Total Visit Minutes 42 Visit Number 9 Number of TRAVEL RN OR Visits 1 PT-OP-B Current Condition Start: 10/02/22 16:01 Freq: Status: Active Protocol: Document 10/21/22 16:03 AM (Rec: 10/21/22 17:08 AM [id number]) Current Condition History of Current Condition Onset Date End of 2021/early 2022 Current Complaints c/o numbness bilateral toes. History of Current Condition c/o numbness bilateral toes. Denies pain in toes. First noticed this feeling on the left side, but now notices it in R as well. Pt has Raynauds. c/o generally cold feet unless he goes for a walk, then they are warm. Pt had a fall a few months ago. Pt stubbed his toe and fell. Pt reports that he has not noticed instability with numbness in feet. Pt interested in PT for core strength, balance. 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 Pt reports that he has been under more stress lately and feels that might make symtoms more noticeable. PT-OP-D Balance Start: 10/02/22 16:01 Freq: Status: Active Protocol: Document 10/03/22 13:33 AM (Rec: 10/03/22 16:00 AM [id number]) OP-PT Balance Assessment Sitting Balance Static Sitting Balance Ability Normal Dynamic Sitting Balance Ability Normal Standing Balance Static Standing Balance Ability Good Dynamic Standing Balance Ability Good Balance Tests Single Limb Standing Single Limb- Right 12 sec Single Limb- Left 4 sec Tandem Tandem Standing 30 sec Bradley Balance Assessment Evaluation Sitting to Standing Ability Independent w/out Hands Unsupported Stance Safely- 2 minutes Sitting Unsupported, Feet on Floor Safely- 2 minutes Standing to Sitting Ability Safely, Minimal Hand Use Transfer Ability Safely, Minimal Hand Use Unsupported Stance- Eyes Closed Safely, 10 seconds Unsupported Stance- Eyes Open Independent, 1 minute Reaching Forward Standing Confidently, 10 inches Pick- Up Object From Floor Independent/Safe Look Behind Shoulder - Standing Shifts Weight Well Turning 360 Degrees Turns Bilateral, < 4 secs Unsupported Stance, Alternating Feet on (I)- 8 Steps in 20 secs Stair Unsupported Tandem Stance Achieves Tandem Unilateral Leg Stance Lifts Leg/Holds 10 secs Total Score Bradley Total Score (out of 56 points) 56 Bradley Impairment Rating 0% Impaired (Score 56) Mckay Fall Scale Copyright Permission PT-OP-E Functional Tests Start: 10/02/22 16:01 Freq: Status: Active Protocol: Document 10/03/22 13:33 AM (Rec: 10/03/22 16:00 AM [id number]) Functional Tests Five Times Sit to Stand Test Score :9.23 Comments cued to not use back of legs against chair PT-OP-G Mobility & Gait Start: 10/02/22 16:01 Freq: Status: Active Protocol: Document 10/03/22 13:33 AM (Rec: 10/03/22 16:00 AM [id number]) OP Gait Assessment Gait Gait Assistance Required: Independent Assistive Devices Assistive Device None Gait Deviations General Gait Pattern Flexed Trunk Factors Limiting Gait Function Factors Limiting Gait Function Decreased Sensation PT-OP-H Neuro Start: 10/02/22 16:01 Freq: Status: Active Protocol: Document 10/03/22 13:33 AM (Rec: 10/03/22 16:00 AM [id number]) Sensation Evaluation Gross Sensation Gross Sensation Left LE Impaired,Right LE Impaired Sensation Description Numbness PT-OP-J Posture/Palpation/Skin Start: 10/02/22 16:01 Freq: Status: Active Protocol: Document 10/03/22 13:33 AM (Rec: 10/03/22 16:00 AM [id number]) Posture Evaluation Position Standing Evaluation View Lateral Head/C-Spine Posture Forward Head T-Spine Posture Increased Kyphosis L-Spine Posture Flattened Shoulder Posture (L) Rounded,(R) Rounded PT-OP-K Range of Motion Start: 10/02/22 16:01 Freq: Status: Active Protocol: Document 10/30/22 10:33 AM (Rec: 10/30/22 11:23 AM [id number]) Lumbar Spine Range of Motion Lumbar Spine Active Percentage Flexion 25 Extension 25 Rotation Left 50 Rotation Right 50 Lateral Flexion Left 50 Lateral Flexion Right 50 Comments Flexion 6.5 in R lat flexion: 19 L lat flexion: 19.5 Ext 20 deg Flex/Ext limited by 25% PT-OP-M Strength Start: 10/02/22 16:01 Freq: Status: Active Protocol: Document 10/03/22 13:33 AM (Rec: 10/03/22 16:00 AM [id number]) Hip Strength Hip Manual Muscle Testing Right Flexion (L2) 4 Good Extension (S1) 4 Good Abduction 4- Good- Adduction 4+ Good+ Left Flexion (L2) 4 Good Extension (S1) 4 Good Abduction 4- Good- Adduction 4+ Good+ Knee Strength Knee Manual Muscle Testing Right Flexion (S2) 4+ Good+ Extension (L3) 4+ Good+ Left Flexion (S2) 4+ Good+ Extension (L3) 4+ Good+ Ankle/Foot Strength Ankle and Foot Manual Muscle Testing Right Dorsiflexion (L4) 5 Normal Plantarflexion (S1) 5 Normal Left Dorsiflexion (L4) 5 Normal Plantarflexion (S1) 5 Normal PT-OP-Q Treatments Start: 10/02/22 16:01 Freq: Status: Active Protocol: Document 11/04/22 11:30 AM (Rec: 11/04/22 12:16 AM [id number]) Cardio Equipment Recumbent Bicycle Duration (Minutes) 5 Resistance 11 Seat Position 7 Therapeutic Exercises Supine Exercises [place] low abdominal Supine Exercise Name [place] lower abdominal Side bilateral Reps/Minutes x10 BKFO Supine Exercise Name BKFO Side bilateral Reps/Minutes x10 1 Supine Exercise Name LTR Side bilateral Reps/Minutes x1 min Sidelying Exercises clamshells Sidelying Exercise Name Clamshells Side bilateral Reps/Minutes x20 Standing Exercises Hip extension Standing Exercise Name Standing hip extension Side bilateral Resistance [place] TB Reps/Minutes 2x10 Hip abduction Standing Exercise Name Hip abduction Side bilateral Resistance [place] TB Reps/Minutes 2x10 Other Exercises Kneeling hip flexor stretch Other Exercise Name Kneeling hip flexor stretch Side bilateral Reps/Minutes 2x 1 min ea LE Manual Therapy Treatment Soft Tissue Mobilization Low back STM Body Location Lumbar paraspinals, QL Mobilization Type Myofascial Release Intensity/Depth Moderate Body Position Prone PT-OP-T Assessment and Plan Start: 10/02/22 16:01 Freq: Status: Active Protocol: Document 11/04/22 11:30 AM (Rec: 11/04/22 12:16 AM [id number]) Physical Therapy Assessment Goals Five Impairment Hip strength Impairment Pt with 4-/5 to 4/5 hip strength. Risk Lead Goal (LTG) Pt able to demonstrate 4/5-4+/ 5 hip strength grossly. LTG Duration 10/31/22 Four Impairment HEP Impairment Pt not currently participating in HEP. Risk Lead Goal (LTG) Pt independent with HEP. LTG Duration 4 weeks update to 11/28/22 Three Impairment Trunk mobility Impairment Pt demonstrates limited trunk mobility in all directions by 50% Risk Lead Goal (LTG) Pt able to demonstrate 25% improvement in trunk mobility in all directions. Goal partially met 10/30/22 LTG Duration 10/31/22 update to 11/28/22 Two Impairment Balance Impairment Pt able to maintain balance on R LE for 12 seconds and L for 4 seconds. Short Term Goal (STG) Pt able to maintain balance for 15 seconds on ea LE. GOAL MET on 10/21/22: Pt able to balance for 25 seconds STG Duration 10/17/22 Fdc Goal (LTG) Pt able to maintain balance for 20 seconds ea LE. GOAL MET on 10/21/22: Pt able to balance for 25 seconds LTG Duration 10/31/22 One Impairment Bilateral foot symptoms Impairment Pt rates foot numbness at 7/10 . Short Term Goal (STG) Pt will report foot numbness rating at 4/10. GOAL MET: Pt reports R foot at 0-4/10, L foot at 4-5/10. STG Duration 10/17/22 Risk Lead Goal (LTG) Pt will report foot numbness rating at 2/10. PROGRESSING: R 0-3/10, L 4-5/ 10 LTG Duration 10/31/22 update to 11/28/22 Assessment Summary Assessment Pt challenged with pelvic control during exercises, requiring cueing. Pt demonstrates continued stiffness at hip flexors with stretching. Pt demonstrates tenderness along glutes bilaterally. Pt will return to PT later this week to progress trunk strength and LE mobility as tolerated. Physical Therapy Plan Frequency and Duration Frequency of Treatment 2x/Week Duration of treatment (weeks) 8 Plan of Care Start Date 10/03/22 Plan of Care End Date 11/28/22 Therapeutic Interventions Therapeutic Interventions Balance Training,Coordination Training,Gait Training,Home Exercise Program,Joint Mobilizations,Neuromuscular Re -education,Patient/Caregiver Education,Self-Care/Home Management,Soft Tissue Mobilization,Taping, Therapeutic Activities, Therapeutic Exercises Modalities Cold Pack/Ice Massage,Electric Stimulation,Hot Packs, Ultrasound Next Visit Focus/Plan Next Note Type Treatment Note Next Visit Plan Continue to progress balance, progress trunk exercises as tolerated, add to table core exercise.
--- NOTE | 2022-11-06 17:21 | PT.OTN ---
Current Diagnoses Other abnormalities of gait and mobility (11/06/22) History of falling (11/06/22) Physical Therapy Treatment Note PT-OP-A Visit Information Start: 10/02/22 16:01 Freq: Status: Active Protocol: Document 11/06/22 15:33 SW (Rec: 11/06/22 17:20 [id number]) Out-Patient Physical Therapy Visit Information Visit Information Visit Type Treatment Note Visit Start Time 15:33 Visit Stop Time 16:16 Total Visit Minutes 43 Visit Number 10 Number of STOCK HANGER Visits 1 PT-OP-B Current Condition Start: 10/02/22 16:01 Freq: Status: Active Protocol: Document 10/21/22 16:03 AM (Rec: 10/21/22 17:08 AM [id number]) Current Condition History of Current Condition Onset Date End of 2021/early 2022 Current Complaints c/o numbness bilateral toes. History of Current Condition c/o numbness bilateral toes. Denies pain in toes. First noticed this feeling on the left side, but now notices it in R as well. Pt has Raynauds. c/o generally cold feet unless he goes for a walk, then they are warm. Pt had a fall a few months ago. Pt stubbed his toe and fell. Pt reports that he has not noticed instability with numbness in feet. Pt interested in PT for core strength, balance. 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 PT-OP-D Balance Start: 10/02/22 16:01 Freq: Status: Active Protocol: Document 10/03/22 13:33 AM (Rec: 10/03/22 16:00 AM [id number]) OP-PT Balance Assessment Sitting Balance Static Sitting Balance Ability Normal Dynamic Sitting Balance Ability Normal Standing Balance Static Standing Balance Ability Good Dynamic Standing Balance Ability Good Balance Tests Single Limb Standing Single Limb- Right 12 sec Single Limb- Left 4 sec Tandem Tandem Standing 30 sec Bradley Balance Assessment Evaluation Sitting to Standing Ability Independent w/out Hands Unsupported Stance Safely- 2 minutes Sitting Unsupported, Feet on Floor Safely- 2 minutes Standing to Sitting Ability Safely, Minimal Hand Use Transfer Ability Safely, Minimal Hand Use Unsupported Stance- Eyes Closed Safely, 10 seconds Unsupported Stance- Eyes Open Independent, 1 minute Reaching Forward Standing Confidently, 10 inches Pick- Up Object From Floor Independent/Safe Look Behind Shoulder - Standing Shifts Weight Well Turning 360 Degrees Turns Bilateral, < 4 secs Unsupported Stance, Alternating Feet on (I)- 8 Steps in 20 secs Stair Unsupported Tandem Stance Achieves Tandem Unilateral Leg Stance Lifts Leg/Holds 10 secs Total Score Bradley Total Score (out of 56 points) 56 Bradley Impairment Rating 0% Impaired (Score 56) Mckay Fall Scale Copyright Permission PT-OP-E Functional Tests Start: 10/02/22 16:01 Freq: Status: Active Protocol: Document 10/03/22 13:33 AM (Rec: 10/03/22 16:00 AM [id number]) Functional Tests Five Times Sit to Stand Test Score :9.23 Comments cued to not use back of legs against chair PT-OP-G Mobility & Gait Start: 10/02/22 16:01 Freq: Status: Active Protocol: Document 10/03/22 13:33 AM (Rec: 10/03/22 16:00 AM [id number]) OP Gait Assessment Gait Gait Assistance Required: Independent Assistive Devices Assistive Device None Gait Deviations General Gait Pattern Flexed Trunk Factors Limiting Gait Function Factors Limiting Gait Function Decreased Sensation PT-OP-H Neuro Start: 10/02/22 16:01 Freq: Status: Active Protocol: Document 10/03/22 13:33 AM (Rec: 10/03/22 16:00 AM [id number]) Sensation Evaluation Gross Sensation Gross Sensation Left LE Impaired,Right LE Impaired Sensation Description Numbness PT-OP-J Posture/Palpation/Skin Start: 10/02/22 16:01 Freq: Status: Active Protocol: Document 10/03/22 13:33 AM (Rec: 10/03/22 16:00 AM [id number]) Posture Evaluation Position Standing Evaluation View Lateral Head/C-Spine Posture Forward Head T-Spine Posture Increased Kyphosis L-Spine Posture Flattened Shoulder Posture (L) Rounded,(R) Rounded PT-OP-K Range of Motion Start: 10/02/22 16:01 Freq: Status: Active Protocol: Document 10/30/22 10:33 AM (Rec: 10/30/22 11:23 AM [id number]) Lumbar Spine Range of Motion Lumbar Spine Active Percentage Flexion 25 Extension 25 Rotation Left 50 Rotation Right 50 Lateral Flexion Left 50 Lateral Flexion Right 50 Comments Flexion 6.5 in R lat flexion: 19 L lat flexion: 19.5 Ext 20 deg Flex/Ext limited by 25% PT-OP-M Strength Start: 10/02/22 16:01 Freq: Status: Active Protocol: Document 10/03/22 13:33 AM (Rec: 10/03/22 16:00 AM [id number]) Hip Strength Hip Manual Muscle Testing Right Flexion (L2) 4 Good Extension (S1) 4 Good Abduction 4- Good- Adduction 4+ Good+ Left Flexion (L2) 4 Good Extension (S1) 4 Good Abduction 4- Good- Adduction 4+ Good+ Knee Strength Knee Manual Muscle Testing Right Flexion (S2) 4+ Good+ Extension (L3) 4+ Good+ Left Flexion (S2) 4+ Good+ Extension (L3) 4+ Good+ Ankle/Foot Strength Ankle and Foot Manual Muscle Testing Right Dorsiflexion (L4) 5 Normal Plantarflexion (S1) 5 Normal Left Dorsiflexion (L4) 5 Normal Plantarflexion (S1) 5 Normal PT-OP-Q Treatments Start: 10/02/22 16:01 Freq: Status: Active Protocol: Document 11/06/22 15:33 SW (Rec: 11/06/22 17:20 SW [id number]) Cardio Equipment Recumbent Bicycle Duration (Minutes) 5 Resistance 11 Seat Position 7 Gym Equipment Shuttle Recovery Unilateral Details Unilateral squats Resistance 50# Shuttle Recovery Platform Stable Reps/Time x1 min Bilateral Details Bilateral squats Resistance 75# (3 teal) Shuttle Recovery Platform Stable Reps/Time x 1 min Shuttle Balance Red Details WBOS>NBOS Therapeutic Exercises Supine Exercises Sahrmann low abdominal Supine Exercise Name Sahrmann lower abdominal Side bilateral Reps/Minutes x10 BKFO Supine Exercise Name BKFO Side bilateral Reps/Minutes x10 1 Supine Exercise Name LTR Side bilateral Reps/Minutes x1 min Standing Exercises Hip extension Standing Exercise Name Standing hip extension Side bilateral Resistance [place] TB, x5 w/2 lb weight Reps/Minutes 2x10 Comments extended time for education Hip abduction Standing Exercise Name Hip abduction Side bilateral Resistance [place] TB, x5 w/2lb weight Reps/Minutes 2x10 Comments extended time for education Resisted side steps Resistance OTB Neuro Re-Education Treatment Balance Activities BOSU balance Details Bosu Lunges Surface unstable Equipment rails Reps/Duration x 10 PT-OP-T Assessment and Plan Start: 10/02/22 16:01 Freq: Status: Active Protocol: Document 11/06/22 15:33 SW (Rec: 11/06/22 17:20 SW [id number]) Physical Therapy Assessment Goals Five Impairment Hip strength Impairment Pt with 4-/5 to 4/5 hip strength. Skilled Nursing Goal (LTG) Pt able to demonstrate 4/5-4+/ 5 hip strength grossly. LTG Duration 10/31/22 Four Impairment HEP Impairment Pt not currently participating in HEP. Cut Out Worker Goal (LTG) Pt independent with HEP. LTG Duration 4 weeks update to 11/28/22 Three Impairment Trunk mobility Impairment Pt demonstrates limited trunk mobility in all directions by 50% Skilled Nursing Goal (LTG) Pt able to demonstrate 25% improvement in trunk mobility in all directions. Goal partially met 10/30/22 LTG Duration 10/31/22 update to 11/28/22 Two Impairment Balance Impairment Pt able to maintain balance on R LE for 12 seconds and L for 4 seconds. Short Term Goal (STG) Pt able to maintain balance for 15 seconds on ea LE. GOAL MET on 10/21/22: Pt able to balance for 25 seconds STG Duration 10/17/22 Cut Out Worker Goal (LTG) Pt able to maintain balance for 20 seconds ea LE. GOAL MET on 10/21/22: Pt able to balance for 25 seconds LTG Duration 10/31/22 One Impairment Bilateral foot symptoms Impairment Pt rates foot numbness at 7/10 . Short Term Goal (STG) Pt will report foot numbness rating at 4/10. GOAL MET: Pt reports R foot at 0-4/10, L foot at 4-5/10. STG Duration 10/17/22 Skilled Nursing Goal (LTG) Pt will report foot numbness rating at 2/10. PROGRESSING: R 0-3/10, L 4-5/ 10 LTG Duration 10/31/22 update to 11/28/22 Assessment Summary Assessment Per discussion with pt and pt request, balance exercises executed prior to finishing strengthening ex this session d/t mm fatigue, improved tolerance to balance. Pt expressed interest in ankle weights for home use, reviewed standing strengthening exercises with ankle weight. Next session, PT to discuss authorizations for more visits per pt request. Physical Therapy Plan Frequency and Duration Frequency of Treatment 2x/Week Duration of treatment (weeks) 8 Plan of Care Start Date 10/03/22 Plan of Care End Date 11/28/22 Therapeutic Interventions Therapeutic Interventions Balance Training,Coordination Training,Gait Training,Home Exercise Program,Joint Mobilizations,Neuromuscular Re -education,Patient/Caregiver Education,Self-Care/Home Management,Soft Tissue Mobilization,Taping, Therapeutic Activities, Therapeutic Exercises Modalities Cold Pack/Ice Massage,Electric Stimulation,Hot Packs, Ultrasound Next Visit Focus/Plan Next Note Type Treatment Note Next Visit Plan Continue to progress balance, progress trunk exercises as tolerated, add to table core exercise.
--- NOTE | 2022-11-10 09:02 | PT.OTN ---
Current Diagnoses Other abnormalities of gait and mobility (11/10/22) History of falling (11/10/22) Physical Therapy Treatment Note PT-OP-A Visit Information Start: 10/02/22 16:01 Freq: Status: Active Protocol: Document 11/10/22 09:02 AM (Rec: 11/10/22 09:49 AM [id number]) Out-Patient Physical Therapy Visit Information Visit Information Visit Type Treatment Note Visit Start Time 09:02 Visit Stop Time 09:45 Total Visit Minutes 43 Visit Number 11 Number of TELESALES ADVISOR Visits 2 PT-OP-B Current Condition Start: 10/02/22 16:01 Freq: Status: Active Protocol: Document 10/21/22 16:03 AM (Rec: 10/21/22 17:08 AM [id number]) Current Condition History of Current Condition Onset Date End of 2021/early 2022 Current Complaints c/o numbness bilateral toes. History of Current Condition c/o numbness bilateral toes. Denies pain in toes. First noticed this feeling on the left side, but now notices it in R as well. Pt has Raynauds. c/o generally cold feet unless he goes for a walk, then they are warm. Pt had a fall a few months ago. Pt stubbed his toe and fell. Pt reports that he has not noticed instability with numbness in feet. Pt interested in PT for core strength, balance. Prior Treatments and Tests EMG Results: Bilateral S1 spinal nerve lesions affecting the anterior and posterior primary rami asmantha, ongoing denervation in bilatearl MG/ glut max/lower lumbosacral paraspinal muscles; Right L5 spinal nerve lesion affecting R TA/FHL/lower lumbosavral paraspinal muscles; Left chronic L5 spinal nerve lesion PT-OP-C Subjective Start: 10/02/22 16:01 Freq: Status: Active Protocol: Document 11/10/22 09:02 AM (Rec: 11/10/22 09:49 AM [id number]) OP-PT Subjective Patient Comments Patient Comments Pt reports that his R foot is not numb today and L is slightly numb. PT-OP-D Balance Start: 10/02/22 16:01 Freq: Status: Active Protocol: Document 10/03/22 13:33 AM (Rec: 10/03/22 16:00 AM [id number]) OP-PT Balance Assessment Sitting Balance Static Sitting Balance Ability Normal Dynamic Sitting Balance Ability Normal Standing Balance Static Standing Balance Ability Good Dynamic Standing Balance Ability Good Balance Tests Single Limb Standing Single Limb- Right 12 sec Single Limb- Left 4 sec Tandem Tandem Standing 30 sec Bradley Balance Assessment Evaluation Sitting to Standing Ability Independent w/out Hands Unsupported Stance Safely- 2 minutes Sitting Unsupported, Feet on Floor Safely- 2 minutes Standing to Sitting Ability Safely, Minimal Hand Use Transfer Ability Safely, Minimal Hand Use Unsupported Stance- Eyes Closed Safely, 10 seconds Unsupported Stance- Eyes Open Independent, 1 minute Reaching Forward Standing Confidently, 10 inches Pick- Up Object From Floor Independent/Safe Look Behind Shoulder - Standing Shifts Weight Well Turning 360 Degrees Turns Bilateral, < 4 secs Unsupported Stance, Alternating Feet on (I)- 8 Steps in 20 secs Stair Unsupported Tandem Stance Achieves Tandem Unilateral Leg Stance Lifts Leg/Holds 10 secs Total Score Bradley Total Score (out of 56 points) 56 Bradley Impairment Rating 0% Impaired (Score 56) Mckay Fall Scale Copyright Permission PT-OP-E Functional Tests Start: 10/02/22 16:01 Freq: Status: Active Protocol: Document 10/03/22 13:33 AM (Rec: 10/03/22 16:00 AM [id number]) Functional Tests Five Times Sit to Stand Test Score :9.23 Comments cued to not use back of legs against chair PT-OP-G Mobility & Gait Start: 10/02/22 16:01 Freq: Status: Active Protocol: Document 10/03/22 13:33 AM (Rec: 10/03/22 16:00 AM [id number]) OP Gait Assessment Gait Gait Assistance Required: Independent Assistive Devices Assistive Device None Gait Deviations General Gait Pattern Flexed Trunk Factors Limiting Gait Function Factors Limiting Gait Function Decreased Sensation PT-OP-H Neuro Start: 10/02/22 16:01 Freq: Status: Active Protocol: Document 10/03/22 13:33 AM (Rec: 10/03/22 16:00 AM [id number]) Sensation Evaluation Gross Sensation Gross Sensation Left LE Impaired,Right LE Impaired Sensation Description Numbness PT-OP-J Posture/Palpation/Skin Start: 10/02/22 16:01 Freq: Status: Active Protocol: Document 10/03/22 13:33 AM (Rec: 10/03/22 16:00 AM [id number]) Posture Evaluation Position Standing Evaluation View Lateral Head/C-Spine Posture Forward Head T-Spine Posture Increased Kyphosis L-Spine Posture Flattened Shoulder Posture (L) Rounded,(R) Rounded PT-OP-K Range of Motion Start: 10/02/22 16:01 Freq: Status: Active Protocol: Document 10/30/22 10:33 AM (Rec: 10/30/22 11:23 AM [id number]) Lumbar Spine Range of Motion Lumbar Spine Active Percentage Flexion 25 Extension 25 Rotation Left 50 Rotation Right 50 Lateral Flexion Left 50 Lateral Flexion Right 50 Comments Flexion 6.5 in R lat flexion: 19 L lat flexion: 19.5 Ext 20 deg Flex/Ext limited by 25% PT-OP-M Strength Start: 10/02/22 16:01 Freq: Status: Active Protocol: Document 10/03/22 13:33 AM (Rec: 10/03/22 16:00 AM [id number]) Hip Strength Hip Manual Muscle Testing Right Flexion (L2) 4 Good Extension (S1) 4 Good Abduction 4- Good- Adduction 4+ Good+ Left Flexion (L2) 4 Good Extension (S1) 4 Good Abduction 4- Good- Adduction 4+ Good+ Knee Strength Knee Manual Muscle Testing Right Flexion (S2) 4+ Good+ Extension (L3) 4+ Good+ Left Flexion (S2) 4+ Good+ Extension (L3) 4+ Good+ Ankle/Foot Strength Ankle and Foot Manual Muscle Testing Right Dorsiflexion (L4) 5 Normal Plantarflexion (S1) 5 Normal Left Dorsiflexion (L4) 5 Normal Plantarflexion (S1) 5 Normal PT-OP-Q Treatments Start: 10/02/22 16:01 Freq: Status: Active Protocol: Document 11/10/22 09:02 AM (Rec: 11/10/22 09:49 AM [id number]) Cardio Equipment Recumbent Bicycle Duration (Minutes) 5 Resistance 11 Seat Position 7 Gym Equipment Shuttle Recovery Unilateral Details Unilateral squats Resistance 50# Shuttle Recovery Platform Stable Reps/Time x1 min Bilateral Details Bilateral squats Resistance 75# (3 teal) Shuttle Recovery Platform Stable Reps/Time x 1 min Therapeutic Exercises Sidelying Exercises Hip Abd Sidelying Exercise Name AAROM Side bilateral Reps/Minutes x15 Comments AAROM to prevent hip flexor involvement clamshells Sidelying Exercise Name Clamshells Side bilateral Resistance 5# Reps/Minutes x20 Standing Exercises Hip extension Standing Exercise Name Standing hip extension Side bilateral Resistance OTB Reps/Minutes 2x10 Hip abduction Standing Exercise Name Hip abduction Side bilateral Resistance orange Reps/Minutes 2x10 Resisted side steps Resistance OTB Other Exercises Kneeling hip flexor stretch Other Exercise Name Kneeling hip flexor stretch Side bilateral Reps/Minutes 2x 1 min ea LE Neuro Re-Education Treatment Balance Activities SLS Details On blue foam Reps/Duration 2x30 sec BOSU balance Details Bosu balance, Bosu step ups, BOSU squats Surface unstable Equipment // bars PT-OP-T Assessment and Plan Start: 10/02/22 16:01 Freq: Status: Active Protocol: Document 11/10/22 09:02 AM (Rec: 11/10/22 09:49 AM [id number]) Physical Therapy Assessment Goals Five Impairment Hip strength Impairment Pt with 4-/5 to 4/5 hip strength. Stogy Maker Goal (LTG) Pt able to demonstrate 4/5-4+/ 5 hip strength grossly. LTG Duration 10/31/22 Four Impairment HEP Impairment Pt not currently participating in HEP. Stogy Maker Goal (LTG) Pt independent with HEP. LTG Duration 4 weeks update to 11/28/22 Three Impairment Trunk mobility Impairment Pt demonstrates limited trunk mobility in all directions by 50% Stogy Maker Goal (LTG) Pt able to demonstrate 25% improvement in trunk mobility in all directions. Goal partially met 10/30/22 LTG Duration 10/31/22 update to 11/28/22 Two Impairment Balance Impairment Pt able to maintain balance on R LE for 12 seconds and L for 4 seconds. Short Term Goal (STG) Pt able to maintain balance for 15 seconds on ea LE. GOAL MET on 10/21/22: Pt able to balance for 25 seconds STG Duration 10/17/22-achieved Stogy Maker Goal (LTG) Pt able to maintain balance for 20 seconds ea LE. GOAL MET on 10/21/22: Pt able to balance for 25 seconds LTG Duration 10/31/22 One Impairment Bilateral foot symptoms Impairment Pt rates foot numbness at 7/10 . Short Term Goal (STG) Pt will report foot numbness rating at 4/10. GOAL MET: Pt reports R foot at 0-4/10, L foot at 4-5/10. STG Duration 10/17/22 Longterm Goal (LTG) Pt will report foot numbness rating at 2/10. PROGRESSING: R 0-3/10, L 4-5/ 10 LTG Duration 10/31/22 update to 11/28/22 Assessment Summary Assessment Pt continues to fatigue with glute exercises. Pt required manual assist to prevent hip flexor compensation in sidelying SLR. Pt challenged with balance on BOSU activities. Pt demonstrates hip drop with SLS. Pt would benefit from continued PT to progress trunk and glute strength. Physical Therapy Plan Frequency and Duration Frequency of Treatment 2x/Week Duration of treatment (weeks) 8 Plan of Care Start Date 10/03/22 Plan of Care End Date 11/28/22 Therapeutic Interventions Therapeutic Interventions Balance Training,Coordination Training,Gait Training,Home Exercise Program,Joint Mobilizations,Neuromuscular Re -education,Patient/Caregiver Education,Self-Care/Home Management,Soft Tissue Mobilization,Taping, Therapeutic Activities, Therapeutic Exercises Modalities Cold Pack/Ice Massage,Electric Stimulation,Hot Packs, Ultrasound Next Visit Focus/Plan Next Note Type Treatment Note Next Visit Plan Continue to progress balance, progress trunk exercises as tolerated, add to table core exercise.
--- NOTE | 2022-11-13 10:18 | PT.OTN ---
Current Diagnoses Other abnormalities of gait and mobility (11/13/22) History of falling (11/13/22) Physical Therapy Treatment Note PT-OP-A Visit Information Start: 10/02/22 16:01 Freq: Status: Active Protocol: Document 11/13/22 09:13 SW (Rec: 11/13/22 10:18 [id number]) Out-Patient Physical Therapy Visit Information Visit Information Visit Type Treatment Note Visit Start Time 09:17 Visit Stop Time 10:00 Total Visit Minutes 43 Visit Number 12 Number of JAVA SCALA DEVELOPER Visits 1 PT-OP-B Current Condition Start: 10/02/22 16:01 Freq: Status: Active Protocol: Document 10/21/22 16:03 AM (Rec: 10/21/22 17:08 AM [id number]) Current Condition History of Current Condition Onset Date End of 2021/early 2022 Current Complaints c/o numbness bilateral toes. History of Current Condition c/o numbness bilateral toes. Denies pain in toes. First noticed this feeling on the left side, but now notices it in R as well. Pt has Raynauds. c/o generally cold feet unless he goes for a walk, then they are warm. Pt had a fall a few months ago. Pt stubbed his toe and fell. Pt reports that he has not noticed instability with numbness in feet. Pt interested in PT for core strength, balance. 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 Left numbess drifts, right one has feeling for the most part, feels improvement when feet are elevated. PT-OP-D Balance Start: 10/02/22 16:01 Freq: Status: Active Protocol: Document 10/03/22 13:33 AM (Rec: 10/03/22 16:00 AM [id number]) OP-PT Balance Assessment Sitting Balance Static Sitting Balance Ability Normal Dynamic Sitting Balance Ability Normal Standing Balance Static Standing Balance Ability Good Dynamic Standing Balance Ability Good Balance Tests Single Limb Standing Single Limb- Right 12 sec Single Limb- Left 4 sec Tandem Tandem Standing 30 sec Bradley Balance Assessment Evaluation Sitting to Standing Ability Independent w/out Hands Unsupported Stance Safely- 2 minutes Sitting Unsupported, Feet on Floor Safely- 2 minutes Standing to Sitting Ability Safely, Minimal Hand Use Transfer Ability Safely, Minimal Hand Use Unsupported Stance- Eyes Closed Safely, 10 seconds Unsupported Stance- Eyes Open Independent, 1 minute Reaching Forward Standing Confidently, 10 inches Pick- Up Object From Floor Independent/Safe Look Behind Shoulder - Standing Shifts Weight Well Turning 360 Degrees Turns Bilateral, < 4 secs Unsupported Stance, Alternating Feet on (I)- 8 Steps in 20 secs Stair Unsupported Tandem Stance Achieves Tandem Unilateral Leg Stance Lifts Leg/Holds 10 secs Total Score Bradley Total Score (out of 56 points) 56 Bradley Impairment Rating 0% Impaired (Score 56) Mckay Fall Scale Copyright Permission PT-OP-E Functional Tests Start: 10/02/22 16:01 Freq: Status: Active Protocol: Document 10/03/22 13:33 AM (Rec: 10/03/22 16:00 AM [id number]) Functional Tests Five Times Sit to Stand Test Score :9.23 Comments cued to not use back of legs against chair PT-OP-G Mobility & Gait Start: 10/02/22 16:01 Freq: Status: Active Protocol: Document 10/03/22 13:33 AM (Rec: 10/03/22 16:00 AM [id number]) OP Gait Assessment Gait Gait Assistance Required: Independent Assistive Devices Assistive Device None Gait Deviations General Gait Pattern Flexed Trunk Factors Limiting Gait Function Factors Limiting Gait Function Decreased Sensation PT-OP-H Neuro Start: 10/02/22 16:01 Freq: Status: Active Protocol: Document 10/03/22 13:33 AM (Rec: 10/03/22 16:00 AM [id number]) Sensation Evaluation Gross Sensation Gross Sensation Left LE Impaired,Right LE Impaired Sensation Description Numbness PT-OP-J Posture/Palpation/Skin Start: 10/02/22 16:01 Freq: Status: Active Protocol: Document 10/03/22 13:33 AM (Rec: 10/03/22 16:00 AM [id number]) Posture Evaluation Position Standing Evaluation View Lateral Head/C-Spine Posture Forward Head T-Spine Posture Increased Kyphosis L-Spine Posture Flattened Shoulder Posture (L) Rounded,(R) Rounded PT-OP-K Range of Motion Start: 10/02/22 16:01 Freq: Status: Active Protocol: Document 10/30/22 10:33 AM (Rec: 10/30/22 11:23 AM [id number]) Lumbar Spine Range of Motion Lumbar Spine Active Percentage Flexion 25 Extension 25 Rotation Left 50 Rotation Right 50 Lateral Flexion Left 50 Lateral Flexion Right 50 Comments Flexion 6.5 in R lat flexion: 19 L lat flexion: 19.5 Ext 20 deg Flex/Ext limited by 25% PT-OP-M Strength Start: 10/02/22 16:01 Freq: Status: Active Protocol: Document 10/03/22 13:33 AM (Rec: 10/03/22 16:00 AM [id number]) Hip Strength Hip Manual Muscle Testing Right Flexion (L2) 4 Good Extension (S1) 4 Good Abduction 4- Good- Adduction 4+ Good+ Left Flexion (L2) 4 Good Extension (S1) 4 Good Abduction 4- Good- Adduction 4+ Good+ Knee Strength Knee Manual Muscle Testing Right Flexion (S2) 4+ Good+ Extension (L3) 4+ Good+ Left Flexion (S2) 4+ Good+ Extension (L3) 4+ Good+ Ankle/Foot Strength Ankle and Foot Manual Muscle Testing Right Dorsiflexion (L4) 5 Normal Plantarflexion (S1) 5 Normal Left Dorsiflexion (L4) 5 Normal Plantarflexion (S1) 5 Normal PT-OP-Q Treatments Start: 10/02/22 16:01 Freq: Status: Active Protocol: Document 11/13/22 09:13 SW (Rec: 11/13/22 10:18 SW [id number]) Cardio Equipment Recumbent Bicycle Duration (Minutes) 5 Resistance 11 Seat Position 7 Gym Equipment Shuttle Recovery Unilateral Details Unilateral squats Resistance 50# Shuttle Recovery Platform Stable Reps/Time x1 min Bilateral Details Bilateral squats Resistance 75# (3 teal) Shuttle Recovery Platform Stable Reps/Time x 1 min Therapeutic Exercises Sidelying Exercises Hip Abd Sidelying Exercise Name AAROM Side bilateral Reps/Minutes x15 Comments AAROM to prevent hip flexor involvement clamshells Sidelying Exercise Name Clamshells Side bilateral Resistance 5# Reps/Minutes x20 Standing Exercises Side Step up Standing Exercise Name lateral step up Side bilateral Resistance 5# Equipment Used 6 stair Reps/Minutes x 10 ea Hip extension Standing Exercise Name Standing hip extension Side bilateral Resistance OTB Reps/Minutes 2x10 Hip abduction Standing Exercise Name Hip abduction Side bilateral Resistance 4# Reps/Minutes 2x10 Resisted side steps Resistance OTB Other Exercises Kneeling hip flexor stretch Other Exercise Name Kneeling hip flexor stretch Side bilateral Reps/Minutes 2x 1 min ea LE Neuro Re-Education Treatment Balance Activities SLS Details On blue foam Reps/Duration 2x30 sec BOSU balance Details Bosu balance, Bosu step ups, BOSU squats Surface unstable Equipment // bars PT-OP-T Assessment and Plan Start: 10/02/22 16:01 Freq: Status: Active Protocol: Document 11/13/22 09:13 SW (Rec: 11/13/22 10:18 SW [id number]) Physical Therapy Assessment Goals Five Impairment Hip strength Impairment Pt with 4-/5 to 4/5 hip strength. [facility] Goal (LTG) Pt able to demonstrate 4/5-4+/ 5 hip strength grossly. LTG Duration 10/31/22 Four Impairment HEP Impairment Pt not currently participating in HEP. [facility] Goal (LTG) Pt independent with HEP. LTG Duration 4 weeks update to 11/28/22 Three Impairment Trunk mobility Impairment Pt demonstrates limited trunk mobility in all directions by 50% Chcf Goal (LTG) Pt able to demonstrate 25% improvement in trunk mobility in all directions. Goal partially met 10/30/22 LTG Duration 10/31/22 update to 11/28/22 Two Impairment Balance Impairment Pt able to maintain balance on R LE for 12 seconds and L for 4 seconds. Short Term Goal (STG) Pt able to maintain balance for 15 seconds on ea LE. GOAL MET on 10/21/22: Pt able to balance for 25 seconds STG Duration 10/17/22-achieved [facility] Goal (LTG) Pt able to maintain balance for 20 seconds ea LE. GOAL MET on 10/21/22: Pt able to balance for 25 seconds LTG Duration 10/31/22 One Impairment Bilateral foot symptoms Impairment Pt rates foot numbness at 7/10 . Short Term Goal (STG) Pt will report foot numbness rating at 4/10. GOAL MET: Pt reports R foot at 0-4/10, L foot at 4-5/10. STG Duration 10/17/22 [facility] Goal (LTG) Pt will report foot numbness rating at 2/10. PROGRESSING: R 0-3/10, L 4-5/ 10 LTG Duration 10/31/22 update to 11/28/22 Assessment Summary Assessment Pt challenged with balance this session, demonstrated difficulty with hip drop during SLS balance. Progressed patient with addition of side step ups with weight, focusing on activating hip abd mm to maintain pelvic alignment. Physical Therapy Plan Frequency and Duration Frequency of Treatment 2x/Week Duration of treatment (weeks) 8 Plan of Care Start Date 10/03/22 Plan of Care End Date 11/28/22 Therapeutic Interventions Therapeutic Interventions Balance Training,Coordination Training,Gait Training,Home Exercise Program,Joint Mobilizations,Neuromuscular Re -education,Patient/Caregiver Education,Self-Care/Home Management,Soft Tissue Mobilization,Taping, Therapeutic Activities, Therapeutic Exercises Modalities Cold Pack/Ice Massage,Electric Stimulation,Hot Packs, Ultrasound Next Visit Focus/Plan Next Note Type Treatment Note Next Visit Plan Continue to progress balance, progress trunk exercises as tolerated, add to table core exercise.
--- NOTE | 2022-11-17 10:36 | PT.OTN ---
Current Diagnoses Other abnormalities of gait and mobility (11/17/22) History of falling (11/17/22) Physical Therapy Treatment Note PT-OP-A Visit Information Start: 10/02/22 16:01 Freq: Status: Active Protocol: Document 11/17/22 10:36 AM (Rec: 11/17/22 11:27 AM [id number]) Out-Patient Physical Therapy Visit Information Visit Information Visit Type Treatment Note Visit Start Time 10:36 Visit Stop Time 11:20 Total Visit Minutes 44 Visit Number 13 Number of BUILDING CONSTRUCTION SUPERINTENDENT Visits 1 PT-OP-B Current Condition Start: 10/02/22 16:01 Freq: Status: Active Protocol: Document 10/21/22 16:03 AM (Rec: 10/21/22 17:08 AM [id number]) Current Condition History of Current Condition Onset Date End of 2021/early 2022 Current Complaints c/o numbness bilateral toes. History of Current Condition c/o numbness bilateral toes. Denies pain in toes. First noticed this feeling on the left side, but now notices it in R as well. Pt has Raynauds. c/o generally cold feet unless he goes for a walk, then they are warm. Pt had a fall a few months ago. Pt stubbed his toe and fell. Pt reports that he has not noticed instability with numbness in feet. Pt interested in PT for core strength, balance. 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 Pt reports that his feet often feel that they are gripping. PT-OP-D Balance Start: 10/02/22 16:01 Freq: Status: Active Protocol: Document 10/03/22 13:33 AM (Rec: 10/03/22 16:00 AM [id number]) OP-PT Balance Assessment Sitting Balance Static Sitting Balance Ability Normal Dynamic Sitting Balance Ability Normal Standing Balance Static Standing Balance Ability Good Dynamic Standing Balance Ability Good Balance Tests Single Limb Standing Single Limb- Right 12 sec Single Limb- Left 4 sec Tandem Tandem Standing 30 sec Bradley Balance Assessment Evaluation Sitting to Standing Ability Independent w/out Hands Unsupported Stance Safely- 2 minutes Sitting Unsupported, Feet on Floor Safely- 2 minutes Standing to Sitting Ability Safely, Minimal Hand Use Transfer Ability Safely, Minimal Hand Use Unsupported Stance- Eyes Closed Safely, 10 seconds Unsupported Stance- Eyes Open Independent, 1 minute Reaching Forward Standing Confidently, 10 inches Pick- Up Object From Floor Independent/Safe Look Behind Shoulder - Standing Shifts Weight Well Turning 360 Degrees Turns Bilateral, < 4 secs Unsupported Stance, Alternating Feet on (I)- 8 Steps in 20 secs Stair Unsupported Tandem Stance Achieves Tandem Unilateral Leg Stance Lifts Leg/Holds 10 secs Total Score Bradley Total Score (out of 56 points) 56 Bradley Impairment Rating 0% Impaired (Score 56) Mckay Fall Scale Copyright Permission PT-OP-E Functional Tests Start: 10/02/22 16:01 Freq: Status: Active Protocol: Document 10/03/22 13:33 AM (Rec: 10/03/22 16:00 AM [id number]) Functional Tests Five Times Sit to Stand Test Score :9.23 Comments cued to not use back of legs against chair PT-OP-G Mobility & Gait Start: 10/02/22 16:01 Freq: Status: Active Protocol: Document 10/03/22 13:33 AM (Rec: 10/03/22 16:00 AM [id number]) OP Gait Assessment Gait Gait Assistance Required: Independent Assistive Devices Assistive Device None Gait Deviations General Gait Pattern Flexed Trunk Factors Limiting Gait Function Factors Limiting Gait Function Decreased Sensation PT-OP-H Neuro Start: 10/02/22 16:01 Freq: Status: Active Protocol: Document 10/03/22 13:33 AM (Rec: 10/03/22 16:00 AM [id number]) Sensation Evaluation Gross Sensation Gross Sensation Left LE Impaired,Right LE Impaired Sensation Description Numbness PT-OP-J Posture/Palpation/Skin Start: 10/02/22 16:01 Freq: Status: Active Protocol: Document 10/03/22 13:33 AM (Rec: 10/03/22 16:00 AM [id number]) Posture Evaluation Position Standing Evaluation View Lateral Head/C-Spine Posture Forward Head T-Spine Posture Increased Kyphosis L-Spine Posture Flattened Shoulder Posture (L) Rounded,(R) Rounded PT-OP-K Range of Motion Start: 10/02/22 16:01 Freq: Status: Active Protocol: Document 10/30/22 10:33 AM (Rec: 10/30/22 11:23 AM [id number]) Lumbar Spine Range of Motion Lumbar Spine Active Percentage Flexion 25 Extension 25 Rotation Left 50 Rotation Right 50 Lateral Flexion Left 50 Lateral Flexion Right 50 Comments Flexion 6.5 in R lat flexion: 19 L lat flexion: 19.5 Ext 20 deg Flex/Ext limited by 25% PT-OP-M Strength Start: 10/02/22 16:01 Freq: Status: Active Protocol: Document 10/03/22 13:33 AM (Rec: 10/03/22 16:00 AM [id number]) Hip Strength Hip Manual Muscle Testing Right Flexion (L2) 4 Good Extension (S1) 4 Good Abduction 4- Good- Adduction 4+ Good+ Left Flexion (L2) 4 Good Extension (S1) 4 Good Abduction 4- Good- Adduction 4+ Good+ Knee Strength Knee Manual Muscle Testing Right Flexion (S2) 4+ Good+ Extension (L3) 4+ Good+ Left Flexion (S2) 4+ Good+ Extension (L3) 4+ Good+ Ankle/Foot Strength Ankle and Foot Manual Muscle Testing Right Dorsiflexion (L4) 5 Normal Plantarflexion (S1) 5 Normal Left Dorsiflexion (L4) 5 Normal Plantarflexion (S1) 5 Normal PT-OP-Q Treatments Start: 10/02/22 16:01 Freq: Status: Active Protocol: Document 11/17/22 10:36 AM (Rec: 11/17/22 11:27 AM [id number]) Cardio Equipment Recumbent Elliptical (Biodex) Duration (Minutes) 5 Resistance 10 Seat Position 9 Gym Equipment Shuttle Recovery Unilateral Details Unilateral squats Resistance 50# Shuttle Recovery Platform Stable Reps/Time x1 min Bilateral Details Bilateral squats Resistance 75# (3 teal) Shuttle Recovery Platform Stable Reps/Time x 1 min Therapeutic Exercises Standing Exercises Side Step up Standing Exercise Name lat and fwd Side bilateral Equipment Used 8'' Reps/Minutes 2x10 ea 2 Standing Exercise Name hamstring stretch Side bilateral Reps/Minutes 2x30 sec 1 Standing Exercise Name Calf stretch Equipment Used VICKIE Reps/Minutes 2x30 sec Other Exercises Kneeling hip flexor stretch Other Exercise Name Kneeling hip flexor stretch Side bilateral Reps/Minutes 2x 1 min ea LE Neuro Re-Education Treatment Balance Activities Wobble board Details EC Equipment // bars Tandem Details With head turns Equipment // bars PT-OP-T Assessment and Plan Start: 10/02/22 16:01 Freq: Status: Active Protocol: Document 11/17/22 10:36 AM (Rec: 11/17/22 11:27 AM [id number]) Physical Therapy Assessment Goals Five Impairment Hip strength Impairment Pt with 4-/5 to 4/5 hip strength. Contact Lens Inspector Goal (LTG) Pt able to demonstrate 4/5-4+/ 5 hip strength grossly. LTG Duration 10/31/22 Four Impairment HEP Impairment Pt not currently participating in HEP. Intermediate Goal (LTG) Pt independent with HEP. LTG Duration 4 weeks update to 11/28/22 Three Impairment Trunk mobility Impairment Pt demonstrates limited trunk mobility in all directions by 50% Contact Lens Inspector Goal (LTG) Pt able to demonstrate 25% improvement in trunk mobility in all directions. Goal partially met 10/30/22 LTG Duration 10/31/22 update to 11/28/22 Two Impairment Balance Impairment Pt able to maintain balance on R LE for 12 seconds and L for 4 seconds. Short Term Goal (STG) Pt able to maintain balance for 15 seconds on ea LE. GOAL MET on 10/21/22: Pt able to balance for 25 seconds STG Duration 10/17/22-achieved Intermediate Goal (LTG) Pt able to maintain balance for 20 seconds ea LE. GOAL MET on 10/21/22: Pt able to balance for 25 seconds LTG Duration 10/31/22 One Impairment Bilateral foot symptoms Impairment Pt rates foot numbness at 7/10 . Short Term Goal (STG) Pt will report foot numbness rating at 4/10. GOAL MET: Pt reports R foot at 0-4/10, L foot at 4-5/10. STG Duration 10/17/22 Contact Lens Inspector Goal (LTG) Pt will report foot numbness rating at 2/10. PROGRESSING: R 0-3/10, L 4-5/ 10 LTG Duration 10/31/22 update to 10/20/23 Assessment Summary Assessment Pt challenged with balance when vision was altered. Pt with reported fatigue at LE with PRE today. Pt would benefit from continued PT to progress LE/lumbopelvic strength and LE mobiltiy to decrease fall risk and improve LE symptoms. Physical Therapy Plan Frequency and Duration Frequency of Treatment 2x/Week Duration of treatment (weeks) 8 Plan of Care Start Date 10/03/22 Plan of Care End Date 11/28/22 Therapeutic Interventions Therapeutic Interventions Balance Training,Coordination Training,Gait Training,Home Exercise Program,Joint Mobilizations,Neuromuscular Re -education,Patient/Caregiver Education,Self-Care/Home Management,Soft Tissue Mobilization,Taping, Therapeutic Activities, Therapeutic Exercises Modalities Cold Pack/Ice Massage,Electric Stimulation,Hot Packs, Ultrasound Next Visit Focus/Plan Next Note Type Treatment Note Next Visit Plan Continue to progress balance, progress trunk exercises as tolerated, add to table core exercise.
--- NOTE | 2022-11-19 10:21 | PT.OTN ---
Current Diagnoses Other abnormalities of gait and mobility (11/19/22) History of falling (11/19/22) Physical Therapy Treatment Note PT-OP-A Visit Information Start: 10/02/22 16:01 Freq: Status: Active Protocol: Document 11/19/22 09:18 SW (Rec: 11/19/22 10:21 [id number]) Out-Patient Physical Therapy Visit Information Visit Information Visit Type Treatment Note Visit Start Time 09:16 Visit Stop Time 10:00 Total Visit Minutes 44 Visit Number 14 Number of PANEL WIRER Visits 1 PT-OP-B Current Condition Start: 10/02/22 16:01 Freq: Status: Active Protocol: Document 10/21/22 16:03 AM (Rec: 10/21/22 17:08 AM [id number]) Current Condition History of Current Condition Onset Date End of 2021/early 2022 Current Complaints c/o numbness bilateral toes. History of Current Condition c/o numbness bilateral toes. Denies pain in toes. First noticed this feeling on the left side, but now notices it in R as well. Pt has Raynauds. c/o generally cold feet unless he goes for a walk, then they are warm. Pt had a fall a few months ago. Pt stubbed his toe and fell. Pt reports that he has not noticed instability with numbness in feet. Pt interested in PT for core strength, balance. 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 Numbness comes and goes, seems to be related to reynauds. PT-OP-D Balance Start: 10/02/22 16:01 Freq: Status: Active Protocol: Document 10/03/22 13:33 AM (Rec: 10/03/22 16:00 AM [id number]) OP-PT Balance Assessment Sitting Balance Static Sitting Balance Ability Normal Dynamic Sitting Balance Ability Normal Standing Balance Static Standing Balance Ability Good Dynamic Standing Balance Ability Good Balance Tests Single Limb Standing Single Limb- Right 12 sec Single Limb- Left 4 sec Tandem Tandem Standing 30 sec Bradley Balance Assessment Evaluation Sitting to Standing Ability Independent w/out Hands Unsupported Stance Safely- 2 minutes Sitting Unsupported, Feet on Floor Safely- 2 minutes Standing to Sitting Ability Safely, Minimal Hand Use Transfer Ability Safely, Minimal Hand Use Unsupported Stance- Eyes Closed Safely, 10 seconds Unsupported Stance- Eyes Open Independent, 1 minute Reaching Forward Standing Confidently, 10 inches Pick- Up Object From Floor Independent/Safe Look Behind Shoulder - Standing Shifts Weight Well Turning 360 Degrees Turns Bilateral, < 4 secs Unsupported Stance, Alternating Feet on (I)- 8 Steps in 20 secs Stair Unsupported Tandem Stance Achieves Tandem Unilateral Leg Stance Lifts Leg/Holds 10 secs Total Score Bradley Total Score (out of 56 points) 56 Bradley Impairment Rating 0% Impaired (Score 56) Mckay Fall Scale Copyright Permission PT-OP-E Functional Tests Start: 10/02/22 16:01 Freq: Status: Active Protocol: Document 10/03/22 13:33 AM (Rec: 10/03/22 16:00 AM [id number]) Functional Tests Five Times Sit to Stand Test Score :9.23 Comments cued to not use back of legs against chair PT-OP-G Mobility & Gait Start: 10/02/22 16:01 Freq: Status: Active Protocol: Document 10/03/22 13:33 AM (Rec: 10/03/22 16:00 AM [id number]) OP Gait Assessment Gait Gait Assistance Required: Independent Assistive Devices Assistive Device None Gait Deviations General Gait Pattern Flexed Trunk Factors Limiting Gait Function Factors Limiting Gait Function Decreased Sensation PT-OP-H Neuro Start: 10/02/22 16:01 Freq: Status: Active Protocol: Document 10/03/22 13:33 AM (Rec: 10/03/22 16:00 AM [id number]) Sensation Evaluation Gross Sensation Gross Sensation Left LE Impaired,Right LE Impaired Sensation Description Numbness PT-OP-J Posture/Palpation/Skin Start: 10/02/22 16:01 Freq: Status: Active Protocol: Document 10/03/22 13:33 AM (Rec: 10/03/22 16:00 AM [id number]) Posture Evaluation Position Standing Evaluation View Lateral Head/C-Spine Posture Forward Head T-Spine Posture Increased Kyphosis L-Spine Posture Flattened Shoulder Posture (L) Rounded,(R) Rounded PT-OP-K Range of Motion Start: 10/02/22 16:01 Freq: Status: Active Protocol: Document 10/30/22 10:33 AM (Rec: 10/30/22 11:23 AM [id number]) Lumbar Spine Range of Motion Lumbar Spine Active Percentage Flexion 25 Extension 25 Rotation Left 50 Rotation Right 50 Lateral Flexion Left 50 Lateral Flexion Right 50 Comments Flexion 6.5 in R lat flexion: 19 L lat flexion: 19.5 Ext 20 deg Flex/Ext limited by 25% PT-OP-M Strength Start: 10/02/22 16:01 Freq: Status: Active Protocol: Document 10/03/22 13:33 AM (Rec: 10/03/22 16:00 AM [id number]) Hip Strength Hip Manual Muscle Testing Right Flexion (L2) 4 Good Extension (S1) 4 Good Abduction 4- Good- Adduction 4+ Good+ Left Flexion (L2) 4 Good Extension (S1) 4 Good Abduction 4- Good- Adduction 4+ Good+ Knee Strength Knee Manual Muscle Testing Right Flexion (S2) 4+ Good+ Extension (L3) 4+ Good+ Left Flexion (S2) 4+ Good+ Extension (L3) 4+ Good+ Ankle/Foot Strength Ankle and Foot Manual Muscle Testing Right Dorsiflexion (L4) 5 Normal Plantarflexion (S1) 5 Normal Left Dorsiflexion (L4) 5 Normal Plantarflexion (S1) 5 Normal PT-OP-Q Treatments Start: 10/02/22 16:01 Freq: Status: Active Protocol: Document 11/19/22 09:18 SW (Rec: 11/19/22 10:21 SW [id number]) Cardio Equipment Recumbent Bicycle Duration (Minutes) 5 Resistance 11 Seat Position 7 Gym Equipment Shuttle Recovery Unilateral Details Unilateral squats Resistance 50# Shuttle Recovery Platform Stable Reps/Time x1 min Bilateral Details Bilateral squats Resistance 75# (1 blue, 2 teal) Shuttle Recovery Platform Stable Reps/Time x 1 min Therapeutic Exercises Supine Exercises Thoracic Mobility Supine Exercise Name Thoracic mobility on foam roll , issued HEP HO Reps/Minutes x 3 min Comments cues for cervical support and breathwork Standing Exercises Hip extension Standing Exercise Name Standing hip extension, reviewed- issued HEP HO Side bilateral Resistance OTB Reps/Minutes 2x10 Comments extended time for education Hip abduction Standing Exercise Name Hip abduction, Reviewed- issued HEP HO Side bilateral Resistance OTB Reps/Minutes 2x10 Comments extended time for education Resisted side steps Standing Exercise Name Reviewed, issued HEP Resistance OTB Equipment Used @ bar Reps/Minutes 2 x 10 ft Comments extended time for education 2 Standing Exercise Name hamstring stretch Side bilateral Reps/Minutes 2x30 sec 1 Standing Exercise Name Calf stretch Equipment Used VICKIE Reps/Minutes 2x30 sec Other Exercises Thoracic rotation Other Exercise Name Thoracic rotation stretch, issued HEP HO Side bilateral Equipment Used @ wall corner Reps/Minutes x 15 hold ea Comments cues to avoid compensation with hips and not to stretch into pn Kneeling hip flexor stretch Other Exercise Name Kneeling hip flexor stretch Side bilateral Reps/Minutes 2x 1 min ea LE PT-OP-T Assessment and Plan Start: 10/02/22 16:01 Freq: Status: Active Protocol: Document 11/19/22 09:18 (Rec: 11/19/22 10:21 [id number]) Physical Therapy Assessment Goals Five Impairment Hip strength Impairment Pt with 4-/5 to 4/5 hip strength. Hazardous Materials Driver Goal (LTG) Pt able to demonstrate 4/5-4+/ 5 hip strength grossly. LTG Duration 10/31/22 Four Impairment HEP Impairment Pt not currently participating in HEP. Group Home Goal (LTG) Pt independent with HEP. * 11/19/22- Issued HEP exercises HO given: -Thoracic mobility on foam roll -Doorway thoracic rotation stretch -Kneeling Hip Flex stretch -Standing Hip abd w/resistance -Standing Hip ext w/resistance -Standing Hip flex w/ resistance LTG Duration 4 weeks update to 11/28/22 Three Impairment Trunk mobility Impairment Pt demonstrates limited trunk mobility in all directions by 50% Hazardous Materials Driver Goal (LTG) Pt able to demonstrate 25% improvement in trunk mobility in all directions. Goal partially met 10/30/22 LTG Duration 10/31/22 update to 11/28/22 Two Impairment Balance Impairment Pt able to maintain balance on R LE for 12 seconds and L for 4 seconds. Short Term Goal (STG) Pt able to maintain balance for 15 seconds on ea LE. GOAL MET on 10/21/22: Pt able to balance for 25 seconds STG Duration 10/17/22-achieved Group Home Goal (LTG) Pt able to maintain balance for 20 seconds ea LE. GOAL MET on 10/21/22: Pt able to balance for 25 seconds LTG Duration 10/31/22 One Impairment Bilateral foot symptoms Impairment Pt rates foot numbness at 7/10 . Short Term Goal (STG) Pt will report foot numbness rating at 4/10. GOAL MET: Pt reports R foot at 0-4/10, L foot at 4-5/10. STG Duration 10/17/22 Hazardous Materials Driver Goal (LTG) Pt will report foot numbness rating at 2/10. PROGRESSING: R 0-3/10, L 4-5/ 10 LTG Duration 10/31/22 update to 11/28/22 Assessment Summary Assessment Progressed resistance with bilateral squats on shuttle recovery. Focused on Hip strength and thoracic mobility this session, reviewed exercises for HEP, issued HO, see comment in HEP goal for reference prn. Focused on correct execution, and encouraged pt feedback for response and understanding for carryover to home. Discussed safety with exercises, plan to follow up next session. Physical Therapy Plan Frequency and Duration Frequency of Treatment 2x/Week Duration of treatment (weeks) 8 Plan of Care Start Date 10/03/22 Plan of Care End Date 11/28/22 Therapeutic Interventions Therapeutic Interventions Balance Training,Coordination Training,Gait Training,Home Exercise Program,Joint Mobilizations,Neuromuscular Re -education,Patient/Caregiver Education,Self-Care/Home Management,Soft Tissue Mobilization,Taping, Therapeutic Activities, Therapeutic Exercises Modalities Cold Pack/Ice Massage,Electric Stimulation,Hot Packs, Ultrasound Next Visit Focus/Plan Next Note Type Treatment Note Next Visit Plan Continue to progress balance, progress trunk exercises as tolerated, add to table core exercise.
--- NOTE | 2022-11-26 13:07 | PT.OTN ---
Current Diagnoses Other abnormalities of gait and mobility (11/26/22) History of falling (11/26/22) Physical Therapy Treatment Note PT-OP-A Visit Information Start: 10/02/22 16:01 Freq: Status: Active Protocol: Document 11/26/22 09:08 SW (Rec: 11/26/22 10:33 [id number]) Out-Patient Physical Therapy Visit Information Visit Information Visit Type Treatment Note Visit Start Time 09:15 Visit Stop Time 10:00 Total Visit Minutes 45 Visit Number 15 Number of CERAMIC ENGINEER Visits 2 PT-OP-B Current Condition Start: 10/02/22 16:01 Freq: Status: Active Protocol: Document 10/21/22 16:03 AM (Rec: 10/21/22 17:08 AM [id number]) Current Condition History of Current Condition Onset Date End of 2021/early 2022 Current Complaints c/o numbness bilateral toes. History of Current Condition c/o numbness bilateral toes. Denies pain in toes. First noticed this feeling on the left side, but now notices it in R as well. Pt has Raynauds. c/o generally cold feet unless he goes for a walk, then they are warm. Pt had a fall a few months ago. Pt stubbed his toe and fell. Pt reports that he has not noticed instability with numbness in feet. Pt interested in PT for core strength, balance. 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 Reports a lot more driving to [place] and back for daughter's needs. PT-OP-D Balance Start: 10/02/22 16:01 Freq: Status: Active Protocol: Document 10/03/22 13:33 AM (Rec: 10/03/22 16:00 AM [id number]) OP-PT Balance Assessment Sitting Balance Static Sitting Balance Ability Normal Dynamic Sitting Balance Ability Normal Standing Balance Static Standing Balance Ability Good Dynamic Standing Balance Ability Good Balance Tests Single Limb Standing Single Limb- Right 12 sec Single Limb- Left 4 sec Tandem Tandem Standing 30 sec Bradley Balance Assessment Evaluation Sitting to Standing Ability Independent w/out Hands Unsupported Stance Safely- 2 minutes Sitting Unsupported, Feet on Floor Safely- 2 minutes Standing to Sitting Ability Safely, Minimal Hand Use Transfer Ability Safely, Minimal Hand Use Unsupported Stance- Eyes Closed Safely, 10 seconds Unsupported Stance- Eyes Open Independent, 1 minute Reaching Forward Standing Confidently, 10 inches Pick- Up Object From Floor Independent/Safe Look Behind Shoulder - Standing Shifts Weight Well Turning 360 Degrees Turns Bilateral, < 4 secs Unsupported Stance, Alternating Feet on (I)- 8 Steps in 20 secs Stair Unsupported Tandem Stance Achieves Tandem Unilateral Leg Stance Lifts Leg/Holds 10 secs Total Score Bradley Total Score (out of 56 points) 56 Bradley Impairment Rating 0% Impaired (Score 56) Mckay Fall Scale Copyright Permission PT-OP-E Functional Tests Start: 10/02/22 16:01 Freq: Status: Active Protocol: Document 10/03/22 13:33 AM (Rec: 10/03/22 16:00 AM [id number]) Functional Tests Five Times Sit to Stand Test Score :9.23 Comments cued to not use back of legs against chair PT-OP-G Mobility & Gait Start: 10/02/22 16:01 Freq: Status: Active Protocol: Document 10/03/22 13:33 AM (Rec: 10/03/22 16:00 AM [id number]) OP Gait Assessment Gait Gait Assistance Required: Independent Assistive Devices Assistive Device None Gait Deviations General Gait Pattern Flexed Trunk Factors Limiting Gait Function Factors Limiting Gait Function Decreased Sensation PT-OP-H Neuro Start: 10/02/22 16:01 Freq: Status: Active Protocol: Document 10/03/22 13:33 AM (Rec: 10/03/22 16:00 AM [id number]) Sensation Evaluation Gross Sensation Gross Sensation Left LE Impaired,Right LE Impaired Sensation Description Numbness PT-OP-J Posture/Palpation/Skin Start: 10/02/22 16:01 Freq: Status: Active Protocol: Document 10/03/22 13:33 AM (Rec: 10/03/22 16:00 AM [id number]) Posture Evaluation Position Standing Evaluation View Lateral Head/C-Spine Posture Forward Head T-Spine Posture Increased Kyphosis L-Spine Posture Flattened Shoulder Posture (L) Rounded,(R) Rounded PT-OP-K Range of Motion Start: 10/02/22 16:01 Freq: Status: Active Protocol: Document 10/30/22 10:33 AM (Rec: 10/30/22 11:23 AM [id number]) Lumbar Spine Range of Motion Lumbar Spine Active Percentage Flexion 25 Extension 25 Rotation Left 50 Rotation Right 50 Lateral Flexion Left 50 Lateral Flexion Right 50 Comments Flexion 6.5 in R lat flexion: 19 L lat flexion: 19.5 Ext 20 deg Flex/Ext limited by 25% PT-OP-M Strength Start: 10/02/22 16:01 Freq: Status: Active Protocol: Document 10/03/22 13:33 AM (Rec: 10/03/22 16:00 AM [id number]) Hip Strength Hip Manual Muscle Testing Right Flexion (L2) 4 Good Extension (S1) 4 Good Abduction 4- Good- Adduction 4+ Good+ Left Flexion (L2) 4 Good Extension (S1) 4 Good Abduction 4- Good- Adduction 4+ Good+ Knee Strength Knee Manual Muscle Testing Right Flexion (S2) 4+ Good+ Extension (L3) 4+ Good+ Left Flexion (S2) 4+ Good+ Extension (L3) 4+ Good+ Ankle/Foot Strength Ankle and Foot Manual Muscle Testing Right Dorsiflexion (L4) 5 Normal Plantarflexion (S1) 5 Normal Left Dorsiflexion (L4) 5 Normal Plantarflexion (S1) 5 Normal PT-OP-Q Treatments Start: 10/02/22 16:01 Freq: Status: Active Protocol: Document 11/26/22 09:08 SW (Rec: 11/26/22 10:33 SW [id number]) Cardio Equipment Recumbent Bicycle Duration (Minutes) 5 Resistance 11 Seat Position 7 Gym Equipment Shuttle Recovery Unilateral Details Unilateral squats Resistance 50# Shuttle Recovery Platform Stable Reps/Time x1 min Bilateral Details Bilateral squats Resistance 75# (3 teal) Shuttle Recovery Platform Stable Reps/Time x 1 min Therapeutic Exercises Supine Exercises Core Supine Exercise Name [employer] Fwd/ bilateral Equipment Used [place] ball Comments Cues decreased tension in cervical muscles/UT Bridge Equipment Used 3x10 Comments Cues for glute activation and core control Thoracic Mobility Supine Exercise Name Thoracic mobility on foam roll Reps/Minutes x 5 min Comments cues for cervical support and breathwork Standing Exercises Side Step up Standing Exercise Name Fwd only d/t pt tolerance Side bilateral Equipment Used 6 Reps/Minutes 2x10 ea Other Exercises Isometric Walkouts Other Exercise Name core stabilization Equipment Used [place] TB Reps/Minutes x 5 ea Kneeling hip flexor stretch Other Exercise Name Kneeling hip flexor stretch Side bilateral Reps/Minutes 2x 1 min ea LE Self-Care/Home Management Treatment Education Patient Education Home Exercise Program,Pain Management Other Education discussed modalities prn, pt feels discomfort has not been often enough to feel the need PT-OP-T Assessment and Plan Start: 10/02/22 16:01 Freq: Status: Active Protocol: Document 11/26/22 09:08 (Rec: 11/26/22 10:33 [id number]) Physical Therapy Assessment Goals Five Impairment Hip strength Impairment Pt with 4-/5 to 4/5 hip strength. Machine Pan Greaser Goal (LTG) Pt able to demonstrate 4/5-4+/ 5 hip strength grossly. LTG Duration 10/31/22 Four Impairment HEP Impairment Pt not currently participating in HEP. Longterm Goal (LTG) Pt independent with HEP. * 11/19/22- Issued HEP exercises HO given: -Thoracic mobility on foam roll (horizontal) -Seated thoracic rotation -Kneeling Hip Flex stretch -Standing Hip abd w/resistance -Standing Hip ext w/resistance -Standing Hip flex w/ resistance LTG Duration 4 weeks update to 11/28/22 Three Impairment Trunk mobility Impairment Pt demonstrates limited trunk mobility in all directions by 50% Machine Pan Greaser Goal (LTG) Pt able to demonstrate 25% improvement in trunk mobility in all directions. Goal partially met 10/30/22 LTG Duration 10/31/22 update to 11/28/22 Two Impairment Balance Impairment Pt able to maintain balance on R LE for 12 seconds and L for 4 seconds. Short Term Goal (STG) Pt able to maintain balance for 15 seconds on ea LE. GOAL MET on 10/21/22: Pt able to balance for 25 seconds STG Duration 10/17/22-achieved Longterm Goal (LTG) Pt able to maintain balance for 20 seconds ea LE. GOAL MET on 10/21/22: Pt able to balance for 25 seconds LTG Duration 10/31/22 One Impairment Bilateral foot symptoms Impairment Pt rates foot numbness at 7/10 . Short Term Goal (STG) Pt will report foot numbness rating at 4/10. GOAL MET: Pt reports R foot at 0-4/10, L foot at 4-5/10. STG Duration 10/17/22 Machine Pan Greaser Goal (LTG) Pt will report foot numbness rating at 2/10. PROGRESSING: R 0-3/10, L 4-5/ 10 LTG Duration 10/31/22 update to 11/28/22 Assessment Summary Assessment Treatment focus on core strengthening this session. Progressed table core exercises. Pt tolerated well with good feedback. Pt last scheduled session next week w/ PT, pt plans to discuss PT recommendations then. Physical Therapy Plan Frequency and Duration Frequency of Treatment 2x/Week Duration of treatment (weeks) 8 Plan of Care Start Date 10/03/22 Plan of Care End Date 11/28/22 Therapeutic Interventions Therapeutic Interventions Balance Training,Coordination Training,Gait Training,Home Exercise Program,Joint Mobilizations,Neuromuscular Re -education,Patient/Caregiver Education,Self-Care/Home Management,Soft Tissue Mobilization,Taping, Therapeutic Activities, Therapeutic Exercises Modalities Cold Pack/Ice Massage,Electric Stimulation,Hot Packs, Ultrasound Next Visit Focus/Plan Next Note Type Treatment Note Next Visit Plan Continue to progress balance, progress trunk exercises as tolerated, add to table core exercise.
--- NOTE | 2022-12-01 09:03 | PT.OTN ---
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 History of Current Condition c/o numbness bilateral toes. Denies pain in toes. First noticed this feeling on the left side, but now notices it in R as well. Pt has Raynauds. c/o generally cold feet unless he goes for a walk, then they are warm. Pt had a fall a few months ago. Pt stubbed his toe and fell. Pt reports that he has not noticed instability with numbness in feet. Pt interested in PT for core strength, balance. 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, ongoing denervation in bilatearl MG/ glut max/lower lumbosacral paraspinal muscles; Right L5 spinal nerve lesion affecting R TA/FHL/lower lumbosavral paraspinal muscles; Left chronic L5 spinal nerve lesion PT-OP-C Subjective Start: 10/02/22 16:01 Freq: Status: Active Protocol: Document 12/01/22 09:03 AM (Rec: 12/01/22 09:12 AM [id number]) OP-PT Subjective Patient Comments Patient Comments Pt reports that he is continuing to have samantha hip pain, but thinks that it is partially sore muscles from increased exercises at PT. Pt reports that his numbness has plateaued. Pt admits that he is not always compliant with HEP. PT-OP-D Balance Start: 10/02/22 16:01 Freq: Status: Active Protocol: Document 10/03/22 13:33 AM (Rec: 10/03/22 16:00 AM [id number]) OP-PT Balance Assessment Sitting Balance Static Sitting Balance Ability Normal Dynamic Sitting Balance Ability Normal Standing Balance Static Standing Balance Ability Good Dynamic Standing Balance Ability Good Balance Tests Single Limb Standing Single Limb- Right 12 sec Single Limb- Left 4 sec Tandem Tandem Standing 30 sec Bradley Balance Assessment Evaluation Sitting to Standing Ability Independent w/out Hands Unsupported Stance Safely- 2 minutes Sitting Unsupported, Feet on Floor Safely- 2 minutes Standing to Sitting Ability Safely, Minimal Hand Use Transfer Ability Safely, Minimal Hand Use Unsupported Stance- Eyes Closed Safely, 10 seconds Unsupported Stance- Eyes Open Independent, 1 minute Reaching Forward Standing Confidently, 10 inches Pick- Up Object From Floor Independent/Safe Look Behind Shoulder - Standing Shifts Weight Well Turning 360 Degrees Turns Bilateral, < 4 secs Unsupported Stance, Alternating Feet on (I)- 8 Steps in 20 secs Stair Unsupported Tandem Stance Achieves Tandem Unilateral Leg Stance Lifts Leg/Holds 10 secs Total Score Bradley Total Score (out of 56 points) 56 Bradley Impairment Rating 0% Impaired (Score 56) Mckay Fall Scale Copyright Permission PT-OP-E Functional Tests Start: 10/02/22 16:01 Freq: Status: Active Protocol: Document 12/01/22 09:03 AM (Rec: 12/01/22 09:12 AM [id number]) Functional Tests 30 Second Sit to Stand Test Score . PT-OP-G Mobility & Gait Start: 10/02/22 16:01 Freq: Status: Active Protocol: Document 10/03/22 13:33 AM (Rec: 10/03/22 16:00 AM [id number]) OP Gait Assessment Gait Gait Assistance Required: Independent Assistive Devices Assistive Device None Gait Deviations General Gait Pattern Flexed Trunk Factors Limiting Gait Function Factors Limiting Gait Function Decreased Sensation PT-OP-H Neuro Start: 10/02/22 16:01 Freq: Status: Active Protocol: Document 10/03/22 13:33 AM (Rec: 10/03/22 16:00 AM [id number]) Sensation Evaluation Gross Sensation Gross Sensation Left LE Impaired,Right LE Impaired Sensation Description Numbness PT-OP-J Posture/Palpation/Skin Start: 10/02/22 16:01 Freq: Status: Active Protocol: Document 10/03/22 13:33 AM (Rec: 10/03/22 16:00 AM [id number]) Posture Evaluation Position Standing Evaluation View Lateral Head/C-Spine Posture Forward Head T-Spine Posture Increased Kyphosis L-Spine Posture Flattened Shoulder Posture (L) Rounded,(R) Rounded PT-OP-K Range of Motion Start: 10/02/22 16:01 Freq: Status: Active Protocol: Document 12/01/22 09:03 AM (Rec: 12/01/22 09:39 AM [id number]) Lumbar Spine Range of Motion Lumbar Spine Active Percentage Testing Position Standing Comments Flexion 6 in R lat flex: 19 in L lat flex: 20 in Ext 30 deg PT-OP-M Strength Start: 10/02/22 16:01 Freq: Status: Active Protocol: Document 10/03/22 13:33 AM (Rec: 10/03/22 16:00 AM [id number]) Hip Strength Hip Manual Muscle Testing Right Flexion (L2) 4 Good Extension (S1) 4 Good Abduction 4- Good- Adduction 4+ Good+ Left Flexion (L2) 4 Good Extension (S1) 4 Good Abduction 4- Good- Adduction 4+ Good+ Knee Strength Knee Manual Muscle Testing Right Flexion (S2) 4+ Good+ Extension (L3) 4+ Good+ Left Flexion (S2) 4+ Good+ Extension (L3) 4+ Good+ Ankle/Foot Strength Ankle and Foot Manual Muscle Testing Right Dorsiflexion (L4) 5 Normal Plantarflexion (S1) 5 Normal Left Dorsiflexion (L4) 5 Normal Plantarflexion (S1) 5 Normal PT-OP-Q Treatments Start: 10/02/22 16:01 Freq: Status: Active Protocol: Document 12/01/22 09:03 AM (Rec: 12/01/22 09:12 AM [id number]) Cardio Equipment Recumbent Bicycle Duration (Minutes) 5 Resistance 11 Seat Position 7 Therapeutic Exercises Standing Exercises Hip extension Standing Exercise Name Hip extension Resistance Leon TB Comments cues for trunk stabilization and decreased speed Hip abduction Resistance Leon TB Reps/Minutes 2x10 Comments cues to decrease speed and for trunk stabilization. Resisted side steps Resistance Leon TB Equipment Used railing Reps/Minutes 2x20 ft 2 Standing Exercise Name hamstring stretch Side bilateral Reps/Minutes 2x30 sec 1 Standing Exercise Name calf strength Side bilateral Reps/Minutes 2x30 sec Other Exercises Kneeling hip flexor stretch Other Exercise Name Kneeling hip flexor stretch Side bilateral Reps/Minutes 2x 1 min ea LE Self-Care/Home Management Treatment Education Patient Education Home Exercise Program Other Education Reviewed HEP PT-OP-T Assessment and Plan Start: 10/02/22 16:01 Freq: Status: Active Protocol: Document 12/01/22 09:03 AM (Rec: 12/01/22 09:12 AM [id number]) Physical Therapy Assessment Goals Five Impairment Hip strength Impairment Pt with 4-/5 to 4/5 hip strength. Staffing Rn Goal (LTG) Pt able to demonstrate 4/5-4+/ 5 hip strength grossly. Partially met on 12/01/22. Pt continues to demonstrate weakness at gluteals, demonstrating hip drop with unilateral stance. LTG Duration 12/05/22 Four Impairment HEP Impairment Pt not currently participating in HEP. Staffing Rn Goal (LTG) Pt independent with HEP. Goal Met: Pt demonstrates good understanding of HEP and encouraged to continue to progress strength independently. LTG Duration 12/01/22-achieved Three Impairment Trunk mobility Impairment Pt demonstrates limited trunk mobility in all directions by 50% Intermediate Goal (LTG) Pt able to demonstrate 25% improvement in trunk mobility in all directions. Pt demonstrates plateau in trunk mobility on 12/01/22 LTG Duration 12/05/22 Two Impairment Balance Impairment Pt able to maintain balance on R LE for 12 seconds and L for 4 seconds. Short Term Goal (STG) Pt able to maintain balance for 15 seconds on ea LE. GOAL MET on 10/21/22: Pt able to balance for 25 seconds STG Duration 10/17/22-achieved Intermediate Goal (LTG) Pt able to maintain balance for 20 seconds ea LE. GOAL MET on 10/21/22: Pt able to balance for 25 seconds LTG Duration 10/31/22 One Impairment Bilateral foot symptoms Impairment Pt rates foot numbness at 7/10 . Short Term Goal (STG) Pt will report foot numbness rating at 4/10. GOAL MET: Pt reports R foot at 0-4/10, L foot at 4-5/10. STG Duration 10/17/22 Staffing Rn Goal (LTG) Pt will report foot numbness rating at 2/10. Goal unmet: Plateau in progress since previous assessment. LTG Duration 12/05/22 Assessment Summary Assessment POC extended for reassessment and HEP finalization. Pt demonstrates improved overall symptoms since start of PT, though has demonstrated a plateau in progress. Pt demonstrates good understanding of HEP and encouraged to continue. Pt agreeable to d/c at this time. Physical Therapy Plan Frequency and Duration Frequency of Treatment 2x/Week Duration of treatment (weeks) 9 Plan of Care Start Date 10/03/22 Plan of Care End Date 12/05/22 Therapeutic Interventions Therapeutic Interventions Balance Training,Coordination Training,Gait Training,Home Exercise Program,Joint Mobilizations,Neuromuscular Re -education,Patient/Caregiver Education,Self-Care/Home Management,Soft Tissue Mobilization,Taping, Therapeutic Activities, Therapeutic Exercises Modalities Cold Pack/Ice Massage,Electric Stimulation,Hot Packs, Ultrasound Discharge Physical Therapy Discharge Reasons Plateau in Progress Discharge Comments Pt given HEP to continue. Next Visit Focus/Plan Next Note Type Treatment Note Next Visit Plan Continue to progress balance, progress trunk exercises as tolerated, add to table core exercise.
--- NOTE | 2022-12-01 09:03 | PT.OPPOC ---
Physical, Occupational & Speech Therapy At [facility] Current Diagnoses Other abnormalities of gait and mobility (12/01/22) History of falling (12/01/22) Visit Care Team Role Provider Type DMITRY Matos Attending Provider Advanced Naturopathic Doctor Family Provider Primary Care Provider Referring Provider Specialty: [facility] Address: [address] [place] [address], [facility] Email: [email or web address] Plan Of Care PT-OP-T Assessment and Plan Start: 10/02/22 16:01 Freq: Status: Active Protocol: Document 12/01/22 09:03 AM (Rec: 12/01/22 09:12 AM [id number]) Physical Therapy Assessment Goals Five Impairment Hip strength Impairment Pt with 4-/5 to 4/5 hip strength. C Iron Worker Goal (LTG) Pt able to demonstrate 4/5-4+/ 5 hip strength grossly. Partially met on 12/01/22. Pt continues to demonstrate weakness at gluteals, demonstrating hip drop with unilateral stance. LTG Duration 12/05/22 Four Impairment HEP Impairment Pt not currently participating in HEP. Usp Goal (LTG) Pt independent with HEP. Goal Met: Pt demonstrates good understanding of HEP and encouraged to continue to progress strength independently. LTG Duration 12/01/22-achieved Three Impairment Trunk mobility Impairment Pt demonstrates limited trunk mobility in all directions by 50% C Iron Worker Goal (LTG) Pt able to demonstrate 25% improvement in trunk mobility in all directions. Pt demonstrates plateau in trunk mobility on 12/01/22 LTG Duration 12/05/22 Two Impairment Balance Impairment Pt able to maintain balance on R LE for 12 seconds and L for 4 seconds. Short Term Goal (STG) Pt able to maintain balance for 15 seconds on ea LE. GOAL MET on 10/21/22: Pt able to balance for 25 seconds STG Duration 10/17/22-achieved Usp Goal (LTG) Pt able to maintain balance for 20 seconds ea LE. GOAL MET on 10/21/22: Pt able to balance for 25 seconds LTG Duration 10/31/22 One Impairment Bilateral foot symptoms Impairment Pt rates foot numbness at 7/10 . Short Term Goal (STG) Pt will report foot numbness rating at 4/10. GOAL MET: Pt reports R foot at 0-4/10, L foot at 4-5/10. STG Duration 10/17/22 C Iron Worker Goal (LTG) Pt will report foot numbness rating at 2/10. Goal unmet: Plateau in progress since previous assessment. LTG Duration 12/05/22 Assessment Summary Assessment POC extended for reassessment and HEP finalization. Pt demonstrates improved overall symptoms since start of PT, though has demonstrated a plateau in progress. Pt demonstrates good understanding of HEP and encouraged to continue. Pt agreeable to d/c at this time. Physical Therapy Plan Frequency and Duration Frequency of Treatment 2x/Week Duration of treatment (weeks) 9 Plan of Care Start Date 10/03/22 Plan of Care End Date 12/05/22 Therapeutic Interventions Therapeutic Interventions Balance Training,Coordination Training,Gait Training,Home Exercise Program,Joint Mobilizations,Neuromuscular Re -education,Patient/Caregiver Education,Self-Care/Home Management,Soft Tissue Mobilization,Taping, Therapeutic Activities, Therapeutic Exercises Modalities Cold Pack/Ice Massage,Electric Stimulation,Hot Packs, Ultrasound Discharge Physical Therapy Discharge Reasons Plateau in Progress Discharge Comments Pt given HEP to continue. Next Visit Focus/Plan Next Note Type Treatment Note Next Visit Plan Continue to progress balance, progress trunk exercises as tolerated, add to table core exercise. Plan of Care Dates Plan of Care Start Date 10/03/22 Plan of Care End Date 12/05/22 Electronically Signed by: Mita Dailey, PT 12/01/22 2362 If you are in agreement with this Plan of Care, please return a signed and dated copy. I have reviewed this Plan of Care and certify that the skilled therapy services above are required to meet the patient?s needs. Physician Signature Date Printed Name and Credentials Clinical Instructor Signature Printed Name and Credentials
== END 2022-12-03 11:17 | disposition home or self-care (01) ==
LOC: PHYS 09:00
PROVIDERS: Family Provider Nurse Practitioner; PCP Nurse Practitioner; Referring Provider Nurse Practitioner; Visit Provider Nurse Practitioner
DX: Z91.81 History of falling (principal); R26.89 Other abnormalities of gait and mobility
CPT/HCPCS: 97110; 97112; 97140; 97161

== ENCOUNTER 2024-02-18 22:46 | Observation (INO) | payer MEDICARE, OTHER, SELFPAY ==
--- NOTE | 2024-02-18 22:55 | ED_ITS ---
HPI - General Adult General Chief complaint: Abdominal Pain Stated complaint: vomiting, gi pain Time Seen by Provider: 02/18/24 22:54 Source: patient Mode of arrival: Ambulatory Limitations: no limitations History of Present Illness HPI narrative: Patient was a 73-year-old male. Not on anticoagulation. Is here for evaluation of generalized abdominal pain and vomiting. Symptoms has been present for the past several days. He felt like things were getting better this morning but then his symptoms started up again. He was had 2 episodes of urinary incontinence. No recent travel. No recent antibiotics. Has had an inguinal hernia repair but no other abdominal surgeries. No chest pain. No shortness of breath. Did not have any nausea medication at home. Related Data Home Medications Medication Instructions Recorded Confirmed clobetasol-emollient 0.05 % ##0 04/10/17 11/11/22 topical cream melatonin 3 mg tablet ##0 04/10/17 11/11/22 multivitamin 1 tab PO DAILY 07/29/17 11/11/22 5-hydroxytryptophan (5-HTP) 100 mg 200 mg PO DAILY 10/23/21 11/11/22 capsule (5-HTP) magnesium oxide 500 mg PO DAILY #0 tabs 10/23/21 11/11/22 riboflavin (vitamin B2) 50 mg 200 mg PO ##0 10/23/21 11/11/22 tablet (Vitamin B-2) mecobalamin (vitamin B12) 1,000 1,000 mcg PO DAILY 11/11/22 11/11/22 mcg lozenges Lactobacil rhamnosus GG 10 billion 1 cap PO DAILY 02/04/24 02/04/24 cell-inulin 200 mg sprinkle capsule ([facility] lemonade.[facility]) Previous Rx's Medication Instructions Recorded sumatriptan 20 mg/actuation nasal 20 mg intranasal .COMPLEX PRN 10/23/21 spray migraine headache #6 ea Allergies Allergy/AdvReac Type Severity Reaction Status Date / Time Iodinated Contrast Media Allergy Severe anaphalxis Verified 02/04/24 11:29 [IODINATED CONTRAST- ORAL AND IV DYE] Penicillins [PENICILLINS] Allergy Unknown Verified 02/04/24 11:29 Nktwmei-FWV-ZdD Reductase AdvReac Intermediate Memory loss Verified 02/04/24 11:29 Inhibitor NSAIA AdvReac Intermediate worsens Uncoded 02/04/24 11:29 bleeding from ITP Review of Systems Review of Systems ROS Unobtainable: All systems reviewed & are unremarkable except as noted in HPI and below Cardiovascular Cardiovascular: Reports system reviewed and no additional complaints, except as documented Respiratory Respiratory: Reports system reviewed and no additional complaints, except as documented Gastrointestinal Gastrointestinal: Reports system reviewed and no additional complaints, except as documented Patient History Medical History 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 They have autism. 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 Smoking Status: Never smoker alcohol intake: never Smoking Status: Never smoker Exam Initial Vital Signs Initial Vital Signs: Vital Signs Pulse Rate 89 02/18/24 22:59 Pulse Oximetry 96 02/18/24 22:59 Const General: cooperative, comfortable and No ill appearing HENMT Head: normal to inspection and normocephalic Resp Effort & Inspection: normal respiratory effort Auscultation: clear to auscultation bilaterally Cardio Rate: regular rate Rhythm: regular rhythm GI Inspection: non-distended Palpation: soft, No firm, No guarding and No tender Skin General: no rashes or lesions noted Neuro General: patient alert, patient awake, patient oriented x3 and moves all extremities Extrem General: capillary refill normal Course Orders Ordered: ED Orders 02/18/24 22:57 Complete Blood Count AUTO DIFF Stat Comprehensive Metabolic Panel Stat Lactate (Lactic Acid) Stat Lipase Stat 02/18/24 23:04 CT abdomen pelvis wo con Stat Sodium Chloride (Normal Saline 0.9%) 1,000 mls @ 150 mls/hr IV CONT KAILA Last Admin: 02/19/24 00:30 Dose: 150 mls/hr Discontinued Medications Sodium Chloride (Normal Saline 0.9%) 1,000 mls @ 1,000 mls/hr IV BOLUS ONE Stop: 02/19/24 00:09 Last Admin: 02/18/24 23:18 Dose: 1,000 mls/hr Documented By: CAROL Metoclopramide HCl (Metoclopramide 10 Mg/2 Ml Inj) 10 mg IV NOW ONE Stop: 02/19/24 00:18 Last Admin: 02/19/24 00:28 Dose: 10 mg Ondansetron HCl (Ondansetron 4 Mg Odt) 4 mg SL NOW ONE Stop: 02/18/24 22:57 Last Admin: 02/18/24 23:03 Dose: 4 mg Documented By: QUYEN Pantoprazole Sodium (Pantoprazole 40 Mg Vial) 40 mg IV NOW ONE Stop: 02/18/24 23:05 Last Admin: 02/18/24 23:18 Dose: 40 mg Documented By: CAROL Vital Signs Vital signs: Vital Signs - 8 hr 02/18/24 22:59 02/18/24 23:00 02/18/24 23:05 Temperature 98.6 F Pulse Rate 89 93 H 91 H Respiratory Rate 18 Blood Pressure 155/81 H Pulse Oximetry 96 96 96 Oxygen Delivery Method Room Air 02/19/24 00:00 Temperature Pulse Rate 84 Respiratory Rate 24 Blood Pressure Pulse Oximetry 96 Oxygen Delivery Method Medical Decision Making Lab Data Lab results reviewed: Yes I reviewed the patient's lab results. 02/18/24 22:57 02/18/24 22:57 Labs: Lab Results 02/18/24 Range/Units 22:57 WBC 15.3 H (4.5-11.0) X10^3/uL RBC 4.88 (4.5-5.9) X10^6/uL Hgb 14.9 (13.5-17.5) g/dL Hct 44.3 (41-53) % MCV 90.7 (80-100) fL MCH 30.6 (26-34) PG MCHC 33.7 (30-36) % RDW 13.8 (11.6-14.8) % Plt Count 219 (150-400) X10^3/uL Neut % (Auto) 91.8 H (50-75) % Lymph % (Auto) 2.8 L (25-40) % [place] % (Auto) 4.3 (3-14) % Eos % (Auto) 0.2 L (2-4) % Baso % (Auto) 0.9 (0-2) % Neut # (Auto) 93994 H (9950-3391) /uL Lymph # (Auto) 400 L (0625-8497) /uL [place] # (Auto) 700 (0-900) /uL Eos # (Auto) 0 (0-450) /uL Baso # (Auto) 100 (0-100) /uL Sodium 135 L (137-145) mmol/L Potassium 3.8 (3.4-5.1) mmol/L Chloride 95 L (98-107) mmol/L Carbon Dioxide 32 (22-32) mmol/L BUN 22 H (9-20) mg/dL Creatinine 1.16 (0.66-1.25) mg/dL Estimated GFR > 60 (>60) mL/min BUN/Creatinine Ratio 19.0 (6-22) Glucose 152 H (80-110) mg/dL Lactate 2.0 (0.7-2.1) mmol/L Calcium 9.4 (8.4-10.2) mg/dL Total Bilirubin 1.1 (0.2-1.3) mg/dL AST 34 (17-59) IU/L ALT 24 (<50) IU/L Alkaline Phosphatase 83 (38-126) U/L Total Protein 8.0 (6.3-8.2) g/dL Albumin 4.4 (3.5-5.0) g/dL Globulin 3.6 (1.7-4.1) g/dL Albumin/Globulin Ratio 1.2 (1.0-2.8) Lipase 615 H (23-300) U/L Imaging Data CT scan - abdomen/pelvis: Radiologist's Impression: PROCEDURE: CT ABDOMEN PELVIS WO CON INDICATIONS: vomiting TECHNIQUE: Axial sections were acquired from the lung bases to the pubic symphysis. Coronal and sagittal reformats were performed. For radiation dose reduction, the following was used: automated exposure control, adjustment of mA and/or kV according to patient size. COMPARISON: None. FINDINGS: Image quality: Diagnostic. Lower Chest: Bibasilar scarring/atelectasis is seen. Heart size is normal, no pericardial effusion. Large hiatal hernia. URINARY: Right Kidney: No stones or hydronephrosis. Right Ureter: No hydroureter. Left Kidney: No stones or hydronephrosis. Left Ureter: No hydroureter. Bladder: Normal wall thickness. At least 2 calcified bladder stones are seen measures up to 1.1 x 0 1 cm in size. ABDOMEN: Liver: No contour-deforming solid mass. Gallbladder: No radiopaque gallstones or wall thickening. Biliary ducts: No biliary dilation. Pancreas: No ductal dilation. Pancreas is prominent in size with mild peripancreatic fat stranding adjacent to pancreatic tail region series 2, image 51. No peripancreatic fluid collection. Spleen: Size is within normal limits. Adrenal Glands: No adrenal nodules. Stomach and Bowel: Markedly distended stomach lumen. Large hiatal hernia. No bowel obstruction. No abnormal bowel wall thickening. Colonic diverticulosis without CT evidence of acute diverticulitis. No abscess collection. Peritoneum: No abnormal intraperitoneal fluid. No free air. Ventral Wall: No hernia. Abdominal Nodes: No enlarged retroperitoneal or mesenteric lymph nodes. Vessels: Aorta and inferior vena cava are normal in size. PELVIS: Pelvic Organs: Mildly enlarged prostate gland with mass effect on floor of urinary bladder is seen. Pelvic Nodes: Unremarkable. Miscellaneous: Small bilateral inguinal hernia are seen containing fat only. Bones: No aggressive appearing bony lesions. IMPRESSION: 1. Large hiatal hernia with marked fluid distension of stomach lumen which may represent gastroparesis suggest clinical correlation. There is no bowel obstruction no abnormal bowel wall thickening. No free fluid or free air. Sigmoid diverticulosis without evidence of acute diverticulitis. 2. Questionable peripancreatic fat stranding involving pancreatic tail region, early pancreatitis cannot be excluded suggest clinical correlation and correlation with pancreatic enzyme levels. 3. No obstructing renal stones or hydronephrosis. Calcified bladder stones. No gross bladder wall abnormalities. Mildly enlarged prostate gland with mass effect on floor of urinary bladder. MDM Narrative Medical decision making narrative: Patient does have a leukocytosis however this could be because of all of the vomiting and he has been having for the couple days. Has a slight elevation in his lipase. He does have some discomfort in his upper abdomen. Did receive Zofran but was still vomiting. CT scan does show hiatal hernia. The patient has had issues with reflux in the past but does not express any concern of that recently. He does have some stranding around the pancreas and given his elevation in lipase could be the beginnings of pancreatitis or potentially improving pancreatitis. Low suspicion that this is gallbladder pathology. He was normal LFTs. Patient was given Reglan. He has had an endoscopy in the past but it was ?years ago? no blood in his stool. No signs of an overt obstruction on the CT scan. Given his CT findings and lipase and persistent vomiting I do feel that admission to the hospital would be warranted. Discussed case with Dr. Raymundo hospitalist on-call who will admit. Discussed the need for admission with the patient who expressed understanding and agreement as well. Discharge Plan Departure Patient Disposition: Admitted as Observation Clinical Impression: Vomiting, Pancreatitis, Hiatal hernia
[2024-02-18 22:59] VITALS: PULSE 89; O2SAT 96
[2024-02-18 23:00] VITALS: PULSE 93; O2SAT 96
[2024-02-18] MEDS: ONDANSETRON 4 MG ODT SL (23:03)
--- NOTE | 2024-02-18 23:04 | DI.CT.S_ITS ---
PROCEDURE: CT ABDOMEN PELVIS WO CON INDICATIONS: vomiting TECHNIQUE: Axial sections were acquired from the lung bases to the pubic symphysis. Coronal and sagittal reformats were performed. For radiation dose reduction, the following was used: automated exposure control, adjustment of mA and/or kV according to patient size. COMPARISON: None. FINDINGS: Image quality: Diagnostic. Lower Chest: Bibasilar scarring/atelectasis is seen. Heart size is normal, no pericardial effusion. Large hiatal hernia. URINARY: Right Kidney: No stones or hydronephrosis. Right Ureter: No hydroureter. Left Kidney: No stones or hydronephrosis. Left Ureter: No hydroureter. Bladder: Normal wall thickness. At least 2 calcified bladder stones are seen measures up to 1.1 x 0 1 cm in size. ABDOMEN: Liver: No contour-deforming solid mass. Gallbladder: No radiopaque gallstones or wall thickening. Biliary ducts: No biliary dilation. Pancreas: No ductal dilation. Pancreas is prominent in size with mild peripancreatic fat stranding adjacent to pancreatic tail region series 2, image 51. No peripancreatic fluid collection. Spleen: Size is within normal limits. Adrenal Glands: No adrenal nodules. Stomach and Bowel: Markedly distended stomach lumen. Large hiatal hernia. No bowel obstruction. No abnormal bowel wall thickening. Colonic diverticulosis without CT evidence of acute diverticulitis. No abscess collection. Peritoneum: No abnormal intraperitoneal fluid. No free air. Ventral Wall: No hernia. Abdominal Nodes: No enlarged retroperitoneal or mesenteric lymph nodes. Vessels: Aorta and inferior vena cava are normal in size. PELVIS: Pelvic Organs: Mildly enlarged prostate gland with mass effect on floor of urinary bladder is seen. Pelvic Nodes: Unremarkable. Miscellaneous: Small bilateral inguinal hernia are seen containing fat only. Bones: No aggressive appearing bony lesions. IMPRESSION: 1. Large hiatal hernia with marked fluid distension of stomach lumen which may represent gastroparesis suggest clinical correlation. There is no bowel obstruction no abnormal bowel wall thickening. No free fluid or free air. Sigmoid diverticulosis without evidence of acute diverticulitis. 2. Questionable peripancreatic fat stranding involving pancreatic tail region, early pancreatitis cannot be excluded suggest clinical correlation and correlation with pancreatic enzyme levels. 3. No obstructing renal stones or hydronephrosis. Calcified bladder stones. No gross bladder wall abnormalities. Mildly enlarged prostate gland with mass effect on floor of urinary bladder. Dictated by: Tejinder Jesus M.D. on 02/19/2024 at 0:00 Approved by: Tejinder Jesus M.D. on 02/19/2024 at 0:06
[2024-02-18 23:05] VITALS: BP 155/81; PULSE 91; RESP 18; TEMP 37; O2SAT 96; BMI 24.7
[2024-02-18] MEDS: SODIUM CHLORIDE 0.9% 1,000 ML 1000 ML IV (23:18)
[2024-02-18] MEDS: PANTOPRAZOLE 40 MG VIAL IV (23:18)
[2024-02-18 23:20] LABS: Add Manual Diff / Slide Review NO; Basophils Absolute Auto 100 /uL (0-100); Basophils Percent Auto 0.9 % (0-2); Eosinophils Absolute Auto 0 /uL (0-450); Eosinophils Percent Auto 0.2 % (2-4); Hematocrit 44.3 % (41-53); Hemoglobin 14.9 g/dL (13.5-17.5); Lymphocytes Absolute Auto 400 /uL (1100-4500); Lymphocytes Percent Auto 2.8 % (25-40); Mean Corpuscular HGB Conc 33.7 % (30-36); Mean Corpuscular Hemoglobin 30.6 PG (26-34); Mean Corpuscular Volume 90.7 fL (80-100); Monocytes Absolute Auto 700 /uL (0-900); Monocytes Percent Auto 4.3 % (3-14); Neutrophils Absolute Auto 14000 /uL (1500-7000); Neutrophils Percent Auto 91.8 % (50-75); Platelet Count 219 X10^3/uL (150-400); Red Blood Cell Count 4.88 X10^6/uL (4.5-5.9); Red Cell Distribution Width 13.8 % (11.6-14.8); White Blood Cell Count 15.3 X10^3/uL (4.5-11.0)
[2024-02-18 23:30] LABS: Alanine Aminotransferase 24 IU/L (<50); Albumin 4.4 g/dL (3.5-5.0); Albumin Globulin Ratio 1.2 (1.0-2.8); Alkaline Phosphatase 83 U/L (38-126); Aspartate Aminotransferase 34 IU/L (17-59); Bilirubin Total 1.1 mg/dL (0.2-1.3); Blood Urea Nitrogen 22 mg/dL (9-20); Calcium 9.4 mg/dL (8.4-10.2); Carbon Dioxide 32 mmol/L (22-32); Chloride 95 mmol/L (98-107); Estimated Glomerular Filt Rate > 60 mL/min (>60); Globulin 3.6 g/dL (1.7-4.1); Glucose 152 mg/dL (80-110); HEMOLYSIS < 15 (0-50); Lipase 615 U/L (23-300); Potassium 3.8 mmol/L (3.4-5.1); Sodium 135 mmol/L (137-145)
[2024-02-19] VITALS: PULSE 84; RESP 24; O2SAT 96
[2024-02-19] MEDS: METOCLOPRAMIDE 10 MG/2 ML INJ IV (00:28)
[2024-02-19 00:30] VITALS: PULSE 86; RESP 18
[2024-02-19] MEDS: SODIUM CHLORIDE 0.9% 1,000 ML 150 ML IV ×4 (00:30→14:23)
--- NOTE | 2024-02-19 01:12 | PM.HP.1 ---
History of Present Illness History of Present Illness Date Patient Seen: 02/19/24 Time Patient Seen: 01:30 Chief complaint: Nausea, Vomiting Narrative: 73 y/o with PMH of ITP, L5/S1 radiculopathy, migraine, asthma, presented to ER with nausea, vomiting and abdominal tenderness. It started few days earlier and got worse. Workup showing large hiatal hernia and mild pancreatitis. He is not aware of HH. He had EGD 5 years ago that was non-revealing as far as he remembers. Without heartburn or dyspepsia. He doesn't drink alcohol, LFTs WNR, w/o recent viral infections, likely idiopathic pancreatits. Placed in observation for IVFs, antiemetics. 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 They have autism. 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 Smoking Status: Never smoker alcohol intake: never Meds Home Medications and Allergies Home Medications Medication Instructions Recorded Confirmed Type clobetasol-emollient 0.05 % See Rx Instructions .Route 04/10/17 02/19/24 History topical cream .COMPLEX ##0 melatonin 3 mg tablet 3 mg PO BEDTIME ##0 04/10/17 02/19/24 History multivitamin 1 tab PO DAILY 07/29/17 02/19/24 History 5-hydroxytryptophan (5-HTP) 100 mg 200 mg PO BEDTIME 10/23/21 02/19/24 History capsule (5-HTP) magnesium oxide 500 mg PO DAILY #0 tabs 10/23/21 02/19/24 History riboflavin (vitamin B2) 50 mg 200 mg PO DAILY ##0 10/23/21 02/19/24 History tablet (Vitamin B-2) sumatriptan 20 mg/actuation nasal 20 mg intranasal .COMPLEX PRN 10/23/21 02/19/24 Rx spray migraine headache #6 ea mecobalamin (vitamin B12) 1,000 1,000 mcg PO DAILY 11/11/22 02/19/24 History mcg lozenges Lactobacil rhamnosus GG 10 billion 1 cap PO DAILY 02/04/24 02/19/24 History cell-inulin 200 mg sprinkle capsule ([employer]) Allergies Allergy/AdvReac Type Severity Reaction Status Date / Time Iodinated Contrast Media Allergy Severe anaphalxis Verified 02/04/24 11:29 [IODINATED CONTRAST- ORAL AND IV DYE] Penicillins [PENICILLINS] Allergy Unknown Verified 02/04/24 11:29 Rcglkob-ISQ-WnC Reductase AdvReac Intermediate Memory loss Verified 02/04/24 11:29 Inhibitor NSAIA AdvReac Intermediate worsens Uncoded 02/04/24 11:29 bleeding from ITP Review of Systems Cardiovascular Comments: w/o chest pain or palpitations Respiratory Comments: w/o dyspnea or cough Gastrointestinal Comments: nausea, vomiting, esophageal spasms, some upper abdominal diffuse tenderness Without diarrhea, constipation, heartburn, melena, hematochezia Exam Vital Signs (past 8 hours): - 02/18/24 22:59 02/18/24 23:00 02/18/24 23:05 Temperature 98.6 F Pulse Rate 89 93 H 91 H Respiratory Rate 18 Blood Pressure 155/81 H Pulse Oximetry 96 96 96 Oxygen Delivery Method Room Air 02/19/24 00:00 02/19/24 00:30 Temperature Pulse Rate 84 86 Respiratory Rate 24 18 Blood Pressure Pulse Oximetry 96 Oxygen Delivery Method Oxygen Delivery Method Room Air Const Other: In no distress HENMT Other: Normocephalic Resp Other: Normal respiratory effort Cardio Other: RRR GI Other: w/o distension or peritoneal signs Skin Other: w/o jaundice Psych Other: Normal mood, lucid Objective Labs 02/18/24 22:57 02/18/24 22:57 Labs: Laboratory Results - last 24 hr 02/18/24 22:57 WBC 15.3 H RBC 4.88 Hgb 14.9 Hct 44.3 MCV 90.7 MCH 30.6 MCHC 33.7 RDW 13.8 Plt Count 219 Neut % (Auto) 91.8 H Lymph % (Auto) 2.8 L [place] % (Auto) 4.3 Eos % (Auto) 0.2 L Baso % (Auto) 0.9 Neut # (Auto) 56704 H Lymph # (Auto) 400 L [place] # (Auto) 700 Eos # (Auto) 0 Baso # (Auto) 100 Sodium 135 L Potassium 3.8 Chloride 95 L Carbon Dioxide 32 BUN 22 H Creatinine 1.16 Estimated GFR > 60 BUN/Creatinine Ratio 19.0 Glucose 152 H Lactate 2.0 Calcium 9.4 Total Bilirubin 1.1 AST 34 ALT 24 Alkaline Phosphatase 83 Total Protein 8.0 Albumin 4.4 Globulin 3.6 Albumin/Globulin Ratio 1.2 Lipase 615 H Assessment & Plan Assessment and plan (1) Acute pancreatitis without necrosis or infection, unspecified: Qualifiers: Pancreatitis type: idiopathic Qualified Code(s): K85.00 - Idiopathic acute pancreatitis without necrosis or infection Status: Acute (2) Hiatal hernia: Status: Acute (3) Hyperlipidemia: Qualifiers: Hyperlipidemia type: mixed hyperlipidemia Qualified Code(s): E78.2 - Mixed hyperlipidemia Status: Acute (4) Asthma: Qualifiers: Asthma severity: mild Asthma persistence: intermittent Asthma complication type: uncomplicated Qualified Code(s): J45.20 - Mild intermittent asthma, uncomplicated Status: Acute (5) History of ITP: Status: Acute (6) Radiculopathy: Qualifiers: Spinal region: lumbosacral Qualified Code(s): M54.17 - Radiculopathy, lumbosacral region Status: Acute Assessment & Plan narrative: Acute Pancreatitis - idiopathic (with triglycerides pending), small tail section involved - NPO tonight, clear liquids trial in AM - IVFs, antiemetics Hiatal Hernia - large, he wasn't aware of it and denies heartburn, dyspepsia or epigastric pain - Protonix IV x 1 given in ED - referral to GI for EGD HLD - intolerant of statins - lipids pending Chronic ITP - Plt ~ 200 K L5/S1 b/l radiculopathy - chronic b/l feet numbness DVT prophylaxis - heparin Time-Based Coding :: [TOTAL MINUTES] spent with patient and on the chart (including review of chart, obtaining history, exam, reviewing outside data, placing orders, documenting exam and treatment plan, and counseling patient) on [DATE].
[2024-02-19 01:25] VITALS: BP 134/77; PULSE 93; RESP 18; TEMP 36.3; O2SAT 95
[2024-02-19 01:37] VITALS: BMI 24.7
[2024-02-19] MEDS: FAMOTIDINE 20 MG/2 ML VIAL 40 MG IV (03:49)
--- NOTE | 2024-02-19 04:28 | PC.NURSE ---
supervisor cell operation: Patient is AxOx4, VSS. Ambulatory with SBA. States that abdominal pain and nausea have subsided, although reports esophageal discomfort/spasms and reflux. MD spoke with patient via [facility] cart, updated patient on plan of care. NPO tonight, okay to start clear liquid diet for breakfast. IVF infusing. IV Pepcid given for reflux. Oriented to call-light, plan of care ongoing.
[2024-02-19 05:02] VITALS: BP 112/63; PULSE 103; RESP 18; TEMP 37.4; O2SAT 0
[2024-02-19 05:18] LABS: Add Manual Diff / Slide Review NO; Basophils Absolute Auto 0 /uL (0-100); Basophils Percent Auto 0.2 % (0-2); Eosinophils Absolute Auto 0 /uL (0-450); Eosinophils Percent Auto 0.1 % (2-4); Hematocrit 35.2 % (41-53); Hemoglobin 12.1 g/dL (13.5-17.5); Lymphocytes Absolute Auto 800 /uL (1100-4500); Lymphocytes Percent Auto 5.9 % (25-40); Mean Corpuscular HGB Conc 34.5 % (30-36); Mean Corpuscular Volume 89.9 fL (80-100); Monocytes Absolute Auto 900 /uL (0-900); Monocytes Percent Auto 6.8 % (3-14); Neutrophils Absolute Auto 11600 /uL (1500-7000); Platelet Count 189 X10^3/uL (150-400); Red Blood Cell Count 3.91 X10^6/uL (4.5-5.9); Red Cell Distribution Width 13.4 % (11.6-14.8); White Blood Cell Count 13.4 X10^3/uL (4.5-11.0)
[2024-02-19 05:36] LABS: Alanine Aminotransferase 19 IU/L (<50); Albumin 3.4 g/dL (3.5-5.0); Albumin Globulin Ratio 1.3 (1.0-2.8); Alkaline Phosphatase 52 U/L (38-126); Aspartate Aminotransferase 25 IU/L (17-59); BUN Creatinine Ratio 28.3 (6-22); Bilirubin Total 0.7 mg/dL (0.2-1.3); Blood Urea Nitrogen 26 mg/dL (9-20); Calcium 8.4 mg/dL (8.4-10.2); Carbon Dioxide 27 mmol/L (22-32); Chloride 105 mmol/L (98-107); Cholesterol 222 mg/dL (140-199); Estimated Glomerular Filt Rate > 60 mL/min (>60); Globulin 2.6 g/dL (1.7-4.1); Glucose 138 mg/dL (80-110); HDL Cholesterol 50 mg/dL (40-60); HEMOLYSIS < 15 (0-50); LDL Cholesterol Calculated 154 mg/dL (<100); Lipase 429 U/L (23-300); Potassium 3.6 mmol/L (3.4-5.1); Sodium 136 mmol/L (137-145); Triglycerides 91 mg/dL (35-150)
--- NOTE | 2024-02-19 07:29 | P.HP_ITS ---
History of Present Illness History of Present Illness Date Patient Seen: 02/19/24 Chief complaint: Nausea, Vomiting Narrative: From night doctor: 73 y/o with PMH of ITP, L5/S1 radiculopathy, migraine, asthma, presented to ER with nausea, vomiting and abdominal tenderness. It started few days earlier and got worse. Workup showing large hiatal hernia and mild pancreatitis. He is not aware of HH. He had EGD 5 years ago that was non- revealing as far as he remembers. Without heartburn or dyspepsia. He doesn't drink alcohol, LFTs WNR, w/o recent viral infections, likely idiopathic pancreatits. Placed in observation for IVFs, antiemetics. S: Overall, he feels much better with IV fluids. He has been on a clear liquid diet and doing well. Imaging did not indicate a hiatal hernia and he does have a history of dyspepsia. There is a concern for gastroparesis. He does note some recent increased dyspeptic symptoms as well. He would like to try to go home later today. 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 They have autism. 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 Smoking Status: Never smoker alcohol intake: never Meds Home Medications and Allergies Home Medications Medication Instructions Recorded Confirmed Type clobetasol-emollient 0.05 % See Rx Instructions .Route 04/10/17 02/19/24 History topical cream .COMPLEX ##0 melatonin 3 mg tablet 3 mg PO BEDTIME ##0 04/10/17 02/19/24 History multivitamin 1 tab PO DAILY 07/29/17 02/19/24 History 5-hydroxytryptophan (5-HTP) 100 mg 200 mg PO BEDTIME 10/23/21 02/19/24 History capsule (5-HTP) magnesium oxide 500 mg PO DAILY #0 tabs 10/23/21 02/19/24 History riboflavin (vitamin B2) 50 mg 200 mg PO DAILY ##0 10/23/21 02/19/24 History tablet (Vitamin B-2) sumatriptan 20 mg/actuation nasal 20 mg intranasal .COMPLEX PRN 10/23/21 02/19/24 Rx spray migraine headache #6 ea mecobalamin (vitamin B12) 1,000 1,000 mcg PO DAILY 11/11/22 02/19/24 History mcg lozenges Lactobacil rhamnosus GG 10 billion 1 cap PO DAILY 02/04/24 02/19/24 History cell-inulin 200 mg sprinkle capsule ([employer]) Allergies Allergy/AdvReac Type Severity Reaction Status Date / Time Iodinated Contrast Media Allergy Severe anaphalxis Verified 02/04/24 11:29 [IODINATED CONTRAST- ORAL AND IV DYE] Penicillins [PENICILLINS] Allergy Unknown Verified 02/04/24 11:29 Mrlnpgd-OGM-JcB Reductase AdvReac Intermediate Memory loss Verified 02/04/24 11:29 Inhibitor NSAIA AdvReac Intermediate worsens Uncoded 02/04/24 11:29 bleeding from ITP Review of Systems Review of Systems Narrative: All else reviewed and otherwise unremarkable except as noted in the history and physical. Exam Vital Signs (past 8 hours): - 02/19/24 00:00 02/19/24 00:30 02/19/24 01:25 Temperature 97.3 F L Pulse Rate 84 86 93 H Respiratory Rate 24 18 18 Blood Pressure 134/77 Pulse Oximetry 96 95 Oxygen Delivery Method Oxygen Flow Rate 0 02/19/24 02:20 02/19/24 05:02 Temperature 99.4 F Pulse Rate 103 H Respiratory Rate 18 Blood Pressure 112/63 Pulse Oximetry 0 L Oxygen Delivery Method Room Air Oxygen Flow Rate Oxygen Delivery Method Room Air Oxygen Flow Rate 0 Narrative Exam Narrative: NAD, alert and oriented, fluent speech, calm. Normocephalic skull, EOMI, anicteric sclera, symmetric pupils. Oropharynx unremarkable, no droop. Neck supple, midline trachea, no adenopathy. Lungs clear, normal rate and effort. Heart regular, no murmur gallop or rub. Abdomen is soft, non distended and non tender. Extremities are free of edema. Skin is free of rash or lesions. Joints are not swollen or deformed. Judgment appears to be normal. Objective Imaging CT scan - abdomen: Radiologist's impression: 1. Large hiatal hernia with marked fluid distension of stomach lumen which may represent gastroparesis suggest clinical correlation. There is no bowel obstruction no abnormal bowel wall thickening. No free fluid or free air. Sigmoid diverticulosis without evidence of acute diverticulitis. 2. Questionable peripancreatic fat stranding involving pancreatic tail region, early pancreatitis cannot be excluded suggest clinical correlation and correlation with pancreatic enzyme levels. 3. No obstructing renal stones or hydronephrosis. Calcified bladder stones. No gross bladder wall abnormalities. Mildly enlarged prostate gland with mass effect on floor of urinary bladder. Labs 02/19/24 05:04 02/19/24 05:04 Labs: Laboratory Results - last 24 hr 02/18/24 02/19/24 22:57 05:04 WBC 15.3 H 13.4 H RBC 4.88 3.91 L Hgb 14.9 12.1 L Hct 44.3 35.2 L MCV 90.7 89.9 MCH 30.6 31.0 MCHC 33.7 34.5 RDW 13.8 13.4 Plt Count 219 189 Neut % (Auto) 91.8 H 87.0 H Lymph % (Auto) 2.8 L 5.9 L [place] % (Auto) 4.3 6.8 Eos % (Auto) 0.2 L 0.1 L Baso % (Auto) 0.9 0.2 Neut # (Auto) 28934 H 88151 H Lymph # (Auto) 400 L 800 L [place] # (Auto) 700 900 Eos # (Auto) 0 0 Baso # (Auto) 100 0 Sodium 135 L 136 L Potassium 3.8 3.6 Chloride 95 L 105 Carbon Dioxide 32 27 BUN 22 H 26 H Creatinine 1.16 0.92 Estimated GFR > 60 > 60 BUN/Creatinine Ratio 19.0 28.3 H Glucose 152 H 138 H Lactate 2.0 Calcium 9.4 8.4 Total Bilirubin 1.1 0.7 AST 34 25 ALT 24 19 Alkaline Phosphatase 83 52 Total Protein 8.0 6.0 L Albumin 4.4 3.4 L Globulin 3.6 2.6 Albumin/Globulin Ratio 1.2 1.3 Triglycerides 91 Cholesterol 222 H LDL Cholesterol, Calc 154 H HDL Cholesterol 50 Lipase 615 H 429 H Assessment & Plan Assessment & Plan narrative: Acute pancreatitis present on admission and improving. - idiopathic (with triglycerides pending), small tail section involved - NPO tonight, clear liquids trial in AM - IVFs, antiemetics Hiatal Hernia, present on admission and active. - large, he wasn't aware of it and denies heartburn, dyspepsia or epigastric pain - Protonix IV x 1 given in ED - referral to GI for EGD HLD, stable - intolerant of statins - lipids pending Chronic ITP, stable - Plt ~ 200 K L5/S1 b/l radiculopathy, stable - chronic b/l feet numbness Plan: -IV fluids -analgesics -full liquid diet. -possible discharge later today with antiemetics if he was tolerating full liquids which he can do a slow advance at home with. We would also recommend PPI b.i.d. for the next interval period of time. DVT prophylaxis - heparin Time-Based Coding :: 35 min spent with patient and on the chart (including review of chart, obtaining history, exam, reviewing outside data, placing orders, documenting exam and treatment plan, and counseling patient) on 02/18. Quality MIPS - Admit I confirm the patient?s Advance Care Plan is present, Code status is documented, Surrogate decision maker is in patient?s record [If Yes, STOP here]: Yes MIPS - Meds 'Current medications' to include all prescriptions, [id number] products, herbals, cannabis/cannabidiol products, and vitamin/mineral/dietary (nutritional) supplements. I have utilized all available resources to obtain, update, or review the patient?s current medications. [If Yes, STOP here]: Yes
[2024-02-19 08:00] VITALS: BP 95/50; PULSE 83; RESP 16; TEMP 36.7; O2SAT 91
[2024-02-19] MEDS: HEPARIN 5,000 UNIT/ML VIAL 5000 UNIT SUBCUT (08:31)
--- NOTE | 2024-02-19 10:06 | PC.NURSE ---
Patient is alert and oriented x4, he is up independently in room and dressed. States that he feels more comfortable in his clothes. He is hoping to go home today, he ate some of his clear liquid diet. He used the bathroom and is sitting up on the couch. NS infusing at 150cc/hr
--- NOTE | 2024-02-19 11:27 | CM.DANOTE ---
Initial DCP Assessment Note Pt is a 73 yo male, lives in [place] w/his family, presents with N/V, abd pain, admitted OBS for further work up and management of suspected pancreatitis. PCP: Margie Gutierrez Payer: [facility]/[employer] Reviewed chart, pt discussed in multidisciplinary rounds this morning. Patient's sx have improved and he is likely to be discharged home today Patient lives independently with his adult children and is at cognitive and functional baseline. No barriers identified at this time to patient's safe discharge home w/family and close outpatient f/u . CM team will plan to follow clinical course closely in case any DC needs or concerns arise. 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 No History Provided By Patient,Medical Record Prior Living Arrangements House Household Members children Type of transporation used prior to Drives own vehicle admit Independent with ADL's Yes Is patient alert and oriented? Yes Comment no AD Comment Home Barriers to Discharge No Discharge Plan Home Transportation Arrangement Family Referrals Initiated None needed
[2024-02-19 12:00] VITALS: BP 99/64; PULSE 74; RESP 16; TEMP 36.4; O2SAT 94
--- NOTE | 2024-02-19 15:17 | PM.DS.1 ---
History of Present Illness History of Present Illness Chief complaint: Nausea, Vomiting Narrative: From night doctor: 73 y/o with PMH of ITP, L5/S1 radiculopathy, migraine, asthma, presented to ER with nausea, vomiting and abdominal tenderness. It started few days earlier and got worse. Workup showing large hiatal hernia and mild pancreatitis. He is not aware of HH. He had EGD 5 years ago that was non-revealing as far as he remembers. Without heartburn or dyspepsia. He doesn't drink alcohol, LFTs WNR, w/o recent viral infections, likely idiopathic pancreatits. Placed in observation for IVFs, antiemetics. S: Overall, he feels much better with IV fluids. He has been on a clear liquid diet and doing well. Imaging did not indicate a hiatal hernia and he does have a history of dyspepsia. There is a concern for gastroparesis. He does note some recent increased dyspeptic symptoms as well. He would like to try to go home later today. Discharge Providers Provider Date of admission: 02/19/24 00:41 Discharge Date: 02/19/24 Primary care physician: Margie Gutierrez MD Consults: None. Discharge provider: Joe Bradley MD Summary Hospital Course Discharge Diagnosis: 1. Acute pancreatitis present on admission and improving. - idiopathic (with triglycerides pending), small tail section involved 2. Hiatal Hernia, present on admission and active. - large, he wasn't aware of it and denies heartburn, dyspepsia or epigastric pain 3. HLD, stable - intolerant of statins 4. Chronic ITP, stable - Plt ~ 200 K 5. L5-S1 radiculopathy, stable - chronic b/l feet numbness Hospital Course: He was admitted with possible pancreatitis and hiatal hernia as well as dyspepsia. He was treated with bowel rest and PPI. The patient did improve and was able to tolerate a full liquid diet. He she was return home and continue a full liquid diet at home where he takes care of 2 challenge adult children. He will use Zofran as needed and omeprazole once daily. He will follow up with his PCP within the next week. I would recommended PPI indefinitely, and if he fails to improve may consider referral to GI for endoscopy or Dr. Hicks at [facility] for evaluation of hiatal hernia. Status at Discharge Cognitive/behavioral status at discharge: oriented Functional status at discharge: independent ambulation Overall status at discharge: patient is back to baseline Time Spent with Patient Time spent: Greater than 30 minutes Exam Vital Signs (past 8 hours): - 02/19/24 08:00 02/19/24 12:00 Temperature 98.1 F 97.6 F Pulse Rate 83 74 Respiratory Rate 16 16 Blood Pressure 95/50 L 99/64 Pulse Oximetry 91 94 Oxygen Flow Rate 0 0 Oxygen Delivery Method Room Air Oxygen Flow Rate 0 Narrative Exam Narrative: NAD, alert and oriented. Fluent speech. Lungs are clear, normal rate and effort. Heart is regular, no murmur gallop or rub. Abdomen is soft, non distended. Extremities are free of edema. Objective Labs 02/19/24 05:04 02/19/24 05:04 Labs: Laboratory Results - last 24 hr 02/18/24 02/19/24 22:57 05:04 WBC 15.3 H 13.4 H RBC 4.88 3.91 L Hgb 14.9 12.1 L Hct 44.3 35.2 L MCV 90.7 89.9 MCH 30.6 31.0 MCHC 33.7 34.5 RDW 13.8 13.4 Plt Count 219 189 Neut % (Auto) 91.8 H 87.0 H Lymph % (Auto) 2.8 L 5.9 L [place] % (Auto) 4.3 6.8 Eos % (Auto) 0.2 L 0.1 L Baso % (Auto) 0.9 0.2 Neut # (Auto) 13579 H 37679 H Lymph # (Auto) 400 L 800 L [place] # (Auto) 700 900 Eos # (Auto) 0 0 Baso # (Auto) 100 0 Sodium 135 L 136 L Potassium 3.8 3.6 Chloride 95 L 105 Carbon Dioxide 32 27 BUN 22 H 26 H Creatinine 1.16 0.92 Estimated GFR > 60 > 60 BUN/Creatinine Ratio 19.0 28.3 H Glucose 152 H 138 H Lactate 2.0 Calcium 9.4 8.4 Total Bilirubin 1.1 0.7 AST 34 25 ALT 24 19 Alkaline Phosphatase 83 52 Total Protein 8.0 6.0 L Albumin 4.4 3.4 L Globulin 3.6 2.6 Albumin/Globulin Ratio 1.2 1.3 Triglycerides 91 Cholesterol 222 H LDL Cholesterol, Calc 154 H HDL Cholesterol 50 Lipase 615 H 429 H PFSH Medical History 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 They have autism. 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 Acute pancreatitis present on admission and improving. 2. Hiatal Hernia, present on admission and active. LABS: Lipase 615 H (02/17) 429 H (02/18) Triglycerides 91 Plan of Treatment: Discharge home with close follow up with the PCP in, continue omeprazole once daily. Consider referral to GI for endoscopy versus Dr. Hicks of General surgery at [facility] to assess his hiatal hernia. Discharge Plan Discharge Plan Patient Disposition: Home Provider Discharge Comment: Stable for discharge home. Discharge orders & Medications Prescriptions: New ondansetron 4 mg tablet,disintegrating 4 mg PO Q8H PRN (Reason: nausea and vomiting) 4 Days Qty: 14 0RF Continued [facility] 10 billion cell -200 mg capsule, sprinkle 1 cap PO DAILY melatonin 3 MG tablet 3 mg PO BEDTIME Qty: 0 clobetasol-emollient 0.05 % cream See Rx Instructions .ROUTE .COMPLEX Qty: 0 Rx Instructions: apply as needede for eczema riboflavin (vitamin B2) [Vitamin B-2] 50 mg tablet 200 mg PO DAILY Qty: 0 Rx Instructions: Migraine prevention magnesium oxide 500 mg tablet 500 mg PO DAILY Qty: 0 Rx Instructions: migraine prevention sumatriptan 20 mg/actuation spray,non-aerosol 20 mg NASAL .COMPLEX PRN (Reason: migraine headache) Qty: 6 11RF Rx Instructions: 20 mg NASAL 1 at onset, may repeat in 2 hours; administer into one nostril; may repeat once in 2 or more hours PRN mecobalamin (vitamin B12) 1,000 mcg lozenge 1,000 mcg PO DAILY Rx Instructions: allow to dissolve in mouth OR may chew lightly before swallowing multivitamin tablet 1 tab PO DAILY 5-hydroxytryptophan (5-HTP) [5-HTP] 100 mg capsule 200 mg PO BEDTIME Follow up/Referrals: Margie Gutierrez MD [Primary Care Provider] - Diet/Activity/Treatments Diet comment: Stick with full liquids for the next several days and slowly advance. Visit Report/Discharge Packet Instructions: Acute Pancreatitis, DI for Hiatal Hernia Stand Alone Forms: Patient Portal/API, Stroke Signs & Symptoms Discharge Data Primary Care Provider: Margie Gutierrez Attending Provider: Aidan Adams Admit Date/Time: 02/19/24 00:41
== END 2024-02-19 15:55 | disposition home or self-care (01) ==
LOC: ED 02-19 00:40 → AC 02-19 00:44
PROVIDERS: Admitting Provider Internal Medicine; Emergency Provider Emergency Medicine; Family Provider Nurse Practitioner; PCP Family Medicine; Visit Provider Internal Medicine
DX: K85.00 Idiopathic acute pancreatitis without necrosis or infection (principal); K44.9 Diaphragmatic hernia without obstruction or gangrene; D69.3 Immune thrombocytopenic purpura; E78.2 Mixed hyperlipidemia; J45.20 Mild intermittent asthma, uncomplicated; M54.17 Radiculopathy, lumbosacral region
CPT/HCPCS: 36415; 74176; 80053; 80061; 83605; 83690; 85025; 96361; 96372; 96374; 96375; 99284; G0378; J1644; J2470; J2765

== ENCOUNTER → 2024-08-23 09:49 | Outpatient (CLI) | payer MEDICARE, OTHER, SELFPAY ==
[2024-02-22 14:02] VITALS: BMI 24.7
[2024-08-23 10:33] LABS: Add Manual Diff / Slide Review NO; Hematocrit 40.3 % (41-53); Hemoglobin 13.8 g/dL (13.5-17.5); Lymphocytes Absolute Auto 1100 /uL (1100-4500); Mean Corpuscular HGB Conc 34.2 % (30-36); Mean Corpuscular Hemoglobin 30.9 PG (26-34); Mean Corpuscular Volume 90.2 fL (80-100); Platelet Count 165 X10^3/uL (150-400)
[2024-08-23 10:51] LABS: Cholesterol 279 mg/dL (140-199); HDL Cholesterol 66 mg/dL (40-60); Triglycerides 87 mg/dL (35-150)
== END ==
PROVIDERS: Family Provider Nurse Practitioner; PCP Family Medicine; Referring Provider Family Medicine; Visit Provider Family Medicine
DX: D69.3 Immune thrombocytopenic purpura (principal); E78.5 Hyperlipidemia, unspecified
CPT/HCPCS: 36415; 80061; 85025